=== PATIENT | male | born 1965 | race Caucasian/White ===

== ENCOUNTER 2016-09-08 11:17 | Inpatient (IN) | payer BC ==
[~2016-09-08] VITALS: Ht 177.8 cm; Wt 95.3 kg
[2016-09-08 13:35] VITALS: Ht 177.8 cm; Wt 95.3 kg
[2016-09-08 13:46] VITALS: BP 167/86; PULSE 88; RESP 20
[2016-09-08] MEDS ORDERED: ONDANSETRON 4 MG INJ IV PRN (16:00)
[2016-09-08] MEDS ORDERED: NACL 0.9% 3 ML SYG IV SCH (16:00)
[2016-09-08] MEDS ORDERED: BISACODYL (EC) 5 MG TAB PO PRN (16:00)
[2016-09-08] MEDS ORDERED: DOCUSATE SODIUM 100 MG CAP PO PRN (16:00)
--- NOTE | 2016-09-08 17:00 | RADRPT ---
PROCEDURE: US Abdomen (right upper quadrant). CLINICAL INDICATION: Right upper quadrant abdomen pain. TECHNIQUE: Multiple real-time longitudinal and transverse images of the right upper quadrant of th e abdomen were acquired utilizing a curved array transducer. Images were reviewed on a high-resoluti on PACS workstation. COMPARISON: None FINDINGS: The liver is enlarged and diffusely increased in echogenicity. There is no focal hepatic lesion. Color Doppler and pulsed Doppler sonography demonstrate normal a ntegrade flow in the portal vein. The gallbladder is normal with no stones or wall thickening. There is no pericholecystic fluid oscar ection. The bile ducts are normal with the common bile duct measuring 3.2 mm in diameter. The visualized portions of the pancreas are unremarkable with obscuration of the tail of the pancrea s. No free fluid is present. The right kidney measures 11.0 x 5.7 x 5.8 cm. There is normal echogenicity of the right kidney. There is no perinephric fluid collection. No hydronephrosis, mass, or calculus is seen. IMPRESSION: 1. Hepatomegaly. 2. Fatty metamorphosis of the liver. 3. Otherwise normal right upper quadrant abdomen ultrasound. RPTAT: QQ .Maximo Johns MD, MD Date Time Electronically viewed and signed by .Maximo Johns MD, MD on 09/08/2016 16:59 .R/
[2016-09-08] MEDS: MULTIVITAMINS THERAPEUTIC TAB PO SCH (17:32)
[2016-09-08] MEDS: THIAMINE 100 MG TAB PO SCH (17:32)
[2016-09-08] MEDS: FOLIC ACID 1 MG TAB PO SCH (17:32)
--- NOTE | 2016-09-08 17:50 | HP ---
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 CHIEF COMPLAINT: Anemia. HISTORY OF PRESENT ILLNESS: This is a pleasant 51-year-old gentleman with past medical history of a lcoholism and current alcohol intake 3 to 4 shots of vodka per evening who presented to [facility] secondary for evaluation of anemia. The patient reported that he went to his [facility] doctor last week, and blood draw was done on and was asked to go to emergency room with a hemoglobin 7.2. Upon evaluation at [facility], patient's vital signs were found to be stable . Hemoglobin 8.3, hematocrit 30.1. He was typed and crossed and transfused 1 unit of packed red bl ood cells, and secondary to insurance purposes, the patient has been transferred to [facility]. According to the ER doctor, the patient was stable to be transferred to [facility]. The patient denies having any fever, chills, weight gain, weight loss, anorexia. No chest pain, palpitations, edema, orthopnea. No change in visual acuity, diplopia, photophobia. Complains of having generalized weakness for the past month. No change in the color of stool. No s yncope. Positive for progressively worsening fatigue, generalized weakness, dyspnea on exertion whi ch has been worsening for the past month. The patient does not have any history of colonoscopy in t he past. His stool guaiac was found to be negative at [facility]. At this time, the patient denies having any other discomfort. PAST MEDICAL AND SURGICAL HISTORY: 1. Microcytic anemia. 2. Transaminitis. 3. History of pacemaker for symptomatic bradycardia. 4. Symptomatic bradycardia. 5. History of alcohol abuse. MEDICATIONS: None. FAMILY HISTORY: Mother had colon cancer. SOCIAL HISTORY: Positive for alcohol intake daily, 4 to 5 shots of vodka per night. REVIEW OF SYSTEMS: As above per HPI. Otherwise, 12 review of systems have been found to be negativ e. PHYSICAL EXAMINATION: VITAL SIGNS: Temperature 98.3, pulse 76, respirations 18, blood pressure 134/77, oxygen saturation 97% room air. GENERAL APPEARANCE: The patient is lying in bed comfortably without any distress. He is awake, artemio rt, oriented. He is able to answer my questions properly. EYES, EARS, NOSE, THROAT: Conjunctivae, lids are normal. Pupils are normal. Extraocular normal. Hearing grossly normal. Lips, teeth are normal. Oral mucosa is moist. NECK: Supple. Trachea is midline. No lymphadenopathy. RESPIRATORY: Effort is normal. Clear to auscultate bilaterally. CARDIOVASCULAR: Normal S1, S2. Regular rhythm and rate. No murmur, no bruits, no edema. Peripher al pulses, radial pulses palpable. Capillary refill is normal. CHEST: Normal expansion of thorax during inspiration. GASTROINTESTINAL: Abdomen is soft, nontender, not distended. Bowel sounds are present. No guardin g, no rebound. GENITOURINARY: Deferred. MUSCULOSKELETAL: Upper, lower extremities within normal limits. Full range of motion. Strength 5/ 5, both upper and lower extremities. NEUROLOGIC: Cranial nerves II-XII are grossly intact. PSYCHIATRIC: Normal judgment and insight. Alert, oriented x3. Mood and affect are normal. LABORATORY WORK: WBC 5.3, hemoglobin 8.3, hematocrit 30.1, platelets 437. Sodium 143, potassium 3. 6, chloride 104, bicarbonate 24, BUN 12, creatinine 0.9, GFR greater than 60, glucose 104, calcium 8 .7, magnesium 1.8, total bilirubin 0.4, AST 193, ALT 89, alkaline phosphatase of 130. Troponin nega tive. BNP 42. Reticulocyte count 0.8. Iron level 11, total iron binding ____ 462, iron saturation 2, ferritin 20.6. Albumin 4.4. ASSESSMENT AND PLAN: 1. Symptomatic anemia. The patient at this time has been transfused 1 unit of packed red blood nic ls. Will follow hemoglobin and hematocrit in a.m. Guaiac was found to be negative. 2. History of alcoholism. The patient has been started on folic acid, thiamine and multivitamin. Also will start the patient on Ativan and Librium. Education was provided regarding the risks of th e alcoholism. Alcohol cessation was advised. 3. Transaminitis secondary to history of alcoholism. Will continue to monitor. Will obtain abdomi nal ultrasound. 4. History of symptomatic bradycardia, status post pacemaker placement ____ pacemaker. 5. For deep venous thrombosis prophylaxis, on sequential compression devices. 6. For gastrointestinal prophylaxis, on proton pump inhibitor. 7. Will continue to monitor patient closely. Further recommendations, management and treatment as per clinical course. Dictated By: CATHERINE PRICE MD PN/GUSTAVO Conf#: [id number] DID#: [id number]
[2016-09-08] MEDS: LORAZEPAM 2 MG INJ IV PRN (19:49)
[2016-09-08 20:00] VITALS: BP 134/78; RESP 18
[2016-09-08] MEDS: CHLORDIAZEPOXIDE 25 MG CAP PO SCH (21:05)
[2016-09-09] MEDS: LORAZEPAM 2 MG INJ IV PRN (05:49)
[2016-09-09 05:52] LABS: ADD SCAN DIFF NO
[2016-09-09 05:58] LABS: ABNORMAL IP MESSAGE 1; BASOPHIL # 0.1 10^3/ul (0.0-0.1); BASOPHILS % 1.5 % (0.0-2.0); EOSINOPHILS # 0.3 10^3/ul (0.0-0.5); EOSINOPHILS % 4.7 % (0.0-7.0); HEMATOCRIT 35.2 % (42.0-52.0); HEMOGLOBIN 9.9 g/dl (14.0-18.0); LYMPHOCYTES # 1.2 10^3/ul (0.8-2.9); LYMPHOCYTES % 21.6 % (15.0-51.0); MEAN CORPUSCULAR HEMOGLOBIN 20.2 pg (29.0-33.0); MEAN CORPUSCULAR HGB CONC 28.1 g/dl (32.0-37.0); MEAN CORPUSCULAR VOLUME 71.8 fl (82.0-101.0); MEAN PLATELET VOLUME 9.4 fl (7.4-10.4); MONOCYTE # 0.5 10^3/ul (0.3-0.9); MONOCYTES % 9.8 % (0.0-11.0); NEUTROPHIL # 3.4 10^3/ul (1.6-7.5); PLATELET COUNT 460 10^3/UL (140-415); RED CELL DISTRIBUTION WIDTH 21.6 % (11.5-14.5); WHITE BLOOD COUNT 5.5 10^3/ul (4.8-10.8)
[2016-09-09] MEDS ORDERED: PANTOPRAZOLE (EC) 40 MG TAB PO SCH (06:00)
[2016-09-09 06:14] LABS: ALBUMIN 4.4 g/dl (3.3-4.9)
[2016-09-09 06:15] LABS: POTASSIUM 3.8 mmol/L (3.5-5.1)
[2016-09-09 06:17] LABS: ALBUMIN/GLOBULIN RATIO 1.15; BILIRUBIN,INDIRECT 1.2 mg/dl (0-1.1); BILIRUBIN,TOTAL 1.2 mg/dl (0.2-1.3); CREATININE 0.8 mg/dl (0.61-1.24); TOTAL PROTEIN 8.2 g/dl (6.1-8.1)
[2016-09-09 06:18] LABS: CALCIUM 9.6 mg/dl (8.4-10.2); MAGNESIUM 1.7 mg/dl (1.7-2.5)
[2016-09-09 07:17] LABS: THYROID STIMULATING HORMONE 2.17 MIU/L (0.465-4.680)
[2016-09-09 07:57] VITALS: BP 151/79; RESP 20
[2016-09-09] MEDS: THIAMINE 100 MG TAB PO SCH (08:06)
[2016-09-09] MEDS: FOLIC ACID 1 MG TAB PO SCH (08:06)
[2016-09-09] MEDS: CHLORDIAZEPOXIDE 25 MG CAP PO SCH (08:06)
[2016-09-09] MEDS: MULTIVITAMINS THERAPEUTIC TAB PO SCH (08:06)
--- NOTE | 2016-09-09 11:00 | PDOCDIS ---
Discharge Instructions CONDITION Patient Condition: Good HOME CARE INSTRUCTIONS: Special Diet: regular ACTIVITY: Activity Restrictions: No Restrictions FOLLOW UP/APPOINTMENTS Appointments Follow-up with primary care physician on 09/11/2016 OTHER ORDERS: Other Orders: Refrain from consumption of any alcoholic drinks CATHERINE PRICE MD Sep 09, 2016 11:00
[2016-09-09] MEDS ORDERED: FOLI-49 PO (11:03)
[2016-09-09] MEDS ORDERED: MULTI PO (11:03)
[2016-09-09] MEDS ORDERED: Thiamine PO (11:03)
[2016-09-09] MEDS ORDERED: LORA1TAB PO (11:03)
[2016-09-09] MEDS ORDERED: CHLO25CA9 PO (11:03)
[2016-09-09] MEDS ORDERED: ONDA-43 PO (11:03)
[2016-09-09] MEDS ORDERED: OMEP20CA16 PO (11:03)
[2016-09-09] MEDS ORDERED: ASCO500C7 PO (11:08)
[2016-09-09] MEDS ORDERED: FER325 PO (11:08)
--- NOTE | 2016-09-09 11:50 | DS ---
DATE OF ADMISSION: 09/08/2016 DATE OF DISCHARGE: 09/09/2016 CONSULTANTS: None. PROCEDURE: None. DIAGNOSES: 1. Symptomatic anemia, status post transfusion 1 unit packed red blood cell and negative guaiac. 2. Microcytic anemia. The patient was started on ferrous sulfate. 3. History of alcoholism. The patient was started on folic acid, thiamine and multivitamin, Ativan and Librium, alcohol cessation was advised. 4. Transaminitis secondary to alcoholism, improving. 5. History of symptomatic bradycardia status post pacemaker placement. 6. Anxiety secondary to alcohol withdrawal resolved. LABORATORY: Sodium 141, potassium 3.8, chloride 102, bicarbonate 28, BUN 10, creatinine 0.80, gluco se 107, calcium 9.6, magnesium 1.7, direct bilirubin 0, indirect bilirubin 1.2, AST 156, ALT 88, alk rip phosphatase 129. Total protein 8.2, albumin 4.4. WBC 5.5, hemoglobin 9.9, hematocrit 35.2, p latelets 460, MCV 71.8, RDW 21.6. HOSPITAL COURSE: Mr. William Toure is a pleasant 51-year-old gentleman with past medical history o f alcoholism who currently drinks 3 to 4 shots of vodka per evening and presented to [facility] for evaluation of anemia. The patient was seen and evaluated by his primary care hermelinda spear last week. Blood draw was obtained and patient was called and asked to go to the emergency r oom secondary to hemoglobin 7.2. Upon evaluation at [facility] the patient's vital signs were found to be stable, hemoglobin 8.3, hematocrit 30.1. The patient was typed and crossed and transfused 2 units of packed red blood cell, secondary to insurance purpose and patient be capitated to [facility]. He was transferred to [facility]. According to the ER docto r, the patient was stable to transfer to [facility]. The patient denied having an y chest pain, shortness of breath or any other discomfort except generalized weakness. No change in the color of stool. No dysuria, hematuria, urgency, incontinence, no melena, no hematochezia or he matemesis. The patient was started on folic acid, multivitamin, thiamine, Ativan and Librium. His hemoglobin and hematocrit have been improving since his admission. His visit at [facility] had a brannon walker talk with Mr. Toure regarding his history and current use of alcohol intake and discussed t he use of Librium and Ativan with him that he will need in case of having any alcohol withdrawal. I also have discussed the risks of continuing alcohol intake with possible cirrhosis, end-stage renal disease and with him in detail. At this time, the patient has decided to quit drinking. He has done this in the past, but he was unsuccessful secondary to withdrawal, although, at this time h e is adamant that he will discontinue drinking. I will get social service involved to get informatio n regarding AA meetings and other helpful full . At this time, patient is medically stable to be discharged home with a close followup with his primary care physician as outpatient. He needs to have his liver function tests and CBC evaluated in 2 days. Dictated By: CATHERINE ROSA/GUSTAVO Conf#: [id number] DID#: [id number]
== END 2016-09-09 12:00 | disposition home or self-care (01) | DRG 812 ==
LOC: MS2 13:01
PROVIDERS: ADMIT Internal Medicine; ATTEND Internal Medicine
DX: D64.9 Anemia, unspecified (principal); F10.239 Alcohol dependence with withdrawal, unspecified; F10.280 Alcohol dependence with alcohol-induced anxiety disorder; D50.9 Iron deficiency anemia, unspecified; R74.0 Nonspecific elevation of levels of transaminase and lactic acid dehydrogenase [LDH]; Z86.59 Personal history of other mental and behavioral disorders; Z95.0 Presence of cardiac pacemaker
CPT/HCPCS: 76705; 80053; 83735; 84443; 85025; J2060; J2405

== ENCOUNTER 2017-03-12 15:41 | Inpatient (IN) | payer BC ==
[~2017-03-12] VITALS: Ht 177.8 cm; Wt 100.6 kg
[~2017-03-12 15:41] MED LIST: ASCO500C7 PO; CHLO25CA9 PO; FER325 PO; FOLI-49 PO; LORA1TAB PO; MULTI PO; OMEP20CA16 PO; ONDA-43 PO; Thiamine PO
[2017-03-12 21:00] VITALS: Ht 177.8 cm; Wt 100.6 kg
[2017-03-12 21:16] VITALS: PULSE 91
[2017-03-12 21:18] VITALS: BP 128/71; RESP 16
[2017-03-12] MEDS ORDERED: ONDANSETRON 4 MG INJ IV PRN (22:00)
[2017-03-12] MEDS ORDERED: LORAZEPAM 1 MG TAB PO PRN (22:00)
[2017-03-13] VITALS (11 sets, daily range): BP systolic 118–136; BP diastolic 63–80; PULSE 74–90; RESP 18–20
[2017-03-13 01:13] LABS: BASOPHIL # 0.1 10^3/ul (0.0-0.1); BASOPHILS % 1.2 % (0.0-2.0); EOSINOPHILS # 0.1 10^3/ul (0.0-0.5); EOSINOPHILS % 1.6 % (0.0-7.0); HEMATOCRIT 25.9 % (42.0-52.0); HEMOGLOBIN 7.8 g/dl (14.0-18.0); LYMPHOCYTES # 1.1 10^3/ul (0.8-2.9); LYMPHOCYTES % 13.9 % (15.0-51.0); MEAN CORPUSCULAR HEMOGLOBIN 26.5 pg (29.0-33.0); MEAN CORPUSCULAR HGB CONC 30.1 g/dl (32.0-37.0); MEAN CORPUSCULAR VOLUME 88.1 fl (82.0-101.0); MEAN PLATELET VOLUME 9.6 fl (7.4-10.4); MONOCYTES % 12.1 % (0.0-11.0); NEUTROPHIL # 5.8 10^3/ul (1.6-7.5); NEUTROPHILS % 70.5 % (39.0-77.0); PLATELET COUNT 515 10^3/UL (140-415); RED BLOOD COUNT 2.94 10^6/ul (4.70-6.10); RED CELL DISTRIBUTION WIDTH 16.6 % (11.5-14.5); WHITE BLOOD COUNT 8.2 10^3/ul (4.8-10.8)
[2017-03-13 01:27] LABS: IRON 15 ug/dl (35-150)
[2017-03-13 01:30] LABS: ALBUMIN 3.1 g/dl (3.3-4.9); ALBUMIN/GLOBULIN RATIO 0.88; BILIRUBIN,INDIRECT 0.7 mg/dl (0-1.1); BILIRUBIN,TOTAL 0.7 mg/dl (0.2-1.3); CALCIUM 8.1 mg/dl (8.4-10.2); CREATININE 0.94 mg/dl (0.61-1.24); MAGNESIUM 1.9 mg/dl (1.7-2.5); POTASSIUM 4.4 mmol/L (3.5-5.1); TOTAL PROTEIN 6.6 g/dl (6.1-8.1)
[2017-03-13 01:46] LABS: TOTAL IRON BINDING CAPACITY 371 ug/dl (241-421)
[2017-03-13 04:50] LABS: FERRITIN 21.9 ng/ml (11.1-264.0)
[2017-03-13] MEDS ORDERED: PANTOPRAZOLE 40 MG INJ IV SCH (06:00)
--- NOTE | 2017-03-13 07:33 | HP ---
Date/Time of Note Date/Time of Note DATE: 03/13/17 TIME: 07:26 Assessment/Plan VTE Prophylaxis VTE Prophylaxis Intervention: SCD's Lines/Catheters IV Catheter Type (from Nrs): Saline Lock Assessment/Plan Assessment/Plan 1. Anemia, suspect GI blood loss given history stool and alcohol abuse -Check FOBT, iron profile and ferritin -PPI -GI consult -Blood transfusion 2. History of pacemaker, likely 2/2 sick sinus -Continue telemetry monitoring 3. Epigastric abdominal pain -Abdominal ultrasound from August showed hepatomegaly and fatty liver -This could be from a gastritis or PUD -Continue PPI 4. Alcohol abuse, last drink 2 days ago -Monitor for withdrawal -Banana bag with as needed Ativan HPI/ROS Admit Date/Time Admit Date/Time Mar 12, 2017 at 21:00 Hx of Present Illness This is a 52-year-old male with a history of bradycardia status post pacemaker, alcohol abuse, anemia, fatty liver who initially presented to an outside hospital for anemia. Patient was transferred to [facility] for insurance reasons. He had a lab work at a clinic which showed hemoglobin of 7.2. As such he was told to go to the ER. At the outside hospital his hemoglobin was found to be 8.3 and was given blood transfusions. He complains of generalized weakness and epigastric abdominal pain. Reported dark stool x 8 days Denied hematemesis or BRBPR. Patient was admitted here in August of this year after he was transferred from [facility] for anemia. At that time he was given blood transfusion and was discharged. PMH/Family/Social Social History Smoking Status: Never smoker Exam/Review of Systems Vital Signs Vitals Vital Signs Date Time Temp Pulse Resp B/P Pulse Ox O2 Delivery O2 Flow Rate FiO2 03/13/17 04:29 79 03/13/17 03:58 98.6 19 123/64 98 Intake and Output 03/12/17 03/12/17 03/13/17 15:00 23:00 07:00 Intake Total 850 ml Output Total 900 ml Balance -50 ml Exam Constitutional: alert, oriented, well developed Head: atraumatic, normocephalic Eyes: EOMI, PERRL Respiratory: clear to auscultation, normal air movement Cardiovascular: nl pulses, regular rate and rhythm Gastrointestinal: soft, tender Extremities: normal pulses Labs Result Diagram: 03/13/17 0042 03/13/17 0042 Medications Medications Current Medications Ferrous Sulfate (Ferrous Sulfate (Ec)) 325 mg DAILY PO ; Start 03/13/17 at 09: 00 Folic Acid (Folic Acid) 1 mg DAILY PO ; Start 03/13/17 at 09:00 Lorazepam (Ativan) 1 mg Q6 PRN PO AGITATION/ANXIETY; Start 03/12/17 at 22:00 Multivitamins Therapeutic (Theragran) 1 tab DAILY PO ; Start 03/13/17 at 09:00 Thiamine HCl (Vitamin B1) 100 mg DAILY PO ; Start 03/13/17 at 09:00 Pantoprazole (Protonix Iv) 40 mg BID@06,18 IV Last administered on 03/13/17t 06:29; Admin Dose 40 MG; Start 03/13/17 at 06:00 Ondansetron HCl (Zofran Inj) 4 mg Q6H PRN IV NAUSEA AND/OR VOMITING; Start at 22:00 Morphine Sulfate (morphine) 2 mg Q4H PRN IV PAIN; Start 03/12/17 at 22:00 TRACE BUSTOS MD Mar 13, 2017 07:33
[2017-03-13] MEDS ORDERED: ACETAMINOPHEN 325 MG TAB PO PRN (08:00)
[2017-03-13] MEDS: THIAMINE 100 MG TAB PO SCH (08:36)
[2017-03-13] MEDS: FERROUS SULFATE (EC) 325 MG TAB PO SCH (08:36)
[2017-03-13] MEDS: FOLIC ACID 1 MG TAB PO SCH (08:37)
[2017-03-13] MEDS: MULTIVITAMINS THERAPEUTIC TAB PO SCH (08:37)
[2017-03-13] MEDS ORDERED: LORAZEPAM 2 MG INJ IV PRN (09:30)
[2017-03-13] MEDS ORDERED: DEXTROSE 5%-0.45% NACL 1,000 ML IV SCH (11:30)
[2017-03-13] MEDS: MULTIVITAMINS 10 ML, THIAMINE 100 MG, FOLIC ACID 1 MG in SOD CHLORIDE 0.9% 1,000 ML IVPB SCH (11:58)
[2017-03-13] MEDS: PANTOPRAZOLE IV 80 MG in SOD CHLORIDE 0.9% 100 ML IV SCH ×2 (11:59→21:21)
--- NOTE | 2017-03-13 15:22 | PN ---
Date/Time of Note Date/Time of Note DATE: 03/13/17 TIME: 15:21 Assessment/Plan VTE Prophylaxis VTE Prophylaxis Intervention: SCD's Lines/Catheters [facility]from [facility] Saline Lock Assessment/Plan Chief Complaint/Hosp Course Patient is a 52-year-old male with a past medical history of bradycardia status post pacemaker, alcoholism, anemia and fatty liver who presented as a transfer for anemia and possible GI bleed. Patient's hemoglobin was low upon admission. Assessment and plan GI bleed, questionable true GI bleed versus iron supplementation Anemia History of pacemaker Bradycardia, questionable sick sinus Epigastric abdominal pain Alcohol abuse Fatty liver -GI has been consulted, Protonix drip for now, patient will be on clears, requisitions appreciated -Patient transfused, monitor overnight, transfuse as needed repeat CBC ordered after transfusion -Control as needed -Fluid hydration -Ferritin low, very likely iron deficiency anemia, Problems: Subjective 24 Hr Interval Summary Free Text/Dictation no acute complaints, mild epigastric pain still Exam/Review of Systems Vital Signs Vitals Vital Signs Date Time Temp Pulse Resp B/P Pulse Ox O2 Delivery O2 Flow Rate FiO2 03/13/17 12:00 82 03/13/17 11:50 98.2 18 124/70 97 Intake and Output 03/12/17 03/12/17 03/13/17 15:00 23:00 07:00 Intake Total 850 ml Output Total 900 ml Balance -50 ml Exam Physical exam General: Patient is laying in bed and answers questions appropriately Mentation: Patient is alert and oriented 4, Head: Normocephalic atraumatic Eyes: EOMI, pupils reactive to light Neck: Supple, nontender, midline Respiratory: Clear to auscultation bilaterally Cardiovascular: regular rate, no obvious murmurs Gastrointestinal:mildly tender to epigastric palpation, bowel sounds heard. Neurological: Moves all extremities spontaneously Skin: No new skin lesions Results Result Diagram: 03/13/172 03/13/172 Results 24 hrs Laboratory Tests Test 03/13/17 00:42 03/13/17 11:10 White Blood Count 8.2 # Red Blood Count 2.94 #L Hemoglobin 7.8 #L Hematocrit 25.9 #L Mean Corpuscular Volume 88.1 # Mean Corpuscular Hemoglobin 26.5 #L Mean Corpuscular Hemoglobin Concent 30.1 L Red Cell Distribution Width 16.6 #H Platelet Count 515 H Mean Platelet Volume 9.6 Neutrophils % 70.5 Lymphocytes % 13.9 L Monocytes % 12.1 H Eosinophils % 1.6 Basophils % 1.2 Nucleated Red Blood Cells % 0.0 Neutrophils # 5.8 Lymphocytes # 1.1 Monocytes # 1.0 H Eosinophils # 0.1 Basophils # 0.1 Nucleated Red Blood Cells # 0.0 Sodium Level 141 Potassium Level 4.4 Chloride Level 108 Carbon Dioxide Level 23 Anion Gap 14 Blood Urea Nitrogen 10 Creatinine 0.94 Glucose Level 127 Calcium Level 8.1 L Phosphorus Level 3.0 Magnesium Level 1.9 Iron Level 15 L Total Iron Binding Capacity 371 Percent Iron Saturation 4 L Ferritin 21.9 Total Bilirubin 0.7 Direct Bilirubin 0.00 Indirect Bilirubin 0.7 Aspartate Amino Transf (AST/SGOT) 272 H Alanine Aminotransferase (ALT/SGPT) 90 H Alkaline Phosphatase 197 H Total Protein 6.6 Albumin 3.1 L Globulin 3.50 H Albumin/Globulin Ratio 0.88 Stool Occult Blood NEGATIVE Medications Medications Current Medications Ferrous Sulfate (Ferrous Sulfate (Ec)) 325 mg DAILY PO Last administered on 08:36; Admin Dose 325 MG; Start 03/13/17 at 09:00 Folic Acid (Folic Acid) 1 mg DAILY PO Last administered on 03/13/17 08:37; Admin Dose 1 MG; Start 03/13/17 at 09:00 Lorazepam (Ativan) 1 mg Q6 PRN PO AGITATION/ANXIETY; Start 03/12/17 at 22:00 Multivitamins Therapeutic (Theragran) 1 tab DAILY PO Last administered on 03/13 08:37; Admin Dose 1 TAB; Start 03/13/17 at 09:00 Thiamine HCl (Vitamin B1) 100 mg DAILY PO Last administered on 03/13/17 08:36 ; Admin Dose 100 MG; Start 03/13/17 at 09:00 Ondansetron HCl (Zofran Inj) 4 mg Q6H PRN IV NAUSEA AND/OR VOMITING; Start at 22:00 Morphine Sulfate 2 mg 2 mg Q4H PRN IV PAIN; Start 03/12/17 at 22:00 Multivitamins/ Thiamine HCl/ Folic Acid/Sodium Chloride (Mvi Adult/ Vitamin B1/ Folic Acid/NS) 1,011.2 ml @ 125 mls/ hr DAILY@09 IVPB Last administered on 11:58; Admin Dose 125 MLS/HR; Start 03/13/17 at 09:00; Stop 03/15/17 at 22:00 Acetaminophen 650 mg 650 mg Q4H PRN PO PAIN AND OR ELEVATED TEMP Last administered on 03/13/17 08:12; Admin Dose 650 MG; Start 03/13/17 at 08:00 Pantoprazole/ Sodium Chloride (Protonix Iv/NS) 100 ml @ 10 mls/hr Q10H IV Last administered on 03/13/17 11:59; Admin Dose 10 MLS/HR; Start 03/13/17 at 10:00 Lorazepam 2 mg 2 mg Q10MIN PRN IV seizure; Start 03/13/17 at 09:30 Dextrose/Sodium Chloride (D5-1/2ns) 1,000 ml @ 70 mls/hr [id number] IV ; Start at 11:30 AURELIO GRIMM Mar 13, 2017 15:22
[2017-03-13 17:07] LABS: BASOPHIL # 0.1 10^3/ul (0.0-0.1); BASOPHILS % 1.1 % (0.0-2.0); EOSINOPHILS # 0.3 10^3/ul (0.0-0.5); EOSINOPHILS % 3.2 % (0.0-7.0); HEMATOCRIT 31.1 % (42.0-52.0); HEMOGLOBIN 9.8 g/dl (14.0-18.0); LYMPHOCYTES # 1.3 10^3/ul (0.8-2.9); LYMPHOCYTES % 15.3 % (15.0-51.0); MEAN CORPUSCULAR HEMOGLOBIN 27.6 pg (29.0-33.0); MEAN CORPUSCULAR HGB CONC 31.5 g/dl (32.0-37.0); MEAN CORPUSCULAR VOLUME 87.6 fl (82.0-101.0); MEAN PLATELET VOLUME 9.3 fl (7.4-10.4); MONOCYTES % 10.9 % (0.0-11.0); NEUTROPHILS % 68.7 % (39.0-77.0); PLATELET COUNT 533 10^3/UL (140-415); RED BLOOD COUNT 3.55 10^6/ul (4.70-6.10); RED CELL DISTRIBUTION WIDTH 16.1 % (11.5-14.5); WHITE BLOOD COUNT 8.7 10^3/ul (4.8-10.8)
[2017-03-13] MEDS: SOD CHLORIDE 0.45% 1,000 ML IV SCH ×2 (19:00→21:22)
[2017-03-14] VITALS (12 sets, daily range): BP systolic 119–148; BP diastolic 67–80; PULSE 70–94; RESP 16–20
[2017-03-14] MEDS: SOD CHLORIDE 0.45% 1,000 ML IV SCH ×2 (01:30→11:30)
[2017-03-14] MEDS: PANTOPRAZOLE IV 80 MG in SOD CHLORIDE 0.9% 100 ML IV SCH ×4 (06:00→21:12)
[2017-03-14 07:13] LABS: BASOPHIL # 0.1 10^3/ul (0.0-0.1); EOSINOPHILS # 0.3 10^3/ul (0.0-0.5); EOSINOPHILS % 3.7 % (0.0-7.0); HEMATOCRIT 30.8 % (42.0-52.0); HEMOGLOBIN 9.7 g/dl (14.0-18.0); LYMPHOCYTES # 1.4 10^3/ul (0.8-2.9); LYMPHOCYTES % 16.3 % (15.0-51.0); MEAN CORPUSCULAR HGB CONC 31.5 g/dl (32.0-37.0); MEAN PLATELET VOLUME 9.3 fl (7.4-10.4); MONOCYTES % 11.4 % (0.0-11.0); NEUTROPHIL # 5.6 10^3/ul (1.6-7.5); NEUTROPHILS % 66.8 % (39.0-77.0); PLATELET COUNT 563 10^3/UL (140-415); RED BLOOD COUNT 3.46 10^6/ul (4.70-6.10); RED CELL DISTRIBUTION WIDTH 16.4 % (11.5-14.5); WHITE BLOOD COUNT 8.4 10^3/ul (4.8-10.8)
[2017-03-14 07:51] LABS: ALBUMIN 3.4 g/dl (3.3-4.9); ALBUMIN/GLOBULIN RATIO 0.89; BILIRUBIN,INDIRECT 0.9 mg/dl (0-1.1); BILIRUBIN,TOTAL 0.9 mg/dl (0.2-1.3); CALCIUM 8.2 mg/dl (8.4-10.2); CREATININE 0.85 mg/dl (0.61-1.24); TOTAL PROTEIN 7.2 g/dl (6.1-8.1)
[2017-03-14] MEDS: MULTIVITAMINS THERAPEUTIC TAB PO SCH (08:46)
[2017-03-14] MEDS: MULTIVITAMINS 10 ML, THIAMINE 100 MG, FOLIC ACID 1 MG in SOD CHLORIDE 0.9% 1,000 ML IVPB SCH (08:46)
[2017-03-14] MEDS: FERROUS SULFATE (EC) 325 MG TAB PO SCH (08:46)
[2017-03-14] MEDS: FOLIC ACID 1 MG TAB PO SCH (08:46)
[2017-03-14] MEDS: THIAMINE 100 MG TAB PO SCH (08:46)
--- NOTE | 2017-03-14 11:52 | CONS ---
Date/Time of Note Date/Time of Note DATE: 03/14/17 TIME: 11:31 Assessment/Plan Assessment/Plan Chief Complaint/Hosp Course Summary Assessment and Plan: Assessment: Anemia Elevated LFT's Abd pain Fatty liver ETOH abuse Plan: EGD tomorrow NPO after midnight Check hepatitis panel Patient seen in collaboration with Dr. Lombardo Endoscopy - risks/benefits/alternatives/indications of procedure and sedation/ anesthesia discussed with patient who states understanding and gives informed consent to proceed. Questions were answered. Chief Complaint/Reason for Visit: Anemia, elevated LFT's History of Present Illness: This is a pleasant 52-year-old male with a history anemia, fatty liver, ETOH abuse and pacemaker placement. Pt states he has been having dark stools for over a week with last dark stool on Wednesday. He states this has happened before and was found to be anemic needing blood transfusions. He currently drinks 6-8 glass of "hard alcohol" daily. He quit drinking alcohol in the past for a length of 6 months, but started drinking again due to external factors. Upon admission Hgb 7.8 Hct 25.9 Iron sat 4% Serum iron 15 TIBC 374. Currently Hbg 9.7 Hct 30.8. He denies any further episodes of "dark stools", stool occult blood negative during this admission. LFT's elevated and consistent with alcoholic liver disease [id number] ALT 74. He c/o abd pain, poor appetite, and nausea. Denies hematemesis, unintentional weight loss, or pyrosis. He has not had a previous endoscopy. Past Medical History: Anemia Pacemaker ETOG abuse Fatty liver Allergies: No known Allergies Family History: No pertinent history Social History: ETOH- 6-8 drinks per day of hard alcohol Denies smoking Denies current drug use Quit 30 years ago Never used IV drugs Problems: Consultation Date/Type/Reason Admit Date/Time Mar 12, 2017 at 21:00 Date of Consultation: Mar 14, 2017 Type of Consultation: GI Reason for Consultation Anemia Constitutional: no complaints Eyes: no complaints ENT: no complaints Respiratory: no complaints Cardiovascular: no complaints Gastrointestinal: blood, decreased appetite, diarrhea, nausea, pain, vomiting Genitourinary: no complaints Musculoskeletal: no complaints Skin: no complaints Neurologic: no complaints Endocrine: no complaints Lymphatic: no complaints Psychological: nl mood/affect Immunologic: no complaints Past Medical History Anemia, Pacemaker, Fatty liver Past Surgical History Past Surgical Hx: no surgical history Family History Significant Family History: no pertinent family hx Social History Alcohol Use: heavy Smoking Status: Never smoker Drug Use: none Other Social History Hx of drug use quit 30 years ago Never used IV drugs Exam/Review of Systems Vital Signs Vitals Vital Signs Date Time Temp Pulse Resp B/P Pulse Ox O2 Delivery O2 Flow Rate FiO2 03/14/17 08:48 70 03/14/17 07:49 99.9 19 119/67 97 Intake and Output 03/13/17 03/13/17 03/14/17 15:00 23:00 07:00 Intake Total 1660 ml 1735 ml Balance 1660 ml 1735 ml Exam Constitutional: alert, oriented Psych: no complaints Head: atraumatic, normocephalic Eyes: nl conjunctiva ENMT: nl external ears & nose Neck: supple Respiratory: clear to auscultation Cardiovascular: regular rate and rhythm Gastrointestinal: bowel sounds, hepatomegaly, soft, tender, No firm, No mass, No rebound or guarding, No splenomegaly, No surgical scars Genitourinary - Male: nl penis Musculoskeletal: nl extremities to inspection Extremities: normal pulses Results Result Diagram: 03/14/17 0642 03/14/17 0642 Results 24 hrs Laboratory Tests Test 03/13/17 16:41 03/14/17 06:42 White Blood Count 8.7 8.4 Red Blood Count 3.55 #L 3.46 L Hemoglobin 9.8 #L 9.7 L Hematocrit 31.1 #L 30.8 L Mean Corpuscular Volume 87.6 89.0 Mean Corpuscular Hemoglobin 27.6 L 28.0 L Mean Corpuscular Hemoglobin Concent 31.5 L 31.5 L Red Cell Distribution Width 16.1 H 16.4 H Platelet Count 533 H 563 H Mean Platelet Volume 9.3 9.3 Neutrophils % 68.7 66.8 Lymphocytes % 15.3 16.3 Monocytes % 10.9 11.4 H Eosinophils % 3.2 3.7 Basophils % 1.1 1.0 Nucleated Red Blood Cells % 0.0 0.0 Neutrophils # 6.0 5.6 Lymphocytes # 1.3 1.4 Monocytes # 1.0 H 1.0 H Eosinophils # 0.3 0.3 Basophils # 0.1 0.1 Nucleated Red Blood Cells # 0.0 0.0 Sodium Level 139 Potassium Level 4.0 Chloride Level 106 Carbon Dioxide Level 23 Anion Gap 14 Blood Urea Nitrogen 8 Creatinine 0.85 Glucose Level 89 Calcium Level 8.2 L Total Bilirubin 0.9 Direct Bilirubin 0.00 Indirect Bilirubin 0.9 Aspartate Amino Transf (AST/SGOT) 160 H Alanine Aminotransferase (ALT/SGPT) 74 H Alkaline Phosphatase 211 H Total Protein 7.2 Albumin 3.4 Globulin 3.80 H Albumin/Globulin Ratio 0.89 Medications Medications Current Medications Ferrous Sulfate (Ferrous Sulfate (Ec)) 325 mg DAILY PO Last administered on 08:46; Admin Dose 325 MG; Start 03/13/17 at 09:00 Folic Acid (Folic Acid) 1 mg DAILY PO Last administered on 03/14/17 08:46; Admin Dose 1 MG; Start 03/13/17 at 09:00 Lorazepam (Ativan) 1 mg Q6 PRN PO AGITATION/ANXIETY; Start 03/12/17 at 22:00 Multivitamins Therapeutic (Theragran) 1 tab DAILY PO Last administered on 03/14 08:46; Admin Dose 1 TAB; Start 03/13/17 at 09:00 Thiamine HCl (Vitamin B1) 100 mg DAILY PO Last administered on 03/14/17 08:46 ; Admin Dose 100 MG; Start 03/13/17 at 09:00 Ondansetron HCl (Zofran Inj) 4 mg Q6H PRN IV NAUSEA AND/OR VOMITING; Start at 22:00 Morphine Sulfate 2 mg 2 mg Q4H PRN IV PAIN; Start 03/12/17 at 22:00 Multivitamins/ Thiamine HCl/ Folic Acid/Sodium Chloride (Mvi Adult/ Vitamin B1/ Folic Acid/NS) 1,011.2 ml @ 125 mls/ hr DAILY@09 IVPB Last administered on 08:46; Admin Dose 125 MLS/HR; Start 03/13/17 at 09:00; Stop 03/15/17 at 22:00 Acetaminophen 650 mg 650 mg Q4H PRN PO PAIN AND OR ELEVATED TEMP Last administered on 03/13/17 08:12; Admin Dose 650 MG; Start 03/13/17 at 08:00 Pantoprazole/ Sodium Chloride (Protonix Iv/NS) 100 ml @ 10 mls/hr Q10H IV Last administered on 03/14/17 07:03; Admin Dose 10 MLS/HR; Start 03/13/17 at 10:00 Lorazepam 2 mg 2 mg Q10MIN PRN IV seizure; Start 03/13/17 at 09:30 Sodium Chloride (1/2 NS) 1,000 ml @ 100 mls/hr Q10H IV Last administered on 21:22; Admin Dose 100 MLS/HR; Start 03/13/17 at 15:30 ROMAIN KERNS Mar 14, 2017 11:43
--- NOTE | 2017-03-14 13:08 | PN ---
Date/Time of Note Date/Time of Note DATE: 03/14/17 TIME: 13:04 Assessment/Plan VTE Prophylaxis VTE Prophylaxis Intervention: SCD's Lines/Catheters IV [facility] Peripheral IV Assessment/Plan Chief Complaint/Hosp Course Patient is a 52-year-old male with a past medical history of bradycardia status post pacemaker, alcoholism, anemia and fatty liver who presented as a transfer for anemia and possible GI bleed. Patient's hemoglobin was low upon admission. Assessment and plan GI bleed, upper? Anemia History of pacemaker Bradycardia, questionable sick sinus Epigastric abdominal pain Alcohol abuse Fatty liver -GI has been consulted, Protonix drip for now, patient will be on clears, NPO after midnight, EGD tomorrow. -Patient transfused 03/13/17 , monitor, transfuse as needed -Fluid hydration -Ferritin low, hx iron deficiency anemia -prn ativan -seizure precautions -medically non-compliant in the past Problems: Subjective 24 Hr Interval Summary Free Text/Dictation minimal abdominal pain, able to tolerate clears. Exam/Review of Systems Vital Signs Vitals Vital Signs Date Time Temp Pulse Resp B/P Pulse Ox O2 Delivery O2 Flow Rate FiO2 03/14/17 12:00 98.3 82 18 139/70 96 Intake and Output 03/13/17 03/13/17 03/14/17 15:00 23:00 07:00 Intake Total 1660 ml 1735 ml Balance 1660 ml 1735 ml Exam Physical exam General: Patient is laying in bed and answers questions appropriately Mentation: Patient is alert and oriented 4, Head: Normocephalic atraumatic Eyes: EOMI, pupils reactive to light Neck: Supple, nontender, midline Respiratory: Clear to auscultation bilaterally Cardiovascular: regular rate, no obvious murmurs Gastrointestinal:mildly tender to epigastric palpation, bowel sounds heard. Neurological: Moves all extremities spontaneously Skin: No new skin lesions Results Result Diagram: 03/14/17 0642 03/14/17 0642 Results 24 hrs Laboratory Tests Test 03/13/17 16:41 03/14/17 06:42 White Blood Count 8.7 8.4 Red Blood Count 3.55 #L 3.46 L Hemoglobin 9.8 #L 9.7 L Hematocrit 31.1 #L 30.8 L Mean Corpuscular Volume 87.6 89.0 Mean Corpuscular Hemoglobin 27.6 L 28.0 L Mean Corpuscular Hemoglobin Concent 31.5 L 31.5 L Red Cell Distribution Width 16.1 H 16.4 H Platelet Count 533 H 563 H Mean Platelet Volume 9.3 9.3 Neutrophils % 68.7 66.8 Lymphocytes % 15.3 16.3 Monocytes % 10.9 11.4 H Eosinophils % 3.2 3.7 Basophils % 1.1 1.0 Nucleated Red Blood Cells % 0.0 0.0 Neutrophils # 6.0 5.6 Lymphocytes # 1.3 1.4 Monocytes # 1.0 H 1.0 H Eosinophils # 0.3 0.3 Basophils # 0.1 0.1 Nucleated Red Blood Cells # 0.0 0.0 Sodium Level 139 Potassium Level 4.0 Chloride Level 106 Carbon Dioxide Level 23 Anion Gap 14 Blood Urea Nitrogen 8 Creatinine 0.85 Glucose Level 89 Calcium Level 8.2 L Total Bilirubin 0.9 Direct Bilirubin 0.00 Indirect Bilirubin 0.9 Aspartate Amino Transf (AST/SGOT) 160 H Alanine Aminotransferase (ALT/SGPT) 74 H Alkaline Phosphatase 211 H Total Protein 7.2 Albumin 3.4 Globulin 3.80 H Albumin/Globulin Ratio 0.89 Medications Medications Current Medications Ferrous Sulfate (Ferrous Sulfate (Ec)) 325 mg DAILY PO Last administered on 08:46; Admin Dose 325 MG; Start 03/13/17 at 09:00 Folic Acid (Folic Acid) 1 mg DAILY PO Last administered on 03/14/17 08:46; Admin Dose 1 MG; Start 03/13/17 at 09:00 Lorazepam (Ativan) 1 mg Q6 PRN PO AGITATION/ANXIETY; Start 03/12/17 at 22:00 Multivitamins Therapeutic (Theragran) 1 tab DAILY PO Last administered on 03/14 08:46; Admin Dose 1 TAB; Start 03/13/17 at 09:00 Thiamine HCl (Vitamin B1) 100 mg DAILY PO Last administered on 03/14/17 08:46 ; Admin Dose 100 MG; Start 03/13/17 at 09:00 Ondansetron HCl (Zofran Inj) 4 mg Q6H PRN IV NAUSEA AND/OR VOMITING; Start at 22:00 Morphine Sulfate 2 mg 2 mg Q4H PRN IV PAIN; Start 03/12/17 at 22:00 Multivitamins/ Thiamine HCl/ Folic Acid/Sodium Chloride (Mvi Adult/ Vitamin B1/ Folic Acid/NS) 1,011.2 ml @ 125 mls/ hr DAILY@09 IVPB Last administered on 08:46; Admin Dose 125 MLS/HR; Start 03/13/17 at 09:00; Stop 03/15/17 at 22:00 Acetaminophen 650 mg 650 mg Q4H PRN PO PAIN AND OR ELEVATED TEMP Last administered on 03/13/17 08:12; Admin Dose 650 MG; Start 03/13/17 at 08:00 Pantoprazole/ Sodium Chloride (Protonix Iv/NS) 100 ml @ 10 mls/hr Q10H IV Last administered on 03/14/17 07:03; Admin Dose 10 MLS/HR; Start 03/13/17 at 10:00 Lorazepam 2 mg 2 mg Q10MIN PRN IV seizure; Start 03/13/17 at 09:30 Sodium Chloride (1/2 NS) 1,000 ml @ 100 mls/hr Q10H IV Last administered on 21:22; Admin Dose 100 MLS/HR; Start 03/13/17 at 15:30 AURELIO GRIMM Mar 14, 2017 13:08
[2017-03-14 20:35] LABS: HEPATITIS B CORE ANTIBODY NEGATIVE (NEGATIVE)
[2017-03-15] VITALS (19 sets, daily range): BP systolic 110–148; BP diastolic 64–83; PULSE 70–101; RESP 12–25
[2017-03-15] MEDS: PANTOPRAZOLE IV 80 MG in SOD CHLORIDE 0.9% 100 ML IV SCH ×2 (02:00→08:56)
[2017-03-15] MEDS: MULTIVITAMINS THERAPEUTIC TAB PO SCH (09:00)
[2017-03-15] MEDS: THIAMINE 100 MG TAB PO SCH (09:00)
[2017-03-15] MEDS: FOLIC ACID 1 MG TAB PO SCH (09:00)
[2017-03-15] MEDS: FERROUS SULFATE (EC) 325 MG TAB PO SCH (09:00)
[2017-03-15] MEDS: MULTIVITAMINS 10 ML, THIAMINE 100 MG, FOLIC ACID 1 MG in SOD CHLORIDE 0.9% 1,000 ML IVPB SCH (12:00)
[2017-03-15] MEDS: morphine 2 MG INJ IV PRN (12:12)
--- NOTE | 2017-03-15 16:19 | PN ---
Date/Time of Note Date/Time of Note DATE: 03/15/17 TIME: 16:12 Assessment/Plan VTE Prophylaxis VTE Prophylaxis Intervention: contraindicated, SCD's Lines/Catheters IV Catheter Type (from Nrs): Saline Lock Assessment/Plan Assessment/Plan 1. Upper GI bleed - Patient reports dark stools prior to admission despite negative FOBT - EGD planned for today - On PPI drip 2. Anemia ? secondary to blood loss and iron deficiency - stable - s/p transfused 03/13/17 - iron supplements 3. History of pacemaker - stable 4. Bradycardia, questionable sick sinus - asymptomatic 5. Epigastric abdominal pain - EGD today 6. Alcohol abuse - seizure precaution - Ativan PRN 7. Fatty liver 8. Disposition - Awaiting EGD Subjective 24 Hr Interval Summary Free Text/Dictation Patient has swelling of RUE at site of previous IV insertion with erythema and warmth. Denies any episodes of hematemesis, nausea, vomiting, constipation, diarrhea, hematochezia, melena, or abdominal pain. Exam/Review of Systems Vital Signs Vitals Vital Signs Date Time Temp Pulse Resp B/P Pulse Ox O2 Delivery O2 Flow Rate FiO2 03/15/17 15:54 Nasal Cannula 03/15/17 12:26 79 03/15/17 11:49 99.1 16 122/71 98 Intake and Output 03/14/17 03/14/17 03/15/17 15:00 23:00 07:00 Intake Total 2220 ml 1203 ml Balance 2220 ml 1203 ml Exam General: Patient is laying in bed and answers questions appropriately Head: Normocephalic atraumatic Eyes: EOMI, pupils reactive to light Neck: Supple, nontender, midline Respiratory: Clear to auscultation bilaterally Cardiovascular: regular rate, no obvious murmurs Gastrointestinal:mildly tender to epigastric palpation, bowel sounds heard. Ext: moving all extremities Neurological: Moves all extremities spontaneously Skin: RUE erythema and swelling at antecubital fossa. pulses intact Results Result Diagram: 03/14/17 0642 03/14/17 0642 Results 24 hrs Laboratory Tests Test 03/15/17 05:58 Lab Scanned Report BLOOD TRANSFUSION Medications Medications Current Medications Ferrous Sulfate (Ferrous Sulfate (Ec)) 325 mg DAILY PO Last administered on t 08:46; Admin Dose 325 MG; Start 03/13/17 at 09:00 Folic Acid (Folic Acid) 1 mg DAILY PO Last administered on 03/14/17 08:46; Admin Dose 1 MG; Start 03/13/17 at 09:00 Lorazepam (Ativan) 1 mg Q6 PRN PO AGITATION/ANXIETY; Start 03/12/17 at 22:00 Multivitamins Therapeutic (Theragran) 1 tab DAILY PO Last administered on 03/14 08:46; Admin Dose 1 TAB; Start 03/13/17 at 09:00 Thiamine HCl (Vitamin B1) 100 mg DAILY PO Last administered on 03/14/17 08:46 ; Admin Dose 100 MG; Start 03/13/17 at 09:00 Ondansetron HCl (Zofran Inj) 4 mg Q6H PRN IV NAUSEA AND/OR VOMITING; Start at 22:00 Morphine Sulfate 2 mg 2 mg Q4H PRN IV PAIN Last administered on 03/15/17 12: 12; Admin Dose 2 MG; Start 03/12/17 at 22:00 Multivitamins/ Thiamine HCl/ Folic Acid/Sodium Chloride (Mvi Adult/ Vitamin B1/ Folic Acid/NS) 1,011.2 ml @ 125 mls/ hr DAILY@09 IVPB Last administered on 12:00; Admin Dose 125 MLS/HR; Start 03/13/17 at 09:00; Stop 03/15/17 at 22:00 Acetaminophen 650 mg 650 mg Q4H PRN PO PAIN AND OR ELEVATED TEMP Last administered on 03/13/17 08:12; Admin Dose 650 MG; Start 03/13/17 at 08:00 Pantoprazole/ Sodium Chloride (Protonix Iv/NS) 100 ml @ 10 mls/hr Q10H IV Last administered on 03/15/17 08:56; Admin Dose 10 MLS/HR; Start 03/13/17 at 10:00 Lorazepam (Ativan) 2 mg Q10MIN PRN IV seizure; Start 03/13/17 at 09:30 JOHN OCONNELL MD Mar 15, 2017 16:19
[2017-03-15] MEDS ORDERED: LIDOCAINE 2% (SDV) 5 ML INJ ONE (16:38)
[2017-03-15] MEDS ORDERED: PROPOFOL 40 ML ONE (16:38)
[2017-03-15] MEDS ORDERED: MIDAZOLAM 1 MG/ML 2 ML INJ ONE (16:38)
--- NOTE | 2017-03-15 17:52 | OPPN ---
Date/Time of Note Date/Time of Note DATE: 03/15/17 TIME: 17:49 Proc Note GI Procedure Date 03/15/17 Indication: other (GI bleeding/melena) Pre-procedure Diagnosis GI bleeding/melena Post-procedure Diagnosis Impression: Multiple shallow small 5-6 mm ulcerations in the antrum of the stomach. No stigmata recent bleeding. Benign endoscopic appearance. Rule out H. pylori infection. Biopsies obtained 1.5 cm deep clean based duodenal ulceration. Otherwise normal EGD Plan: Protonix 40 mg p.o. twice daily Carafate 1 g p.o. 4 times daily Advance diet as tolerated Monitor H&H and transfuse as necessary for hemoglobin less than 7.5 . Procedure Performed: Other (EGD plus biopsies) Surgeon YO SANCHEZ MD See signature line Quality Management Nurse none Anesthesia Type: MAC Anesthesiologist: ROB MUNOZ DO Tourniquet Time none EBL none Transfusion required none Biopsy 1: Gastric body and antrum/rule out H. pylori infection Grafts/Implants none Tubes/Drains none Complication(s) none Disposition: PACU Procedure Description Preoperative Diagnosis: After informed consent, with the patient/relatives understanding the procedure, its indications, potential risks and complications, including but not limited to : allergic reaction, bleeding, perforation or infection, and after all pertinent questions were answered to the patients satisfaction, the patient/ relatives signed witnessed informed consent. Following this, premedication was administered slowly IV push under careful cardiovascular and respiratory monitoring with pulse oximetry, automatic blood pressure, and collar starcher. Once the sedative effect was achieved the patient was place in the left lateral decubitus, the panendoscope was introduced and advanced under visual control. Careful examination of the upper gastrointestinal tract, both on insertion as well as withdrawal of the instrument disclosing the following findings: ESOPHAGUS: the mucosa of the entire esophagus was carefully examined and showed the following findings: the mucosa appears within normal limits. There is no evidence of esophagitis, varices, neoplasm, or stricture. No Hiatal Hernia identified. STOMACH: Upon entrance to the stomach air was insufflated, the gastric chahal distended normally. The mucosa of the fundus, body and antrum of the stomach was carefully examined both head-on and on retroflexion, and showed the following findings: There are multiple small 5 or 6 mm ulcerations in the antrum of the stomach. Benign endoscopic appearance. No stigmata recent bleeding. Biopsies were obtained to rule out H. pylori infection. Otherwise the mucosa appears within normal limits with no abnormalities. There is no evidence of neoplasm. PYLORUS: The pylorus was carefully examined and showed the following findings: the pylorus appears patent and within normal limits, with no evidence of gastric outlet obstruction. DUODENUM: The duodenal mucosa was carefully examined in the duodenal bulb as well as the second portion of the duodenum and showed the following findings: 1.5 cm deep cratered duodenal ulcer with no stigmata recent bleeding. Otherwise the mucosa appears unremarkable with no evidence of duodenitis or neoplasm. Copies To: CC: YO SANCHEZ MD, MORDO MD Mar 15, 2017 17:52
[2017-03-15] MEDS: PANTOPRAZOLE (EC) 40 MG TAB PO SCH (18:00)
[2017-03-15] MEDS ORDERED: ONDANSETRON 4 MG INJ IV PRN (18:30)
[2017-03-15] MEDS: SUCRALFATE 1 GM TAB PO SCH (21:39)
[2017-03-16] VITALS (8 sets, daily range): BP systolic 121–129; BP diastolic 64–80; PULSE 75–85; RESP 18
[2017-03-16] MEDS: PANTOPRAZOLE (EC) 40 MG TAB PO SCH (05:38)
[2017-03-16] MEDS: morphine 2 MG INJ IV PRN (07:50)
[2017-03-16] MEDS: THIAMINE 100 MG TAB PO SCH (08:39)
[2017-03-16] MEDS: MULTIVITAMINS THERAPEUTIC TAB PO SCH (08:39)
[2017-03-16] MEDS: SUCRALFATE 1 GM TAB PO SCH (08:39)
[2017-03-16] MEDS: FOLIC ACID 1 MG TAB PO SCH (08:39)
[2017-03-16] MEDS: FERROUS SULFATE (EC) 325 MG TAB PO SCH (08:39)
--- NOTE | 2017-03-16 10:52 | PN ---
Date/Time of Note Date/Time of Note DATE: 03/16/17 TIME: 10:47 Assessment/Plan VTE Prophylaxis VTE Prophylaxis Intervention: contraindicated, SCD's Lines/Catheters IV Catheter Type (from Nrsg): Saline Lock Assessment/Plan Assessment/Plan 1. Upper GI bleed 2/2 Multiple shallow small 5-6 mm ulcerations in the antrum of the stomach and 1.5 cm deep clean based duodenal ulceration seen on EGD - Patient feeling significantly better and able to tolerate PO intake - Currently on Protonix BID and Carafate 2. Anemia secondary to blood loss and iron deficiency - stable - s/p transfused 03/13/17 - iron supplements 3. History of pacemaker - stable 4. Bradycardia, questionable sick sinus - asymptomatic 5. Epigastric abdominal pain - resolved 6. Alcohol abuse - seizure precaution - Ativan PRN 7. Fatty liver 8. Disposition - Medically cleared for discharge home Subjective 24 Hr Interval Summary Free Text/Dictation Patient doing well and states abdominal pain has resolved. Able to tolerate PO intake this am and denies any dark tarry stool, BRBPR, nausea, vomiting, chest pain, or SOB. No acute overnight events. Exam/Review of Systems Vital Signs Vitals Vital Signs Date Time Temp Pulse Resp B/P Pulse Ox O2 Delivery O2 Flow Rate FiO2 03/16/17 08:12 99.0 75 18 129/80 95 03/15/17 18:20 Room Air Intake and Output 03/15/17 03/15/17 03/16/17 15:00 23:00 07:00 Intake Total 0 ml 400 ml Balance 0 ml 400 ml Exam General: Patient is laying in bed and answers questions appropriately Head: Normocephalic atraumatic Eyes: EOMI, pupils reactive to light Neck: Supple, nontender, midline Respiratory: Clear to auscultation bilaterally Cardiovascular: regular rate, no obvious murmurs Gastrointestinal:soft, nontender, nondistended, bowel sounds heard. no rebound or guarding Ext: moving all extremities Neurological: Moves all extremities spontaneously Skin: pulses intact Results Result Diagram: 03/14/1742 03/14/17641 Medications Medications Current Medications Ferrous Sulfate (Ferrous Sulfate (Ec)) 325 mg DAILY PO Last administered on t 08:39; Admin Dose 325 MG; Start 03/13/17 at 09:00 Folic Acid (Folic Acid) 1 mg DAILY PO Last administered on 03/16/17 08:39; Admin Dose 1 MG; Start 03/13/17 at 09:00 Lorazepam (Ativan) 1 mg Q6 PRN PO AGITATION/ANXIETY; Start 03/12/17 at 22:00 Multivitamins Therapeutic (Theragran) 1 tab DAILY PO Last administered on 03/16 08:39; Admin Dose 1 TAB; Start 03/13/17 at 09:00 Thiamine HCl (Vitamin B1) 100 mg DAILY PO Last administered on 03/16/17 08:39 ; Admin Dose 100 MG; Start 03/13/17 at 09:00 Ondansetron HCl (Zofran Inj) 4 mg Q6H PRN IV NAUSEA AND/OR VOMITING; Start at 22:00 Morphine Sulfate (morphine) 2 mg Q4H PRN IV PAIN Last administered on 07:50; Admin Dose 2 MG; Start 03/12/17 at 22:00 Acetaminophen (Tylenol Tab) 650 mg Q4H PRN PO PAIN AND OR ELEVATED TEMP Last administered on 03/13/17 08:12; Admin Dose 650 MG; Start 03/13/17 at 08:00 Lorazepam (Ativan) 2 mg Q10MIN PRN IV seizure; Start 03/13/17 at 09:30 Pantoprazole (Protonix Tab) 40 mg BID@06,18 PO Last administered on 03/16/17 05:38; Admin Dose 40 MG; Start 03/15/17 at 18:00 Sucralfate (Carafate) 1 gm QID PO Last administered on 03/16/17 08:39; Admin Dose 1 GM; Start 03/15/17 at 21:00 JOHN OCONNELL MD Mar 16, 2017 10:52
[2017-03-16] MEDS ORDERED: SUCR1TAB27 PO (10:56)
[2017-03-16] MEDS ORDERED: PANT40TA4 PO (10:56)
--- NOTE | 2017-03-16 11:02 | PDOCDIS ---
Discharge Instructions DIAGNOSIS Discharge Diagnosis 1. Upper GI bleed 2/2 Multiple shallow small 5-6 mm ulcerations in the antrum of the stomach and 1.5 cm deep clean based duodenal ulceration seen on EGD 2. Anemia secondary to blood loss and iron deficiency 3. History of pacemaker 4. Bradycardia, questionable sick sinus 5. Epigastric abdominal pain- resolved 6. Alcohol abuse 7. Fatty liver CONDITION Patient Condition: Good HOME CARE INSTRUCTIONS: Diet Instructions: Low Fat /Cholesterol ACTIVITY: Activity Restrictions: No Restrictions FOLLOW UP/APPOINTMENTS Follow-up Plan 1. Take Protonix twice daily for 8 weeks then decrease to daily (if still experiencing abdominal pain/discomfort can continue daily for another 8 weeks) then decrease to as needed 2. Take Carafate every 6 hours for 4 weeks and if symptoms continue, continue medication 3. Follow up with your primary care clinic 4. Avoid foods high in acid production 5. if symptoms return or worsen, return to ED REFERRALS Other Referrals SuchSyed garcia MD Specialty: Gastroenterology Office Address [address] [place] [address] Office SCHOOL/WORK RELEASE May return to School/Work with: No Restrictions JOHN OCONNELL MD Mar 16, 2017 11:02
--- NOTE | 2017-03-16 11:02 | DS ---
Date/Time of Note Date/Time of Note DATE: 03/16/17 TIME: 11:02 Discharge Summary Admission/Discharge Info Admit Date/Time Mar 12, 2017 at 21:00 Discharge Date/Time Discharge Diagnosis 1. Upper GI bleed 2/2 Multiple shallow small 5-6 mm ulcerations in the antrum of the stomach and 1.5 cm deep clean based duodenal ulceration seen on EGD 2. Anemia secondary to blood loss and iron deficiency 3. History of pacemaker 4. Bradycardia, questionable sick sinus 5. Epigastric abdominal pain- resolved 6. Alcohol abuse 7. Fatty liver Patient Condition: Good Consults GI- Dr. Lombardo Procedures EGD Hx of Present Illness This is a 52-year-old male with a history of bradycardia status post pacemaker, alcohol abuse, anemia, fatty liver who initially presented to an outside hospital for anemia. Patient was transferred to [facility] for insurance reasons. He had a lab work at a clinic which showed hemoglobin of 7.2. As such he was told to go to the ER. At the outside hospital his hemoglobin was found to be 8.3 and was given blood transfusions. He complains of generalized weakness and epigastric abdominal pain. Reported dark stool x 8 days Denied hematemesis or BRBPR. Patient was admitted here in August of this year after he was transferred from [facility] for anemia. At that time he was given blood transfusion and was discharged. Hospital Course Patient was admitted and GI was consulted for further evaluation. patient was started on PPI drip and clear liquid diet in anticipation for EGD. Patient was transfused only once during hospitalization and did not exhibit any radha bleeding. Patient was found to have multiple shallow small 5-6 mm ulcerations in the antrum of the stomach and 1.5 cm deep clean based duodenal ulceration seen on EGD. He was started on PPI BID and Carafate QID. Patients diet was advance and hemoglobin remained stable. Patient was discharged home with instructions to continue PPI and Carafate given findings of ulcers. Also instructed to refrain from consuming high acid producing foods as well as alcohol. Patient was in good condition upon discharge. Home Meds Active Scripts Sucralfate (Carafate) 1 Gm Tablet, 1 GM PO QID for 30 Days, #120 TAB Prov:JOHN OCONNELL MD 03/16/17 Pantoprazole* (Pantoprazole*) 40 Mg Tablet.dr 40 MG PO BID@06,18 for 30 Days, # 60 TAB 1 Refill Prov:JOHN OCONNELL MD 03/16/17 Ascorbic Acid* (Vitamin C*) 500 Mg Capsule.sa, 500 MG PO DAILY, #30 CAP Prov:CATHERINE PRICE MD 09/09/16 Ferrous Sulfate* (Ferrous Sulfate*) 325 Mg Tabec, 325 MG PO DAILY, #30 TAB Prov:CATHERINE PRICE MD 09/09/16 Lorazepam* (Lorazepam*) 1 Mg Tablet, 1 MG PO Q6 Y for AGITATION/ANXIETY, #20 TAB Prov:CATHERINE PRICE MD 09/09/16 [Thiamine] 100 MG TAB No Conflict Check, 100 MG PO DAILY for 30 Days, 2 Refills Prov:CATHERINE PRICE MD 09/09/16 Multivitamins* (Theragran*) 1 Tab Tab, 1 TAB PO DAILY for 30 Days, TAB 2 Refills Prov:CATHERINE PRICE MD 09/09/16 Folic Acid* (Folic Acid*) 1 Mg Tablet, 1 MG PO DAILY, #30 TAB 2 Refills Prov:CATHERINE PRICE MD 09/09/16 Discontinued Scripts Ondansetron Hcl* (Zofran*) 4 Mg Tab, 4 MG PO Q4H Y for NAUSEA AND OR VOMITING, # 20 TAB Prov:CATHERINE PRICE MD 09/09/16 Omeprazole* (Omeprazole*) 20 Mg Capsule.dr, 20 MG PO DAILY, #30 CAP Prov:CATHERINE PRICE MD 09/09/16 Chlordiazepoxide* (Chlordiazepoxide*) 25 Mg Capsule, 25 MG PO TID for 7 Days, CAP Prov:CATHERINE PRICE MD 09/09/16 Follow-up Plan 1. Take Protonix twice daily for 8 weeks then decrease to daily (if still experiencing abdominal pain/discomfort can continue daily for another 8 weeks) then decrease to as needed 2. Take Carafate every 6 hours for 4 weeks and if symptoms continue, continue medication 3. Follow up with your primary care clinic 4. Avoid foods high in acid production 5. if symptoms return or worsen, return to ED Primary Care Provider Not On Staff Doctor Time spent on discharge: > 30 minutes JOHN OCONNELL MD Mar 16, 2017 11:02
== END 2017-03-16 12:53 | disposition home or self-care (01) | DRG 811 ==
LOC: MS4 21:00
PROVIDERS: ADMIT Internal Medicine; ATTEND Internal Medicine
PROC: 30233N1 Transfusion of Nonautologous Red Blood Cells into Peripheral Vein, Percutaneous Approach (ICD-10-PCS; 2017-03-13)
PROC: 0DB68ZX Excision of Stomach, Via Natural or Artificial Opening Endoscopic, Diagnostic (ICD-10-PCS; principal; 2017-03-15 18:00)
DX: D50.0 Iron deficiency anemia secondary to blood loss (chronic) (principal); K25.4 Chronic or unspecified gastric ulcer with hemorrhage; K76.0 Fatty (change of) liver, not elsewhere classified; F10.10 Alcohol abuse, uncomplicated; R79.89 Other specified abnormal findings of blood chemistry; Z95.0 Presence of cardiac pacemaker; K26.9 Duodenal ulcer, unspecified as acute or chronic, without hemorrhage or perforation
CPT/HCPCS: 36430; 80053; 82270; 82728; 83540; 83735; 84100; 85025; 86704; 86706; 86708; 86803; 86850; 86900; 86901; 86920; 87040; 87081; 87340; 88305; 88312; C9113; J2250; J2270; J3411; J7030; J7042; P9016

== ENCOUNTER 2017-04-27 09:08 | Inpatient (IN) | payer BC ==
[~2017-04-27] VITALS: Ht 177.8 cm; Wt 103.9 kg
[~2017-04-27 09:08] MED LIST changes: -CHLO25CA9 PO; -OMEP20CA16 PO; -ONDA-43 PO; +PANT40TA4 PO; +SUCR1TAB27 PO
[2017-04-27] MEDS ORDERED: LORA0.5T PO (10:22)
[2017-04-27] MEDS ORDERED: CHLO25CA9 PO (10:22)
[2017-04-27] MEDS ORDERED: SUCR1TAB56 PO (10:22)
[2017-04-27 10:23] LABS: BASOPHIL # 0.1 10^3/ul (0.0-0.1); BASOPHILS % 1.1 % (0.0-2.0); EOSINOPHILS % 0.1 % (0.0-7.0); HEMATOCRIT 28.4 % (42.0-52.0); HEMOGLOBIN 8.6 g/dl (14.0-18.0); LYMPHOCYTES # 0.8 10^3/ul (0.8-2.9); LYMPHOCYTES % 10.2 % (15.0-51.0); MEAN CORPUSCULAR HEMOGLOBIN 24.4 pg (29.0-33.0); MEAN CORPUSCULAR HGB CONC 30.3 g/dl (32.0-37.0); MEAN CORPUSCULAR VOLUME 80.7 fl (82.0-101.0); MONOCYTE # 0.8 10^3/ul (0.3-0.9); MONOCYTES % 9.2 % (0.0-11.0); NEUTROPHIL # 6.5 10^3/ul (1.6-7.5); NEUTROPHILS % 79.2 % (39.0-77.0); PLATELET COUNT 436 10^3/UL (140-415); RED BLOOD COUNT 3.52 10^6/ul (4.70-6.10); RED CELL DISTRIBUTION WIDTH 17.8 % (11.5-14.5); WHITE BLOOD COUNT 8.2 10^3/ul (4.8-10.8)
[2017-04-27 10:26] LABS: ADD UMIC NO; UR ASCORBIC ACID NEGATIVE (NEGATIVE); UR BILIRUBIN (Dip) NEGATIVE (NEGATIVE); UR BLOOD (Dip) NEGATIVE (NEGATIVE); UR CLARITY CLEAR (CLEAR); UR COLOR STRAW (YELLOW); UR GLUCOSE (Dip) NEGATIVE (NEGATIVE); UR KETONES (Dip) NEGATIVE (NEGATIVE); UR LEUKOCYTE ESTERASE (Dip) NEGATIVE Leu/ul (NEGATIVE); UR NITRITE (Dip) NEGATIVE (NEGATIVE); UR SPECIFIC GRAVITY (Dip) 1.004 (1.003-1.030); UR TOTAL PROTEIN (Dip) NEGATIVE (NEGATIVE); UR UROBILINOGEN (Dip) NEGATIVE (NEGATIVE)
--- NOTE | 2017-04-27 10:30 | RADRPT ---
PROCEDURE: XR portable chest CLINICAL INDICATION: Sepsis TECHNIQUE: Portable upright chest radiograph COMPARISON: None available FINDINGS: Dual lead cardiac conduction device with one lead projected within the right atrium and the other le ad projected in the right ventricle. Slightly enlarged cardiac silhouette. The mediastinum and pulmo nary torey are otherwise unremarkable on this lordotic radiograph. Increased pulmonary vascular distension and slight indistinctness of bilateral lower lung zone pulmo nary vessels is most compatible with interstitial edema. The visualized pleural surfaces are unremar kable. IMPRESSION: 1. Findings most compatible with interstitial edema and slightly enlarged cardiac silhouette Compare to prior corresponding imaging studies. RPTAT: TT Physician Ashanti Date Time Electronically viewed and signed by Physician Ashanti on 04/27/2017 10:29 JS/
[2017-04-27 10:42] LABS: ALBUMIN 3.9 g/dl (3.3-4.9); ALBUMIN/GLOBULIN RATIO 0.92; BILIRUBIN,INDIRECT 0.6 mg/dl (0-1.1); BILIRUBIN,TOTAL 0.6 mg/dl (0.2-1.3); CALCIUM 9.7 mg/dl (8.4-10.2); CREATININE 0.63 mg/dl (0.61-1.24); POTASSIUM 3.6 mmol/L (3.5-5.1); TOTAL PROTEIN 8.1 g/dl (6.1-8.1)
[2017-04-27 10:44] LABS: INR 1.06; PROTIME 13.8 Sec (12.2-14.2); PT RATIO 1.1
[2017-04-27] MEDS ORDERED: ONDANSETRON 4 MG INJ IV STA (10:52)
[2017-04-27 10:53] LABS: TROPONIN-I 0.017 ng/ml (0.00-0.12)
[2017-04-27] MEDS ORDERED: LORAZEPAM 2 MG INJ IV ONE ×2 (11:00→13:00)
[2017-04-27] MEDS ORDERED: FUROSEMIDE 40 MG INJ IV ONE (11:00)
[2017-04-27] MEDS ORDERED: CEFEPIME 2GM/50 ML (PMX) 50 ML IVPB STA (11:12)
[2017-04-27] MEDS ORDERED: VANCOMYCIN 1 GM (PMX) 250 ML IVPB ONE (11:30)
[2017-04-27] MEDS ORDERED: IOHEXOL 100 ML ONE (12:08)
[2017-04-27] MEDS ORDERED: IOHEXOL 350MG/ML 50 ML BTL ONE (12:08)
[2017-04-27] MEDS ORDERED: SOD CHLORIDE 0.9% 100 ML ONE (12:08)
[2017-04-27] MEDS ORDERED: SOD CHLORIDE 0.9% 1,000 ML IV STA (12:18)
--- NOTE | 2017-04-27 12:28 | RADRPT ---
PROCEDURE: CT Chest Angiogram with contrast. CLINICAL INDICATION: Shortness of breath TECHNIQUE: CT scan of the chest with contrast was performed on a multidetector high-resolution CT scanner. The patient was scanned following the uncomplicated intravenous administration of 100 cc o f Isovue 300 contrast. Coronal and sagittal reformatted images were obtained from the axial source images. Additional 3D volumetric renderings were created. Images were reviewed on a [employer] PACS workstation. The total exam CTDI equals 31/18mGy and the total exam DLP equals 807mGy-cm. One or more of the following dose reduction techniques were used: Automated exposure control, Adjustmen t of the mA and/or kV according to patient size, and/or use of iterative reconstruction technique. D ICOM images are available. COMPARISON: Correlation chest x-ray today. FINDINGS: Technically adequate exam for the evaluation of the pulmonary arteries to the segmental level. No in traluminal filling defects are seen. Cardiac device leads in the right atrium right ventricle. Cardiomegaly. Trace aortic atherosclerosis . No focal consolidation or suspicious pulmonary mass. A few small mediastinal lymph nodes are seen which are nonspecific. No significant pleural or pericardial effusion. Central hepatic cyst. Degenerative changes to the thoracic spine are seen. IMPRESSION: No evidence of pulmonary embolus. Cardiomegaly. Trace aortic atherosclerosis. RPTAT: AA .Brandyn August MD, MD Date Time Electronically viewed and signed by .Brandyn August MD, on 04/27/2017 12:27 .T/
[2017-04-27] MEDS ORDERED: SOD CHLORIDE 0.9% 1,000 ML IV SCH (12:53)
[2017-04-27] MEDS ORDERED: ACETAMINOPHEN 325 MG TAB PO PRN (13:00)
[2017-04-27] MEDS ORDERED: ONDANSETRON 4 MG INJ IV PRN ×2 (13:00→14:00)
--- NOTE | 2017-04-27 13:08 | ERD ---
ER Documentation Chief Complaint Chief Complaint has SOB bod ache has hx of a pacemaker legs look edemadous HPI This is a 52-year-old male presents to the emergency room for evaluation of shortness of breath, body aches, and shaking with shortness of breath. The patient states that the symptoms have been present for 2 days duration. He states that he does have a history of prior alcoholism, states his last alcoholic drink was approximately 7 hours ago. This patient states that he is extremely short of breath, is worse when he lays flat. He states that he is feeling nauseous and has been shaking. The patient states that he has ran out of his antianxiety medication and came to the ER for evaluation of his symptoms. He Ativan does relieve his symptoms and states that he feels like he is in alcohol withdrawal at this time. ROS All systems reviewed and are negative except as per history of present illness. Medications Home Meds Reported Medications Sucralfate* (Carafate*) 1 Gm Tab, 1 GM PO Q6, TAB 04/27/17 Lorazepam* (Lorazepam*) 0.5 Mg Tablet, 0.5 MG PO HS Y for ANXIETY, TAB 04/27/17 Chlordiazepoxide* (Chlordiazepoxide*) 25 Mg Capsule, 25 MG PO DAILY Y for DRINKING WITHRAWLS, CAP 04/27/17 Discontinued Scripts Sucralfate (Carafate) 1 Gm Tablet, 1 GM PO QID for 30 Days, #120 TAB Prov:JOHN OCONNELL MD 03/16/17 Pantoprazole* (Pantoprazole*) 40 Mg Tablet.dr, 40 MG PO BID@06,18 for 30 Days, # 60 TAB 1 Refill Prov:JOHN OCONNELL MD 03/16/17 Ascorbic Acid* (Vitamin C*) 500 Mg Capsule.sa, 500 MG PO DAILY, #30 CAP Prov:CATHERINE PRICE MD 09/09/16 Ferrous Sulfate* (Ferrous Sulfate*) 325 Mg Tabec, 325 MG PO DAILY, #30 TAB Prov:CATHERINE PRICE MD 09/09/16 Lorazepam* (Lorazepam*) 1 Mg Tablet, 1 MG PO Q6 Y for AGITATION/ANXIETY, #20 TAB Prov:CATHERINE PRICE MD 09/09/16 [Thiamine] 100 MG TAB No Conflict Check, 100 MG PO DAILY for 30 Days, 2 Refills Prov:CATHERINE PRICE MD 09/09/16 Multivitamins* (Theragran*) 1 Tab Tab, 1 TAB PO DAILY for 30 Days, TAB 2 Refills Prov:CATHERINE PRICE MD 09/09/16 Folic Acid* (Folic Acid*) 1 Mg Tablet, 1 MG PO DAILY, #30 TAB 2 Refills Prov:CATHERINE PRICE MD 09/09/16 Allergies Allergies: Coded Allergies: No Known Drug Allergies (Verified Allergy, Unknown, 03/12/17) PMhx/Soc History of Surgery: Yes (PACEMAKER 2002) Anesthesia Reaction: No Hx Neurological Disorder: No Hx Respiratory Disorders: Yes (ASTHMA) Hx Cardiac Disorders: Yes (PACEMAKER 2002) Hx Psychiatric Problems: Yes (ANXIETY) Hx Miscellaneous Medical Probl: No Hx Alcohol Use: Yes (vodka) Hx Substance Use: No Hx Tobacco Use: No Smoking Status: Never smoker Physical Exam Vitals Vital Signs Date Time Temp Pulse Resp B/P Pulse Ox O2 Delivery O2 Flow Rate FiO2 04/27/17 12:58 106 18 110/99 95 Nasal Cannula 2.0 04/27/17 10:36 120 100 40 04/27/17 09:41 Nasal Cannula 2 04/27/17 09:39 Nasal Cannula 2.0 04/27/17 09:23 99.0 104 24 142/72 96 Physical Exam INITIAL VITAL SIGNS: Reviewed by me GENERAL: The patient is well developed, mild respiratory distress tachypneic HEENT: Pupils equal, round, and reactive to light. EOMI. There is no scleral icterus. NECK: C-spine is soft and supple, there is no meningismus. There is no cervical lymphadenopathy. LUNGS: Clear to auscultation bilaterally. There are no rales, wheezes or rhonchi. HEART: Tachycardic no murmurs, clicks, rubs or gallops. ABDOMEN: Soft, non-tender, non-distended. There are bowel sounds in all four quadrants. No rebound or guarding. EXTREMITIES: Was pitting edema to bilateral lower extremities. No focal swelling or erythema. NEUROLOGICAL: The patient moves all four extremities with 5/5 strength. Cranial nerves II - XII are intact. Normal gait. Alert and oriented SKIN: There is no apparent rash or petechiae. HEME/LYMPHATIC: There is no evidence of excessive bruising or lymphedema. PSYCHIATRIC: The patient does do to be moderately anxious Result Diagram: 04/27/17 1000 04/27/17 1000 Results 24 hrs Laboratory Tests Test 04/27/17 10:00 04/27/17 10:05 White Blood Count 8.210^3/ul Red Blood Count 3.5210^6/ul Hemoglobin 8.6g/dl Hematocrit 28.4% Mean Corpuscular Volume 80.7fl Mean Corpuscular Hemoglobin 24.4pg Mean Corpuscular Hemoglobin Concent 30.3g/dl Red Cell Distribution Width 17.8% Platelet Count 08269^3/UL Mean Platelet Volume 9.0fl Neutrophils % 79.2% Lymphocytes % 10.2% Monocytes % 9.2% Eosinophils % 0.1% Basophils % 1.1% Nucleated Red Blood Cells % 0.0/100WBC Neutrophils # 6.510^3/ul Lymphocytes # 0.810^3/ul Monocytes # 0.810^3/ul Eosinophils # 0.010^3/ul Basophils # 0.110^3/ul Nucleated Red Blood Cells # 0.010^3/ul Prothrombin Time 13.8Sec Prothrombin Time Ratio 1.1 INR International Normalized Ratio 1.06 Activated Partial Thromboplast Time 40.0Sec Sodium Level 147mmol/L Potassium Level 3.6mmol/L Chloride Level 108mmol/L Carbon Dioxide Level 22mmol/L Anion Gap 21 Blood Urea Nitrogen 6mg/dl Creatinine 0.63mg/dl Glucose Level 115mg/dl Lactic Acid Level 6.7mmol/L Calcium Level 9.7mg/dl Total Bilirubin 0.6mg/dl Direct Bilirubin 0.00mg/dl Indirect Bilirubin 0.6mg/dl Aspartate Amino Transf (AST/SGOT) 154IU/L Alanine Aminotransferase (ALT/SGPT) 72IU/L Alkaline Phosphatase 263IU/L Troponin I 0.017ng/ml B-Type Natriuretic Peptide 582PG/ML Total Protein 8.1g/dl Albumin 3.9g/dl Globulin 4.20g/dl Albumin/Globulin Ratio 0.92 Urine Color STRAW Urine Clarity CLEAR Urine pH 7.0 Urine Specific [place] 1.004 Urine Ketones NEGATIVEmg/dL Urine Nitrite NEGATIVEmg/dL Urine Bilirubin NEGATIVEmg/dL Urine Urobilinogen NEGATIVEmg/dL Urine Leukocyte Esterase NEGATIVELeu/ul Urine Hemoglobin NEGATIVEmg/dL Urine Glucose NEGATIVEmg/dL Urine Total Protein NEGATIVEmg/dl Current Medications Medications (Trade) Dose Ordered Sig/Michaelle Route PRN Reason Start Time Stop Time Status Last Admin Dose Admin Ondansetron HCl (Zofran Inj) 4 mg ONCE STAT IV 04/27/17 10:52 04/27/17 10:54 DC 04/27/17 11:03 Lorazepam (Ativan) 1 mg ONCE ONCE IV 04/27/17 11:00 04/27/17 11:01 DC 04/27/17 11:03 Furosemide 40 mg 40 mg ONCE ONCE IV 04/27/17 11:00 04/27/17 11:02 DC 04/27/17 11:15 Cefepime HCl 50 ml @ 100 mls/hr ONCE STAT IVPB 04/27/17 11:12 04/27/17 11:41 DC 04/27/17 11:34 Vancomycin HCl (Vancocin) 250 ml @ 125 mls/hr ONCE ONCE IVPB 04/27/17 11:30 04/27/17 13:29 04/27/17 12:50 IV Flush 10 ml 10 ml STK-MED ONCE .ROUTE 04/27/17 12:08 04/27/17 12:09 DC 04/27/17 12:18 Sodium Chloride 100 ml @ ud STK-MED ONCE .ROUTE 04/27/17 12:08 04/27/17 12:09 DC 04/27/17 12:22 Iohexol (Omnipaque) 100 ml @ ud STK-MED ONCE .ROUTE 04/27/17 12:08 04/27/17 12:09 DC 04/27/17 12:19 Iohexol 50 ml 50 ml STK-MED ONCE .ROUTE 04/27/17 12:08 04/27/17 12:09 DC 04/27/17 12:22 Sodium Chloride (NS) 1,000 ml @ 1,000 mls/hr Q1H STAT IV 04/27/17 12:18 04/27/17 13:17 04/27/17 12:44 Lorazepam 2 mg 2 mg ONCE ONCE IV 04/27/17 13:00 04/27/17 13:01 DC 04/27/17 12:50 Sodium Chloride (NS) 1,000 ml @ 80 mls/hr [id number] IV 04/27/17 12:53 04/28/17 01:22 Ondansetron HCl (Zofran Inj) 4 mg ER BRIDGE PRN IV NAUSEA AND/OR VOMITING 04/27/17 13:00 04/28/17 12:59 Acetaminophen (Tylenol Tab) 650 mg ER BRIDGE PRN PO MILD PAIN/FEVER 04/27/17 13:00 04/28/17 12:59 Procedures/MDM EKG: Rate/Rhythm: Sinus tachycardia QRS, ST, T-waves: [No changes consistent w/ acute ischemia] Impression: [No evidence of ischemia or arrhythmia] Chest X-ray 1V Interpreted by me: Soft Tissue: No acute abnormalities Bones: No acute abnormalities Mediastinum/Cardiac Silhouette/Lungs: [No acute abnormalities] CT angiography chest: No evidence of pulmonary embolus. Cardiomegaly. Trace aortic atherosclerosis. This 52-year-old male presents to the ER for evaluation of respiratory distress. When I evaluated him he did have a pulse ox is 94% on room air however he was tachypnea, tachycardic and diaphoretic. This patient was placed on supplemental oxygen however he did not improve. The patient was subsequently placed on a BiPAP. After being placed on the BiPAP the patient did vomit and had the BiPAP removed. This patient underwent a CT angiogram the chest to rule out pulmonary embolism which was negative. This patient was given Zofran and multiple doses of Ativan with moderate resolution of his symptoms. This patient did have a septic workup started in the emergency room because he was tachycardic and his lactic acid was greater than 6. I do believe that this elevation in lactic acid is likely secondary to dehydration or tourniquet on the arm is supposed to infection. The patient was not given 30 cc/kg of normal saline given the fact that he does have signs of edema on my examination. He was given 1 L fluids and was started on vancomycin and cefepime. His heart rate has improved and he will be placed on telemetry floor under the care of panel physician Critical Care: Excluding all billable procedures Time: 36 minutes Treatments/Evaluations: Close monitoring and treatment of unstable vital signs, cardiorespiratory, and neurologic status, while maintaining tight balance of fluid, respiratory, and cardiac interventions. Departure Diagnosis: Primary Impression: Acute respiratory distress Additional Impressions: Alcohol withdrawal Microcytic anemia Transaminitis Condition: ANAND Uriarte DO Apr 27, 2017 13:08
[2017-04-27] MEDS ORDERED: LEVALBUTEROL (NEB) 0.63 MG/3 ML AMP HHN PRN (14:00)
[2017-04-27] MEDS ORDERED: NACL 0.9% 3 ML SYG IV SCH (14:00)
--- NOTE | 2017-04-27 14:01 | HP ---
Date/Time of Note Date/Time of Note DATE: 04/27/17 TIME: 14:00 Assessment/Plan VTE Prophylaxis VTE Prophylaxis Intervention: SCD's Assessment/Plan Chief Complaint/Hosp Course 1. Acute respiratory failure. Hypoxic. Etiology unclear. The patient has a prior history of asthma. However, the patient was not taking any inhaled bronchodilators at home. The patient will be maintained on inhaled bronchodilators. The patient will be provided with supplemental oxygen. 2. Systemic inflammatory response syndrome with sinus tachycardia, tachypnea, and lactic acidosis. Etiology unclear. The patient got empiric antibiotics in the emergency room. Pancultures pending. The patient will be continued on empiric antibiotics. 3. Alcoholism. The patient will be continued on tapering dose of Librium along with as needed IV benzodiazepines for any underlying alcohol withdrawal delirium. The patient will be maintained on daily vitamin supplements. 4. Peptic ulcer disease. The patient recently had a esophagogastroduodenoscopy done on 03/15/2017 that showed multiple shallow ulcerations in the antrum of the stomach with a 1.5 cm deep clean based duodenal ulceration. The patient will be continued on proton pump inhibitors and mucosal barrier protectants. 5. Anemia. Microcytic and hypochromic. The patient had evidence of iron deficiency on iron levels done in February 2017. The patient will be maintained on iron supplements. 6. Transaminitis without hyperbilirubinemia. Most probably secondary to underlying alcoholism. Hepatotoxic drugs will be avoided. Will trend LFTs. Plan: The patient will be admitted to inpatient telemetry floor. The patient will be started on a regular diet. The patient will be started on DVT prophylaxis and gastrointestinal prophylaxis. The patient will remain a full code. Activities will be with assist. The rest of the patient's management will be based on the clinical course and the results of diagnostic studies. Based on the patient's clinical presentation, he most probably requires at least one midnight's stay for further management and evaluation of his clinical presentation. The case and management of this patient was fully discussed with Dr. Mendenhall. Problems: HPI/ROS Admit Date/Time Admit Date/Time Hx of Present Illness Reason for admission. Dyspnea, body aches, shakiness, etc. for the past 1 week. This is a 52-year-old male patient with past medical history of asthma, EtOH abuse, anxiety disorder, peptic ulcer disease, fatty liver, and permanent pacemaker placement who came to the emergency room with chief complaint of dyspnea, bilateral lower extremity edema, body aches, and shaking that has been going on for the past 1 week. The patient denied any fevers or chills. The patient verbalized associated nausea. The patient denied any chest pain. The patient denied any abdominal pain. The patient continues to drink on a daily basis. The patient's last drink was approximately 7 hours prior to the patient' s hospital visit. In the emergency room, the patient was initially placed on BiPAP therapy. The patient did vomit after BiPAP therapy was initiated. Therefore, the patient's BiPAP was removed. The patient underwent a CT angiogram of the chest that was negative for any pulmonary embolism. The patient was given Ativan in multiple doses with improvement the patient's symptoms. The patient was also noticed to have lactic acidosis and sinus tachycardia. The patient was given empiric antibiotics for any underlying infectious process. The patient remained afebrile. The patient was also given a single dose of IV Lasix in the emergency room. ROS Constitutional: chills Eyes: no complaints ENT: no complaints Respiratory: shortness of breath Cardiovascular: edema Gastrointestinal: nausea Genitourinary: no complaints Musculoskeletal: back pain, bone/joint pain Skin: no complaints Neurologic: other (Generalized weakness.) Endocrine: no complaints Lymphatic: no complaints Psychological: anxiety Immunologic: no complaints PMH/Family/Social Past Medical History Medical History: peptic ulcer disease, other (Asthma, Etoh abuse, fatty liver.) Past Surgical History Past Surgical Hx: other (Pacemaker placement) Social History He lives at home with his mother. Alcohol Use: heavy Smoking Status: Never smoker Drug Use: none Exam/Review of Systems Vital Signs Vitals Vital Signs Date Time Temp Pulse Resp B/P Pulse Ox O2 Delivery O2 Flow Rate FiO2 04/27/17 12:58 106 18 110/99 95 Nasal Cannula 2.0 04/27/17 10:36 40 04/27/17 09:23 99.0 Exam Exam General: Adequately build 52 year-old male sitting in bed in no apparent distress. HEENT: Normocephalic, atraumatic. Eyes: Anicteric sclerae, conjunctivae clear. ENT: Nasal septum midline, oral mucosa moist. Neck supple, no JVD noticed. Respiratory: Bilaterally diminished breath sounds. No use of accessory muscles of respiration. Coarse breath sounds. Cardiovascular: S1, S2 heard. Regular rate and rhythm. Abdomen: Soft, nontender, and nondistended. Bowel sounds positive in all 4 quadrants. Genitourinary: Deferred. Extremities: No cyanosis, no clubbing. Bilateral lower extremity 2-3+ pitting edema. Peripheral pulses palpable. Neurologic: Cranial nerves II through XII grossly intact. The patient is awake, alert, and oriented. Skin: Normal skin turgor. No skin rashes. Labs Result Diagram: 04/27/17 1000 04/27/17 1000 Medications Medications Current Medications Sodium Chloride (NS) 1,000 ml @ 80 mls/hr [id number] IV ; Start 04/27/17 at 12:53 ; Stop 04/28/17 at 01:22 Procedures Procedures CTA Chest IMPRESSION: No evidence of pulmonary embolus. Cardiomegaly. Trace aortic atherosclerosis. 12-Lead EKG Sinus tachycardia. CXR IMPRESSION: 1. Findings most compatible with interstitial edema and slightly enlarged cardiac silhouette IMTIAZ NEWELL NP Apr 27, 2017 14:01
[2017-04-27] MEDS: LEVALBUTEROL (NEB) 0.63 MG/3 ML AMP HHN SCH ×2 (14:45→20:06)
[2017-04-27 14:48] LABS: BARBITURATES Negative (NEGATIVE); BENZODIAZEPINES Positive (NEGATIVE); CANNABINOIDS Negative (NEGATIVE); COCAINE Negative (NEGATIVE); OPIATES Negative (NEGATIVE)
[2017-04-27] MEDS: CEFTRIAXONE 1 GM/50 ML (PMX) 50 ML IVPB SCH (15:00)
--- NOTE | 2017-04-27 16:26 | RADRPT ---
Echocardiogram Report Patient Name: BILLIE SLAUGHTER Gender: Male Date: 1965 Study Date: 27-Apr-2017 Mechanics Supervisor: [facility] Location: [facility] Ref. Physician: IMTIAZ NEWELL Quality: Adequate Procedures: Transthoracic echocardiogram with complete 2D, M-Mode, and doppler examination. Indications: Evaluate Left Ventricular function. 2D/M Mode Doppler Measurement Value Normal Ranges Measurement Value Normal Ranges LVIDd 2D 5.4 3.5 - 5.6 cm AV Peak Luis 2.0 m/sec LVIDs 2D 3.3 2.1 - 4.1 cm AV Peak PG 15.4 mmHg LVPWd 2D 1.3 0.6 - 1.1 cm LVOT Peak Luis 1.6 m/sec IVSd 2D 1.3 0.6 - 1.1 cm LVOT Peak PG 10.2 mmHg AoR Diam 2D 2.9 2.0 - 3.7 cm MV E Peak Luis 1.3 m/sec EDV 2D 142.9 cm3 MV A Peak Luis 1.3 m/sec ESV 2D 37.3 cm3 MV E/A 1.0 LA Dimen 2D 4.6 2.3 - 4.0 cm MV Decel Time 153 msec MV Decel [place] 9 MV E/A 1.0 TR Peak Luis 3.7 m/sec TR Peak PG 54.0 mmHg RVSP 57.0 mmHg Findings Left Ventricle: Normal left ventricular systolic function. Normal left ventricular cavity size. Mild concentric left ventricular hypertrophy. Ejection fraction is visually estimated at 65 %. Tissue Doppler/Mitral Doppler indices are consistent with impaired relaxation (Stage I diastolic dysfunction). Right Ventricle: Normal right ventricular size. Normal right ventricular systolic function. Linear artifact in right ventricle suggestive of catheter, pacer lead, or ICD lead. Left Atrium: There is mild enlargement of left atrium. Right Atrium: The right atrium is normal in size. Mitral Valve: Normal appearance and function of the mitral valve with trace physiologic regurgitation. Aortic Valve: Normal appearance of the aortic valve. No significant aortic stenosis or insufficiency. Tricuspid Valve: Normal appearance of the tricuspid valve. Estimated peak PA systolic pressure 57 mmHg. There is mild tricuspid regurgitation. Pulmonic Valve: Normal pulmonic valve appearance. There is trace pulmonic regurgitation. Pericardium: Normal pericardium with no significant pericardial effusion. Aorta: Normal aortic root. IVC: Normal size and normal respiratory collapse consistent with normal right atrial pressure. Conclusions 1.Normal left ventricular systolic function. Normal left ventricular cavity size. Mild concentric left ventricular hypertrophy. Ejection fraction is visually estimated at 65 %. Tissue Doppler/Mitral Doppler indices are consistent with impaired relaxation (Stage I diastolic dysfunction). 2.Normal right ventricular size. Normal right ventricular systolic function. Linear artifact in right ventricle suggestive of catheter, pacer lead, or ICD lead. 3.There is mild enlargement of left atrium. 4.The right atrium is normal in size. 5.Estimated peak PA systolic pressure 57 mmHg. There is mild tricuspid regurgitation. 6.No significant valvular stenosis or regurgitation seen of remaining visualized valves. 7.Normal pericardium with no significant pericardial effusion. Electronically Signed By: Ethan Holland 27-Apr-2017 16:25:09 -0800 Patient Name: BILLIE SLAUGHTER Study Date: 27-Apr-2017 [id number]
[2017-04-27 17:15] LABS: TROPONIN-I 0.018 ng/ml (0.00-0.12)
[2017-04-27 17:22] LABS: CK-MB 2.35 ng/ml (0.0-2.4)
[2017-04-27 18:45] VITALS: TEMP 99.4
[2017-04-27] MEDS: morphine 2 MG INJ IV PRN (19:35)
[2017-04-27] MEDS: PANTOPRAZOLE (EC) 40 MG TAB PO SCH (19:35)
[2017-04-27] MEDS: LORAZEPAM 2 MG INJ IV PRN (19:35)
[2017-04-27 19:55] VITALS: PULSE 95
[2017-04-27 20:00] VITALS: Ht 177.8 cm; Wt 103.9 kg
[2017-04-27 20:12] VITALS: PULSE 95
[2017-04-27 20:25] VITALS: BP 137/85; RESP 18
[2017-04-27] MEDS: CHLORDIAZEPOXIDE 25 MG CAP PO SCH (20:32)
[2017-04-27] MEDS: SUCRALFATE 1 GM TAB PO SCH (20:33)
[2017-04-28] VITALS (12 sets, daily range): BP systolic 126–155; BP diastolic 62–81; PULSE 82–95; RESP 16–18
[2017-04-28] MEDS: FERROUS FUMARATE (SR) TAB PO SCH ×3 (00:25→20:20)
[2017-04-28] MEDS: morphine 2 MG INJ IV PRN ×5 (00:28→20:20)
[2017-04-28] MEDS: LEVALBUTEROL (NEB) 0.63 MG/3 ML AMP HHN SCH ×4 (01:17→20:04)
[2017-04-28] MEDS: PANTOPRAZOLE (EC) 40 MG TAB PO SCH ×2 (05:44→18:24)
[2017-04-28 09:05] LABS: BASOPHIL # 0.2 10^3/ul (0.0-0.1); BASOPHILS % 1.7 % (0.0-2.0); EOSINOPHILS # 0.3 10^3/ul (0.0-0.5); EOSINOPHILS % 3.8 % (0.0-7.0); HEMATOCRIT 27.9 % (42.0-52.0); HEMOGLOBIN 8.4 g/dl (14.0-18.0); LYMPHOCYTES # 1.4 10^3/ul (0.8-2.9); MEAN CORPUSCULAR HEMOGLOBIN 24.5 pg (29.0-33.0); MEAN CORPUSCULAR HGB CONC 30.1 g/dl (32.0-37.0); MEAN CORPUSCULAR VOLUME 81.3 fl (82.0-101.0); MEAN PLATELET VOLUME 9.6 fl (7.4-10.4); MONOCYTE # 0.9 10^3/ul (0.3-0.9); MONOCYTES % 10.1 % (0.0-11.0); NEUTROPHIL # 5.9 10^3/ul (1.6-7.5); NEUTROPHILS % 68.2 % (39.0-77.0); PLATELET COUNT 424 10^3/UL (140-415); RED BLOOD COUNT 3.43 10^6/ul (4.70-6.10); RED CELL DISTRIBUTION WIDTH 18.2 % (11.5-14.5); WHITE BLOOD COUNT 8.7 10^3/ul (4.8-10.8)
[2017-04-28 09:11] LABS: ALBUMIN 3.4 g/dl (3.3-4.9); ALBUMIN/GLOBULIN RATIO 0.89; BILIRUBIN,INDIRECT 0.8 mg/dl (0-1.1); BILIRUBIN,TOTAL 0.8 mg/dl (0.2-1.3); CALCIUM 9.4 mg/dl (8.4-10.2); CREATININE 0.72 mg/dl (0.61-1.24); POTASSIUM 3.7 mmol/L (3.5-5.1); TOTAL PROTEIN 7.2 g/dl (6.1-8.1)
[2017-04-28 09:22] LABS: CREATINE KINASE 124 IU/L (23-200)
[2017-04-28 09:36] LABS: CK-MB 1.77 ng/ml (0.0-2.4); TROPONIN-I < 0.012 ng/ml (0.00-0.12)
[2017-04-28] MEDS: CHLORDIAZEPOXIDE 25 MG CAP PO SCH ×3 (09:43→20:20)
[2017-04-28] MEDS: THIAMINE 100 MG TAB PO SCH (09:44)
[2017-04-28] MEDS: SUCRALFATE 1 GM TAB PO SCH ×4 (09:44→20:20)
[2017-04-28] MEDS: FOLIC ACID 1 MG TAB PO SCH (09:44)
[2017-04-28 10:20] LABS: MAGNESIUM 1.8 mg/dl (1.7-2.5); PHOSPHORUS 3.4 mg/dl (2.5-4.9)
[2017-04-28] MEDS ORDERED: FUROSEMIDE 20 MG INJ IV ONE (10:30)
--- NOTE | 2017-04-28 10:37 | PN ---
Date/Time of Note Date/Time of Note DATE: 04/28/17 TIME: 10:34 Assessment/Plan VTE Prophylaxis VTE Prophylaxis Intervention: SCD's Lines/Catheters IV Catheter Type (from [facility]): Peripheral IV Urinary Cath still in place: No Assessment/Plan Chief Complaint/Hosp Course 1. Acute respiratory failure. Hypoxic. -Continue inhaled bronchodilators. -Spot diuretics. 2. Systemic inflammatory response syndrome with sinus tachycardia, tachypnea, and lactic acidosis. Etiology unclear. -Empiric antibiotics. -Discontinue antibiotics if cultures are negative. 3. Diastolic heart failure. -Spot diuretics. -Cardiology evaluation. 4. Status post permanent pacemaker. -Cardiology evaluation. 5. Pulmonary hypertension. PA systolic pressure of 57 mmHg as per 2D echocardiogram. Etiology unclear. -Continue supplemental oxygen. 6. Alcoholism. -Continue tapering dose of Librium. -Continue multivitamins. 7. Peptic ulcer disease. -Continue proton pump inhibitors and Carafate. 8. Anemia. Microcytic and hypochromic. Iron deficiency. -Continue iron supplements. 9. Transaminitis without hyperbilirubinemia. -Trend LFTs. 10. Fluids, electrolytes, and nutrition. -Regular diet. 11. DVT prophylaxis. -Bilateral SCDs. 12. Plan. -Continue empiric antibiotics. -Continue supplemental oxygen and inhaled bronchodilators. -Obtain cardiology evaluation. -Continue physical therapy. The patient was seen in collaboration with Dr. Mendenhall. Problems: Subjective 24 Hr Interval Summary Free Text/Dictation Feeling better. Exam/Review of Systems Vital Signs Vitals Vital Signs Date Time Temp Pulse Resp B/P Pulse Ox O2 Delivery O2 Flow Rate FiO2 04/28/17 08:16 88 04/28/17 08:03 98.9 17 155/81 95 04/28/17 07:51 Nasal Cannula 2.0 04/27/17 10:36 40 Intake and Output 04/27/17 04/27/17 04/28/17 15:00 23:00 07:00 Intake Total 650 ml Output Total 800 ml 550 ml Balance -800 ml 100 ml Exam General: Adequately build 52 year-old male sitting in bed in no apparent distress. HEENT: Normocephalic, atraumatic. Eyes: Anicteric sclerae, conjunctivae clear. ENT: Nasal septum midline, oral mucosa moist. Neck supple, no JVD noticed. Respiratory: Bilaterally diminished breath sounds. No use of accessory muscles of respiration. Coarse breath sounds. Cardiovascular: S1, S2 heard. Regular rate and rhythm. Abdomen: Soft, nontender, and nondistended. Bowel sounds positive in all 4 quadrants. Genitourinary: Deferred. Extremities: No cyanosis, no clubbing. Bilateral lower extremity 2-3+ pitting edema. Peripheral pulses palpable. Neurologic: Cranial nerves II through XII grossly intact. The patient is awake, alert, and oriented. Skin: Normal skin turgor. No skin rashes. Results Result Diagram: 04/28/17 0743 04/28/17 0742 Results 24 hrs Laboratory Tests Test 04/27/17 13:20 04/27/17 14:00 04/27/17 16:20 04/28/17 07:42 Lactic Acid Level 2.7 *H 1.8 Ethyl Alcohol Level < 10.0 Hemoglobin A1c 5.4 Thyroid Stimulating Hormone (TSH) 1.030 Free Thyroxine 1.60 Creatine Kinase 161 Creatine Kinase Index 1.5 Creatinine Kinase MB (Mass) 2.35 Troponin I 0.018 Sodium Level 145 H Potassium Level 3.7 Chloride Level 106 Carbon Dioxide Level 28 Anion Gap 15 Blood Urea Nitrogen 8 Creatinine 0.72 Glucose Level 97 Calcium Level 9.4 Phosphorus Level 3.4 Magnesium Level 1.8 Total Bilirubin 0.8 Direct Bilirubin 0.00 Indirect Bilirubin 0.8 Aspartate Amino Transf (AST/SGOT) 126 H Alanine Aminotransferase (ALT/SGPT) 66 Alkaline Phosphatase 235 H Total Protein 7.2 Albumin 3.4 Globulin 3.80 H Albumin/Globulin Ratio 0.89 Triglycerides Level 123 Cholesterol Level 178 LDL Cholesterol, Calculated 109 HDL Cholesterol 44 Cholesterol/HDL Ratio 4.0 Test 04/28/17 07:43 White Blood Count 8.7 Red Blood Count 3.43 L Hemoglobin 8.4 L Hematocrit 27.9 L Mean Corpuscular Volume 81.3 L Mean Corpuscular Hemoglobin 24.5 L Mean Corpuscular Hemoglobin Concent 30.1 L Red Cell Distribution Width 18.2 H Platelet Count 424 H Mean Platelet Volume 9.6 Neutrophils % 68.2 Lymphocytes % 16.0 Monocytes % 10.1 Eosinophils % 3.8 Basophils % 1.7 Nucleated Red Blood Cells % 0.0 Neutrophils # 5.9 Lymphocytes # 1.4 Monocytes # 0.9 Eosinophils # 0.3 Basophils # 0.2 H Nucleated Red Blood Cells # 0.0 Creatine Kinase 124 Creatine Kinase Index 1.4 Creatinine Kinase MB (Mass) 1.77 Troponin I < 0.012 B-Type Natriuretic Peptide 533 H Medications Medications Current Medications Ondansetron HCl (Zofran Inj) 4 mg Q6H PRN IV NAUSEA AND/OR VOMITING; Start at 14:00 Morphine Sulfate (morphine) 2 mg Q4H PRN IV PAIN LEVEL 7-10 Last administered on 04/28/17 09:50; Admin Dose 2 MG; Start 04/27/17 at 14:00 Pantoprazole (Protonix Tab) 40 mg BID@06,18 PO Last administered on 04/28/17 05:44; Admin Dose 40 MG; Start 04/27/17 at 18:00 Sucralfate (Carafate) 1 gm QID PO Last administered on 04/28/17 09:44; Admin Dose 1 GM; Start 04/27/17 at 17:00 Chlordiazepoxide (Librium) 50 mg TID PO Last administered on 04/28/17 09:43; Admin Dose 50 MG; Start 04/27/17 at 21:00 Lorazepam (Ativan) 1 mg Q2H PRN IV Anxiety Last administered on 04/27/17 19: 35; Admin Dose 1 MG; Start 04/27/17 at 14:00 Thiamine HCl (Vitamin B1) 100 mg DAILY PO Last administered on 04/28/17 09:44 ; Admin Dose 100 MG; Start 04/28/17 at 09:00 Folic Acid 1 mg 1 mg DAILY PO Last administered on 04/28/17 09:44; Admin Dose 1 MG; Start 04/28/17 at 09:00 Ceftriaxone Sodium (Rocephin) 50 ml @ 100 mls/hr Q24H IVPB Last administered on 04/27/17 15:00; Admin Dose 100 MLS/HR; Start 04/27/17 at 15:00 Docusate Sodium/ Ferrous Fumarate (Senthil-Sequels) 1 tab BID PO Last administered on 04/28/17 09:44; Admin Dose 1 TAB; Start 04/27/17 at 21:00 Influenza Virus Vaccine (Fluzone) 0.5 ml ONCE ONCE IM* ; Start 04/29/17 at 09: 00; Stop 04/29/17 at 09:01 IMTIAZ NEWELL NP Apr 28, 2017 10:37
--- NOTE | 2017-04-28 13:33 | CONS ---
Date/Time of Note Date/Time of Note DATE: 04/28/17 TIME: 13:26 Assessment/Plan Assessment/Plan Additional Assessment/Plan Shortness of breath, myalgias and fatigue Acute decompensated diastolic congestive heart failure Preserved ejection fraction Moderate pulmonary hypertension Elevated lactic acid History of pacemaker SIRS Alcohol abuse -Patient presents with multiple complaints of body aches, myalgias, chills and shortness of breath. Initial chest x-ray with possible evidence of pulmonary vascular congestion but CT chest done with no evidence of pulmonary emboli as well as minimal pulmonary vascular congestion. BNP is moderately elevated. Etiology of patient's elevated lactic acid level is unclear. Patient symptoms of shortness of breath has improved after Lasix, would continue low-dose p.o. Lasix with holding parameters for blood pressure. Consultation Date/Type/Reason Admit Date/Time Type of Consultation: cv Reason for Consultation Cardiac evaluation for shortness of breath Hx of Present Illness This is a 52-year-old male with past medical history of gastric ulcer, alcohol use, pacemaker placed 2002 who presents with multiple complaints including body aches, fatigue, weakness and shortness of breath going on over the past month. Patient complaining of intermittent chills but denies fever. His body aches have been getting worse over the past month. He does admit to significant alcohol use but he has decreased his alcohol consumption over the past 6 months. He was recently diagnosed with a gastric ulcer has been on GI therapy for this reason. He has been having symptoms of shortness of breath off-and-on over the past few weeks that was worse prior to admission. His symptoms have improved since his admission. The current time, he continues to complain of body aches and fatigue but shortness of breath has improved. He denies any chest pain or palpitations. 12 point review of systems was performed with all pertinent positives and negatives mentioned above and all else is negative Past Medical History Medical History: peptic ulcer disease, other (Asthma, alcohol use) Past Surgical History Past Surgical Hx: other (Pacemaker placement) Social History Alcohol Use: heavy Smoking Status: Former smoker Drug Use: none Exam/Review of Systems Vital Signs Vitals Vital Signs Date Time Temp Pulse Resp B/P Pulse Ox O2 Delivery O2 Flow Rate FiO2 04/28/17 13:13 90 20 98 Nasal Cannula 2.0 04/28/17 13:13 27 04/28/17 08:03 98.9 155/81 Intake and Output 04/27/17 04/27/17 04/28/17 15:00 23:00 07:00 Intake Total 650 ml Output Total 800 ml 550 ml Balance -800 ml 100 ml Exam Sleeping but arousable, following commands and able to give history, no apparent distress Head: normocephalic Respiratory: other (Coarse breath sounds bilaterally, no wheezing) Cardiovascular: other (S1-S2 heard), regular rate and rhythm Gastrointestinal: bowel sounds, non-tender, soft Extremities: other (No significant edema) Results Result Diagram: 04/28/17 0743 04/28/17 0742 Results 24 hrs Laboratory Tests Test 04/27/17 14:00 04/27/17 16:20 04/28/17 07:42 04/28/17 07:43 Hemoglobin A1c 5.4 Thyroid Stimulating Hormone (TSH) 1.030 Free Thyroxine 1.60 Lactic Acid Level 1.8 Creatine Kinase 161 124 Creatine Kinase Index 1.5 1.4 Creatinine Kinase MB (Mass) 2.35 1.77 Troponin I 0.018 < 0.012 Sodium Level 145 H Potassium Level 3.7 Chloride Level 106 Carbon Dioxide Level 28 Anion Gap 15 Blood Urea Nitrogen 8 Creatinine 0.72 Glucose Level 97 Calcium Level 9.4 Phosphorus Level 3.4 Magnesium Level 1.8 Total Bilirubin 0.8 Direct Bilirubin 0.00 Indirect Bilirubin 0.8 Aspartate Amino Transf (AST/SGOT) 126 H Alanine Aminotransferase (ALT/SGPT) 66 Alkaline Phosphatase 235 H Total Protein 7.2 Albumin 3.4 Globulin 3.80 H Albumin/Globulin Ratio 0.89 Triglycerides Level 123 Cholesterol Level 178 LDL Cholesterol, Calculated 109 HDL Cholesterol 44 Cholesterol/HDL Ratio 4.0 White Blood Count 8.7 Red Blood Count 3.43 L Hemoglobin 8.4 L Hematocrit 27.9 L Mean Corpuscular Volume 81.3 L Mean Corpuscular Hemoglobin 24.5 L Mean Corpuscular Hemoglobin Concent 30.1 L Red Cell Distribution Width 18.2 H Platelet Count 424 H Mean Platelet Volume 9.6 Neutrophils % 68.2 Lymphocytes % 16.0 Monocytes % 10.1 Eosinophils % 3.8 Basophils % 1.7 Nucleated Red Blood Cells % 0.0 Neutrophils # 5.9 Lymphocytes # 1.4 Monocytes # 0.9 Eosinophils # 0.3 Basophils # 0.2 H Nucleated Red Blood Cells # 0.0 B-Type Natriuretic Peptide 533 H Medications Medications Current Medications Ondansetron HCl (Zofran Inj) 4 mg Q6H PRN IV NAUSEA AND/OR VOMITING; Start at 14:00 Morphine Sulfate (morphine) 2 mg Q4H PRN IV PAIN LEVEL 7-10 Last administered on 04/28/17 09:50; Admin Dose 2 MG; Start 04/27/17 at 14:00 Pantoprazole (Protonix Tab) 40 mg BID@06,18 PO Last administered on 04/28/17 05:44; Admin Dose 40 MG; Start 04/27/17 at 18:00 Sucralfate (Carafate) 1 gm QID PO Last administered on 04/28/17 12:52; Admin Dose 1 GM; Start 04/27/17 at 17:00 Chlordiazepoxide (Librium) 50 mg TID PO Last administered on 04/28/17 12:52; Admin Dose 50 MG; Start 04/27/17 at 21:00; Stop 04/28/17 at 21:00 Lorazepam (Ativan) 1 mg Q2H PRN IV Anxiety Last administered on 04/27/17 19: 35; Admin Dose 1 MG; Start 04/27/17 at 14:00 Thiamine HCl (Vitamin B1) 100 mg DAILY PO Last administered on 04/28/17 09:44 ; Admin Dose 100 MG; Start 04/28/17 at 09:00 Folic Acid 1 mg 1 mg DAILY PO Last administered on 04/28/17 09:44; Admin Dose 1 MG; Start 04/28/17 at 09:00 Ceftriaxone Sodium (Rocephin) 50 ml @ 100 mls/hr Q24H IVPB Last administered on 04/27/17 15:00; Admin Dose 100 MLS/HR; Start 04/27/17 at 15:00 Docusate Sodium/ Ferrous Fumarate (Senthil-Sequels) 1 tab BID PO Last administered on 04/28/17 09:44; Admin Dose 1 TAB; Start 04/27/17 at 21:00 Influenza Virus Vaccine (Fluzone) 0.5 ml ONCE ONCE IM* ; Start 04/29/17 at 09: 00; Stop 04/29/17 at 09:01 Chlordiazepoxide (Librium) 25 mg TID PO ; Start 04/29/17 at 09:00 Procedures Procedures ECG done yesterday demonstrates sinus tachycardia at 106 bpm, QRS 90 ms, nonspecific ST abnormalities Ethan Holland DO Apr 28, 2017 13:33
[2017-04-28] MEDS: CEFTRIAXONE 1 GM/50 ML (PMX) 50 ML IVPB SCH (15:06)
[2017-04-28] MEDS: LORAZEPAM 2 MG INJ IV PRN ×2 (18:20→21:23)
[2017-04-29] VITALS (11 sets, daily range): BP systolic 126–141; BP diastolic 65–82; PULSE 85–102; RESP 18–19
[2017-04-29] MEDS: morphine 2 MG INJ IV PRN ×6 (01:12→23:46)
[2017-04-29] MEDS: LEVALBUTEROL (NEB) 0.63 MG/3 ML AMP HHN SCH ×4 (02:06→20:13)
[2017-04-29] MEDS: PANTOPRAZOLE (EC) 40 MG TAB PO SCH ×2 (05:16→17:21)
[2017-04-29 07:32] LABS: BASOPHIL # 0.1 10^3/ul (0.0-0.1); BASOPHILS % 1.3 % (0.0-2.0); EOSINOPHILS # 0.6 10^3/ul (0.0-0.5); EOSINOPHILS % 6.8 % (0.0-7.0); HEMATOCRIT 28.4 % (42.0-52.0); HEMOGLOBIN 8.3 g/dl (14.0-18.0); LYMPHOCYTES # 1.4 10^3/ul (0.8-2.9); LYMPHOCYTES % 15.6 % (15.0-51.0); MEAN CORPUSCULAR HEMOGLOBIN 24.3 pg (29.0-33.0); MEAN CORPUSCULAR HGB CONC 29.2 g/dl (32.0-37.0); MEAN PLATELET VOLUME 9.2 fl (7.4-10.4); MONOCYTE # 0.9 10^3/ul (0.3-0.9); MONOCYTES % 10.3 % (0.0-11.0); NEUTROPHIL # 5.7 10^3/ul (1.6-7.5); NEUTROPHILS % 65.7 % (39.0-77.0); PLATELET COUNT 385 10^3/UL (140-415); RED BLOOD COUNT 3.42 10^6/ul (4.70-6.10); RED CELL DISTRIBUTION WIDTH 17.7 % (11.5-14.5); WHITE BLOOD COUNT 8.7 10^3/ul (4.8-10.8)
[2017-04-29 08:08] LABS: MAGNESIUM 1.5 mg/dl (1.7-2.5)
[2017-04-29 08:09] LABS: ALBUMIN 3.4 g/dl (3.3-4.9); ALBUMIN/GLOBULIN RATIO 0.94; BILIRUBIN,INDIRECT 0.5 mg/dl (0-1.1); BILIRUBIN,TOTAL 0.5 mg/dl (0.2-1.3); CALCIUM 8.6 mg/dl (8.4-10.2); CREATININE 0.67 mg/dl (0.61-1.24); POTASSIUM 3.3 mmol/L (3.5-5.1)
[2017-04-29] MEDS: CHLORDIAZEPOXIDE 25 MG CAP PO SCH ×3 (08:57→21:41)
[2017-04-29] MEDS: FOLIC ACID 1 MG TAB PO SCH (08:58)
[2017-04-29] MEDS: SUCRALFATE 1 GM TAB PO SCH ×4 (08:58→21:41)
[2017-04-29] MEDS: FERROUS FUMARATE (SR) TAB PO SCH ×2 (08:58→21:41)
[2017-04-29] MEDS: FUROSEMIDE 20 MG TAB PO SCH (08:58)
[2017-04-29] MEDS: THIAMINE 100 MG TAB PO SCH (08:58)
[2017-04-29] MEDS ORDERED: POTASSIUM CHLORIDE (SR) 10 MEQ TAB PO ONE (09:00)
[2017-04-29] MEDS ORDERED: MAGNESIUM SULFATE 2 GM/50 ML 50 ML IVPB ONE (09:00)
[2017-04-29] MEDS ORDERED: INFLUENZA VIRUS VACCINE 0.5 ML (DISPENSING) IM* ONE (09:00)
--- NOTE | 2017-04-29 10:34 | RADRPT ---
PROCEDURE: XR Chest. CLINICAL INDICATION: Infiltrates. TECHNIQUE: Single frontal view of the chest was obtained. COMPARISON: 04/27/2017. FINDINGS: The cardiomediastinal silhouette demonstrates enlargement of the cardiac silhouette. There are aorti c calcifications. There is a left-sided cardiac device. There is pulmonary vascular congestion. There is a new left basilar opacity. No pleural effusion is seen. No definite pneumothorax. No acute osseous abnormality. IMPRESSION: 1. Cardiomegaly with pulmonary vascular congestion. 2. New left basilar opacity, which could represent atelectasis. RPTAT: EE Catracho Lui Physician Date Time Electronically viewed and signed by Catracho Lui Physician on 04/29/2017 10:34 PH/
--- NOTE | 2017-04-29 11:02 | CONS ---
Date/Time of Note Date/Time of Note DATE: 04/29/17 TIME: 11:01 Assessment/Plan Assessment/Plan Additional Assessment/Plan Shortness of breath, myalgias and fatigue Acute decompensated diastolic congestive heart failure Preserved ejection fraction Moderate pulmonary hypertension Elevated lactic acid History of pacemaker SIRS Alcohol abuse -Patient presents with multiple complaints of body aches, myalgias, chills and shortness of breath. Initial chest x-ray with possible evidence of pulmonary vascular congestion but CT chest done with no evidence of pulmonary emboli as well as minimal pulmonary vascular congestion. BNP is moderately elevated. Etiology of patient's elevated lactic acid level is unclear. Chest x-ray today with possible infiltrate versus atelectasis, patient is currently on antibiotics. Patient symptoms of shortness of breath has improved after Lasix, would continue low-dose p.o. Lasix with holding parameters for blood pressure. Would supplement potassium and magnesium to ideally maintain above 4.0 and 2.0 respectively. Consultation Date/Type/Reason Admit Date/Time Apr 27, 2017 at 12:54 Initial Consult Date Type of Consultation: cv 24 HR Interval Summary Free Text/Dictation Shortness of breath continues to improve. Continues to complain of body aches and fatigue Exam/Review of Systems Vital Signs Vitals Vital Signs Date Time Temp Pulse Resp B/P Pulse Ox O2 Delivery O2 Flow Rate FiO2 04/29/17 09:36 Nasal Cannula 2.0 04/29/17 08:00 86 04/29/17 07:41 98.3 19 128/70 98 04/28/17 13:13 27 Intake and Output 04/28/17 04/28/17 04/29/17 15:00 23:00 07:00 Intake Total 500 ml Output Total 400 ml Balance 100 ml Exam No apparent distress Constitutional: alert, oriented Head: normocephalic Respiratory: other (Coarse breath sounds bilaterally, no wheezing) Cardiovascular: other (S1-S2 heard), regular rate and rhythm Gastrointestinal: bowel sounds, non-tender, soft Extremities: other (No significant edema) Results Result Diagram: 04/29/17 0657 04/29/17 0657 Results 24 hrs Laboratory Tests Test 04/29/17 06:57 White Blood Count 8.7 Red Blood Count 3.42 L Hemoglobin 8.3 L Hematocrit 28.4 L Mean Corpuscular Volume 83.0 Mean Corpuscular Hemoglobin 24.3 L Mean Corpuscular Hemoglobin Concent 29.2 L Red Cell Distribution Width 17.7 H Platelet Count 385 Mean Platelet Volume 9.2 Neutrophils % 65.7 Lymphocytes % 15.6 Monocytes % 10.3 Eosinophils % 6.8 Basophils % 1.3 Nucleated Red Blood Cells % 0.0 Neutrophils # 5.7 Lymphocytes # 1.4 Monocytes # 0.9 Eosinophils # 0.6 H Basophils # 0.1 Nucleated Red Blood Cells # 0.0 Sodium Level 142 Potassium Level 3.3 L Chloride Level 107 Carbon Dioxide Level 27 Anion Gap 11 Blood Urea Nitrogen 10 Creatinine 0.67 Glucose Level 103 Calcium Level 8.6 Phosphorus Level 4.0 Magnesium Level 1.5 L Total Bilirubin 0.5 Direct Bilirubin 0.00 Indirect Bilirubin 0.5 Aspartate Amino Transf (AST/SGOT) 114 H Alanine Aminotransferase (ALT/SGPT) 56 Alkaline Phosphatase 219 H Total Protein 7.0 Albumin 3.4 Globulin 3.60 H Albumin/Globulin Ratio 0.94 Medications Medications Current Medications Ondansetron HCl (Zofran Inj) 4 mg Q6H PRN IV NAUSEA AND/OR VOMITING; Start at 14:00 Morphine Sulfate (morphine) 2 mg Q4H PRN IV PAIN LEVEL 7-10 Last administered on 04/29/17 09:22; Admin Dose 2 MG; Start 04/27/17 at 14:00 Pantoprazole (Protonix Tab) 40 mg BID@06,18 PO Last administered on 04/29/17 05:16; Admin Dose 40 MG; Start 04/27/17 at 18:00 Sucralfate (Carafate) 1 gm QID PO Last administered on 04/29/17 08:58; Admin Dose 1 GM; Start 04/27/17 at 17:00 Lorazepam (Ativan) 1 mg Q2H PRN IV Anxiety Last administered on 04/28/17 21: 23; Admin Dose 1 MG; Start 04/27/17 at 14:00 Thiamine HCl (Vitamin B1) 100 mg DAILY PO Last administered on 04/29/17 08:58 ; Admin Dose 100 MG; Start 04/28/17 at 09:00 Folic Acid 1 mg 1 mg DAILY PO Last administered on 04/29/17 08:58; Admin Dose 1 MG; Start 04/28/17 at 09:00 Ceftriaxone Sodium (Rocephin) 50 ml @ 100 mls/hr Q24H IVPB Last administered on 04/28/17 15:06; Admin Dose 100 MLS/HR; Start 04/27/17 at 15:00 Docusate Sodium/ Ferrous Fumarate (Senthil-Sequels) 1 tab BID PO Last administered on 04/29/17 08:58; Admin Dose 1 TAB; Start 04/27/17 at 21:00 Chlordiazepoxide (Librium) 25 mg TID PO Last administered on 04/29/17 08:57; Admin Dose 25 MG; Start 04/29/17 at 09:00 Furosemide (Lasix) 20 mg DAILY PO Last administered on 04/29/17 08:58; Admin Dose 20 MG; Start 04/29/17 at 09:00 Etahn Holland DO Apr 29, 2017 11:02
--- NOTE | 2017-04-29 11:31 | PN ---
Date/Time of Note Date/Time of Note DATE: 04/29/17 TIME: 11:28 Assessment/Plan VTE Prophylaxis VTE Prophylaxis Intervention: SCD's Lines/Catheters IV C[facility]ter Type (from [facility] Peripheral IV Urinary Cath still in place: No Assessment/Plan Chief Complaint/Hosp Course 1. Acute respiratory failure. Hypoxic. -Continue inhaled bronchodilators. -Low dose diuretics. 2. Systemic inflammatory response syndrome with sinus tachycardia, tachypnea, and lactic acidosis. Etiology unclear. -Empiric antibiotics. -LLL Atelectasis Versus infiltrate on CXR on 04/29/2017 3. Acute decompensated diastolic heart failure. -Low dose diuretics. -Cardiology evaluation. 4. Status post permanent pacemaker. -Cardiology evaluation. 5. Pulmonary hypertension. PA systolic pressure of 57 mmHg as per 2D echocardiogram. Etiology unclear. -Continue supplemental oxygen. 6. Alcoholism. -Continue tapering dose of Librium. -Continue multivitamins. 7. Peptic ulcer disease. -Continue proton pump inhibitors and Carafate. 8. Anemia. Microcytic and hypochromic. Iron deficiency. -Continue iron supplements. 9. Transaminitis without hyperbilirubinemia. -Trend LFTs. 10. Fluids, electrolytes, and nutrition. -Regular diet. 11. DVT prophylaxis. -Bilateral SCDs. 12. Plan. -Continue empiric antibiotics. -Continue supplemental oxygen and inhaled bronchodilators. -Continue physical therapy. -Replete K and Mg. The patient was seen in collaboration with Dr. Mendenhall. Problems: Subjective 24 Hr Interval Summary Free Text/Dictation Breathing better. Exam/Review of Systems Vital Signs Vitals Vital Signs Date Time Temp Pulse Resp B/P Pulse Ox O2 Delivery O2 Flow Rate FiO2 04/29/17 11:19 98.2 79 19 126/79 98 04/29/17 09:36 Nasal Cannula 2.0 04/28/17 13:13 27 Intake and Output 04/28/17 04/28/17 04/29/17 15:00 23:00 07:00 Intake Total 500 ml Output Total 400 ml Balance 100 ml Exam General: Adequately build 52 year-old male sitting in bed in no apparent distress. HEENT: Normocephalic, atraumatic. Eyes: Anicteric sclerae, conjunctivae clear. ENT: Nasal septum midline, oral mucosa moist. Neck supple, no JVD noticed. Respiratory: Bilaterally diminished breath sounds. No use of accessory muscles of respiration. Coarse breath sounds. Cardiovascular: S1, S2 heard. Regular rate and rhythm. Abdomen: Soft, nontender, and nondistended. Bowel sounds positive in all 4 quadrants. Genitourinary: Deferred. Extremities: No cyanosis, no clubbing. Bilateral lower extremity 2+ pitting edema. Peripheral pulses palpable. Neurologic: Cranial nerves II through XII grossly intact. The patient is awake, alert, and oriented. Skin: Normal skin turgor. No skin rashes. Results Result Diagram: 04/29/1765604/29/1757 Results 24 hrs Laboratory Tests Test 04/29/17 06:57 White Blood Count 8.7 Red Blood Count 3.42 L Hemoglobin 8.3 L Hematocrit 28.4 L Mean Corpuscular Volume 83.0 Mean Corpuscular Hemoglobin 24.3 L Mean Corpuscular Hemoglobin Concent 29.2 L Red Cell Distribution Width 17.7 H Platelet Count 385 Mean Platelet Volume 9.2 Neutrophils % 65.7 Lymphocytes % 15.6 Monocytes % 10.3 Eosinophils % 6.8 Basophils % 1.3 Nucleated Red Blood Cells % 0.0 Neutrophils # 5.7 Lymphocytes # 1.4 Monocytes # 0.9 Eosinophils # 0.6 H Basophils # 0.1 Nucleated Red Blood Cells # 0.0 Sodium Level 142 Potassium Level 3.3 L Chloride Level 107 Carbon Dioxide Level 27 Anion Gap 11 Blood Urea Nitrogen 10 Creatinine 0.67 Glucose Level 103 Calcium Level 8.6 Phosphorus Level 4.0 Magnesium Level 1.5 L Total Bilirubin 0.5 Direct Bilirubin 0.00 Indirect Bilirubin 0.5 Aspartate Amino Transf (AST/SGOT) 114 H Alanine Aminotransferase (ALT/SGPT) 56 Alkaline Phosphatase 219 H Total Protein 7.0 Albumin 3.4 Globulin 3.60 H Albumin/Globulin Ratio 0.94 Medications Medications Current Medications Ondansetron HCl (Zofran Inj) 4 mg Q6H PRN IV NAUSEA AND/OR VOMITING; Start at 14:00 Morphine Sulfate (morphine) 2 mg Q4H PRN IV PAIN LEVEL 7-10 Last administered on 04/29/17 09:22; Admin Dose 2 MG; Start 04/27/17 at 14:00 Pantoprazole (Protonix Tab) 40 mg BID@06,18 PO Last administered on 04/29/17 05:16; Admin Dose 40 MG; Start 04/27/17 at 18:00 Sucralfate (Carafate) 1 gm QID PO Last administered on 04/29/17 08:58; Admin Dose 1 GM; Start 04/27/17 at 17:00 Lorazepam (Ativan) 1 mg Q2H PRN IV Anxiety Last administered on 04/28/17 21: 23; Admin Dose 1 MG; Start 04/27/17 at 14:00 Thiamine HCl (Vitamin B1) 100 mg DAILY PO Last administered on 04/29/17 08:58 ; Admin Dose 100 MG; Start 04/28/17 at 09:00 Folic Acid 1 mg 1 mg DAILY PO Last administered on 04/29/17 08:58; Admin Dose 1 MG; Start 04/28/17 at 09:00 Ceftriaxone Sodium (Rocephin) 50 ml @ 100 mls/hr Q24H IVPB Last administered on 04/28/17 15:06; Admin Dose 100 MLS/HR; Start 04/27/17 at 15:00 Docusate Sodium/ Ferrous Fumarate (Senthil-Sequels) 1 tab BID PO Last administered on 04/29/17 08:58; Admin Dose 1 TAB; Start 04/27/17 at 21:00 Chlordiazepoxide (Librium) 25 mg TID PO Last administered on 04/29/17 08:57; Admin Dose 25 MG; Start 04/29/17 at 09:00 Furosemide (Lasix) 20 mg DAILY PO Last administered on 04/29/17 08:58; Admin Dose 20 MG; Start 04/29/17 at 09:00 Potassium Chloride (Klor-Con 20) 40 meq ONCE ONCE PO ; Start 04/29/17 at 16:00 ; Stop 04/29/17 at 16:01 IMTIAZ NEWELL NP Apr 29, 2017 11:31
[2017-04-29] MEDS: CEFTRIAXONE 1 GM/50 ML (PMX) 50 ML IVPB SCH (14:36)
[2017-04-29] MEDS ORDERED: POTASSIUM CHLORIDE (SR) 20 MEQ TAB PO ONE (16:00)
[2017-04-29] MEDS ORDERED: CHLORDIAZEPOXIDE 5 MG CAP PO SCH (21:00)
[2017-04-29] MEDS: LORAZEPAM 2 MG INJ IV PRN (21:41)
[2017-04-30] VITALS (8 sets, daily range): BP systolic 110–137; BP diastolic 54–78; PULSE 72–98; RESP 16–18
[2017-04-30] MEDS: LEVALBUTEROL (NEB) 0.63 MG/3 ML AMP HHN SCH ×3 (01:57→13:08)
[2017-04-30] MEDS: morphine 2 MG INJ IV PRN ×3 (03:47→13:41)
[2017-04-30] MEDS: PANTOPRAZOLE (EC) 40 MG TAB PO SCH (05:52)
[2017-04-30 06:45] LABS: BASOPHIL # 0.1 10^3/ul (0.0-0.1); BASOPHILS % 1.3 % (0.0-2.0); EOSINOPHILS # 0.7 10^3/ul (0.0-0.5); EOSINOPHILS % 8.6 % (0.0-7.0); HEMATOCRIT 28.8 % (42.0-52.0); HEMOGLOBIN 8.5 g/dl (14.0-18.0); LYMPHOCYTES # 1.4 10^3/ul (0.8-2.9); LYMPHOCYTES % 16.9 % (15.0-51.0); MEAN CORPUSCULAR HEMOGLOBIN 24.5 pg (29.0-33.0); MEAN CORPUSCULAR HGB CONC 29.5 g/dl (32.0-37.0); MEAN PLATELET VOLUME 9.6 fl (7.4-10.4); MONOCYTE # 0.8 10^3/ul (0.3-0.9); MONOCYTES % 9.3 % (0.0-11.0); NEUTROPHIL # 5.2 10^3/ul (1.6-7.5); NEUTROPHILS % 63.7 % (39.0-77.0); PLATELET COUNT 405 10^3/UL (140-415); RED BLOOD COUNT 3.47 10^6/ul (4.70-6.10); WHITE BLOOD COUNT 8.2 10^3/ul (4.8-10.8)
[2017-04-30 07:22] LABS: ALBUMIN 3.3 g/dl (3.3-4.9); ALBUMIN/GLOBULIN RATIO 0.86; BILIRUBIN,INDIRECT 0.6 mg/dl (0-1.1); BILIRUBIN,TOTAL 0.6 mg/dl (0.2-1.3); CREATININE 0.7 mg/dl (0.61-1.24); POTASSIUM 3.8 mmol/L (3.5-5.1); TOTAL PROTEIN 7.1 g/dl (6.1-8.1)
[2017-04-30 07:25] LABS: MAGNESIUM 1.7 mg/dl (1.7-2.5); PHOSPHORUS 3.9 mg/dl (2.5-4.9)
--- NOTE | 2017-04-30 08:35 | PN ---
Date/Time of Note Date/Time of Note DATE: 04/30/17 TIME: 08:33 Assessment/Plan VTE Prophylaxis VTE Prophylaxis Intervention: SCD's Lines/Catheters IV Catheter Type (from Nrs): Peripheral IV Urinary Cath still in place: No Assessment/Plan Assessment/Plan Shortness of breath, myalgias and fatigue Acute decompensated diastolic congestive heart failure Preserved ejection fraction Moderate pulmonary hypertension Elevated lactic acid History of pacemaker SIRS Alcohol abuse - Initial chest x-ray with possible evidence of pulmonary vascular congestion but CT chest done with no evidence of pulmonary emboli as well as minimal pulmonary vascular congestion. BNP is moderately elevated. Chest x-ray today with possible infiltrate versus atelectasis, patient is currently on antibiotics. Patient symptoms of shortness of breath has improved after Lasix, would continue low-dose p.o. Lasix with holding parameters for blood pressure. Would supplement potassium and magnesium to ideally maintain above 4.0 and 2.0 respectively. EF normal Subjective 24 Hr Interval Summary Free Text/Dictation The patient with no compalints Exam/Review of Systems Vital Signs Vitals Vital Signs Date Time Temp Pulse Resp B/P Pulse Ox O2 Delivery O2 Flow Rate FiO2 04/30/17 08:12 81 04/30/17 07:36 98.0 18 137/72 97 04/30/17 07:28 21 04/29/17 20:13 Nasal Cannula 2.0 Intake and Output 04/29/17 04/29/17 04/30/17 15:00 23:00 07:00 Intake Total 1000 ml 240 ml Balance 1000 ml 240 ml Results Result Diagram: 04/30/17 0549 04/30/17 0549 Results 24 hrs Laboratory Tests Test 04/30/17 05:49 White Blood Count 8.2 Red Blood Count 3.47 L Hemoglobin 8.5 L Hematocrit 28.8 L Mean Corpuscular Volume 83.0 Mean Corpuscular Hemoglobin 24.5 L Mean Corpuscular Hemoglobin Concent 29.5 L Red Cell Distribution Width 18.0 H Platelet Count 405 Mean Platelet Volume 9.6 Neutrophils % 63.7 Lymphocytes % 16.9 Monocytes % 9.3 Eosinophils % 8.6 H Basophils % 1.3 Nucleated Red Blood Cells % 0.0 Neutrophils # 5.2 Lymphocytes # 1.4 Monocytes # 0.8 Eosinophils # 0.7 H Basophils # 0.1 Nucleated Red Blood Cells # 0.0 Sodium Level 143 Potassium Level 3.8 Chloride Level 106 Carbon Dioxide Level 29 Anion Gap 12 Blood Urea Nitrogen 10 Creatinine 0.70 Glucose Level 97 Calcium Level 9.0 Phosphorus Level 3.9 Magnesium Level 1.7 Total Bilirubin 0.6 Direct Bilirubin 0.00 Indirect Bilirubin 0.6 Aspartate Amino Transf (AST/SGOT) 135 H Alanine Aminotransferase (ALT/SGPT) 46 Alkaline Phosphatase 211 H Total Protein 7.1 Albumin 3.3 Globulin 3.80 H Albumin/Globulin Ratio 0.86 Medications Medications Current Medications Ondansetron HCl (Zofran Inj) 4 mg Q6H PRN IV NAUSEA AND/OR VOMITING; Start at 14:00 Morphine Sulfate (morphine) 2 mg Q4H PRN IV PAIN LEVEL 7-10 Last administered on 04/30/17 03:47; Admin Dose 2 MG; Start 04/27/17 at 14:00 Pantoprazole (Protonix Tab) 40 mg BID@06,18 PO Last administered on 04/30/17 05:52; Admin Dose 40 MG; Start 04/27/17 at 18:00 Sucralfate (Carafate) 1 gm QID PO Last administered on 04/29/17 21:41; Admin Dose 1 GM; Start 04/27/17 at 17:00 Lorazepam (Ativan) 1 mg Q2H PRN IV Anxiety Last administered on 04/29/17 21: 41; Admin Dose 1 MG; Start 04/27/17 at 14:00 Thiamine HCl (Vitamin B1) 100 mg DAILY PO Last administered on 04/29/17 08:58 ; Admin Dose 100 MG; Start 04/28/17 at 09:00 Folic Acid 1 mg 1 mg DAILY PO Last administered on 04/29/17 08:58; Admin Dose 1 MG; Start 04/28/17 at 09:00 Ceftriaxone Sodium (Rocephin) 50 ml @ 100 mls/hr Q24H IVPB Last administered on 04/29/17 14:36; Admin Dose 100 MLS/HR; Start 04/27/17 at 15:00 Docusate Sodium/ Ferrous Fumarate (Senthil-Sequels) 1 tab BID PO Last administered on 04/29/17 21:41; Admin Dose 1 TAB; Start 04/27/17 at 21:00 Furosemide (Lasix) 20 mg DAILY PO Last administered on 04/29/17 08:58; Admin Dose 20 MG; Start 04/29/17 at 09:00 Chlordiazepoxide (Librium) 10 mg TID PO ; Start 04/30/17 at 09:00 JESIKA JACOBSEN MD Apr 30, 2017 08:35
[2017-04-30] MEDS: FERROUS FUMARATE (SR) TAB PO SCH (08:51)
[2017-04-30] MEDS: THIAMINE 100 MG TAB PO SCH (08:51)
[2017-04-30] MEDS: SUCRALFATE 1 GM TAB PO SCH ×2 (08:51→12:13)
[2017-04-30] MEDS: FUROSEMIDE 20 MG TAB PO SCH (08:52)
[2017-04-30] MEDS: FOLIC ACID 1 MG TAB PO SCH (08:52)
[2017-04-30] MEDS: CHLORDIAZEPOXIDE 5 MG CAP PO SCH ×2 (08:52→12:13)
--- NOTE | 2017-04-30 11:47 | RADRPT ---
PROCEDURE: XR Chest. CLINICAL INDICATION: Shortness of breath TECHNIQUE: Single portable view of the chest was obtained COMPARISON: April 29, 2017 FINDINGS: The trachea is midline. The cardiac silhouette and pulmonary vascularity are prominent. The lungs ar e clear. The costophrenic angles are sharp. There is a dual lead left-sided pacer device. IMPRESSION: 1. Cardiomegaly and mild pulmonary vascular congestion. No change since prior study. RPTAT: AAPP Physician Miles Date Time Electronically viewed and signed by Brian Caba Physician on 04/30/2017 11:47 JL/
[2017-04-30] MEDS ORDERED: ACETAMINOPHEN 500 MG TAB PO PRN (12:00)
[2017-04-30] MEDS: CEFTRIAXONE 1 GM/50 ML (PMX) 50 ML IVPB SCH (14:04)
--- NOTE | 2017-04-30 14:20 | PDOCDIS ---
Discharge Instructions DIAGNOSIS Discharge Diagnosis Diastolic heart failure. CONDITION Patient Condition: Stable HOME CARE INSTRUCTIONS: Special Diet: REGULAR FOLLOW UP/APPOINTMENTS Follow-up Plan Hal Leger MD Specialty: Internal Medicine Office Address: [address] [place], [place] [id number] Office OTHER ORDERS: Other Orders: 1. Take medications as per prescription. 2. Take a regular, preferably low-cholesterol diet. 3. Resume activities as tolerated. 4. Avoid using EtOH. 5. Follow-up with your primary physician in 1 week. If you do not have a primary care physician, please call Dr. Hal Leegr's office. IMTIAZ NEWELL NP Apr 30, 2017 14:20
[2017-04-30] MEDS ORDERED: FOLI-49 PO (14:24)
[2017-04-30] MEDS ORDERED: SUCR1TAB27 PO (14:24)
[2017-04-30] MEDS ORDERED: THIA100T56 PO (14:24)
[2017-04-30] MEDS ORDERED: FER325 PO (14:24)
[2017-04-30] MEDS ORDERED: PANT40TA4 PO (14:24)
[2017-04-30] MEDS ORDERED: TRAM50TA2 PO (14:27)
[2017-04-30] MEDS ORDERED: CHLO5CAP2 PO (14:27)
[2017-04-30] MEDS ORDERED: LAS20 PO (14:28)
--- NOTE | 2017-04-30 15:20 | DS ---
Date/Time of Note Date/Time of Note DATE: 04/30/17 TIME: 15:20 Discharge Summary Admission/Discharge Info Admit Date/Time Apr 27, 2017 at 12:54 Discharge Date/Time Discharge Diagnosis 1. Acute respiratory failure. Hypoxic. 2. S/P systemic inflammatory response syndrome with sinus tachycardia, tachypnea, and lactic acidosis. 3. Acute decompensated diastolic heart failure. 4. Status post permanent pacemaker. 5. Pulmonary hypertension. PA systolic pressure of 57 mmHg. 6. Alcoholism. 7. Peptic ulcer disease. 8. Anemia. Microcytic and hypochromic. 9. Iron deficiency. 10. Transaminitis without hyperbilirubinemia. 11. Generalized body aches. Patient Condition: Stable Consults 1. Ethan Holland DO, Cardiology. 2. Rik Lynch MD, Cardiology. Procedures CTA of Thorax IMPRESSION: No evidence of pulmonary embolus. Cardiomegaly. Trace aortic atherosclerosis. 2D Echocardiogram Conclusions 1. Normal left ventricular systolic function. Normal left ventricular cavity size. Mild concentric left ventricular hypertrophy. Ejection fraction is visually estimated at 65 %. Tissue Doppler/Mitral Doppler indices are consistent with impaired relaxation (Stage I diastolic dysfunction). 2. Normal right ventricular size. Normal right ventricular systolic function. Linear artifact in right ventricle suggestive of catheter, pacer lead, or ICD lead. 3. There is mild enlargement of left atrium. 4. The right atrium is normal in size. 5. Estimated peak PA systolic pressure 57 mmHg. There is mild tricuspid regurgitation. 6. No significant valvular stenosis or regurgitation seen of remaining visualized valves. 7. Normal pericardium with no significant pericardial effusion. Hx of Present Illness Reason for admission. Dyspnea, body aches, shakiness, etc. for the past 1 week. This is a 52-year-old male patient with past medical history of asthma, EtOH abuse, anxiety disorder, peptic ulcer disease, fatty liver, and permanent pacemaker placement who came to the emergency room with chief complaint of dyspnea, bilateral lower extremity edema, body aches, and shaking that has been going on for the past 1 week. The patient denied any fevers or chills. The patient verbalized associated nausea. The patient denied any chest pain. The patient denied any abdominal pain. The patient continues to drink on a daily basis. The patient's last drink was approximately 7 hours prior to the patient' s hospital visit. In the emergency room, the patient was initially placed on BiPAP therapy. The patient did vomit after BiPAP therapy was initiated. Therefore, the patient's BiPAP was removed. The patient underwent a CT angiogram of the chest that was negative for any pulmonary embolism. The patient was given Ativan in multiple doses with improvement the patient's symptoms. The patient was also noticed to have lactic acidosis and sinus tachycardia. The patient was given empiric antibiotics for any underlying infectious process. The patient remained afebrile. The patient was also given a single dose of IV Lasix in the emergency room. Hospital Course The patient was admitted to inpatient telemetry floor. A cardiology consult was obtained. The patient was started on inhaled bronchodilators. The patient' s acute respiratory failure could have been most probably secondary to his underlying diastolic heart failure. The patient's 2D echocardiogram showed evidence of diastolic heart failure. The patient responded well to diuretic therapy and inhaled bronchodilators. The patient had evidence of systemic inflammatory response syndrome with sinus tachycardia, tachypnea and lactic acidosis upon presentation to the ER. Hence the patient was started on empiric antibiotics. The patient's calvillo cultures remained negative. The etiology of the systemic inflammatory response syndrome could have been an underlying acute tracheobronchitis. The patient's chest x- ray on 04/29/2017 showed a left lower lobe atelectasis versus infiltrate. However the patient's CT angiogram of the chest was negative for any underlying consolidation. The patient remained afebrile although there is a documented temperature 100.2 on 04/30/2017 at 11:37 AM that was documented after the patient had a hot shower. The patient was on antibiotics throughout the hospital course and this will be discontinued upon discharge. The patient is a current alcohol abuser. The patient was maintained on tapering dose of Librium along with IV benzodiazepines for any acute alcohol withdrawal delirium. The patient was also maintained on multivitamins. The patient has a history of peptic ulcer disease with duodenal ulcers. Hence the patient was maintained on proton pump inhibitors and Carafate. The patient has underlying microcytic, hypochromic anemia. The patient has evidence of iron deficiency. The patient was maintained on iron supplements. The patient was also noticed to have transaminitis without hyperbilirubinemia. The patient's LFTs were trended throughout the hospital course and the patient's LFTs were improving. This could have been most probably secondary to his underlying alcoholism. The patient is status post a permanent pacemaker. The patient was seen and evaluated by cardiology. The patient was complaining of generalized body aches and difficulty with ambulation. The patient was seen and evaluated by physical therapy. The patient will be discharged home with a front wheeled walker and the patient will have home physical therapy arranged for home PT and safety evaluation. The patient has family history of lupus and rheumatic arthritis. Serology for lupus and rheumatoid rheumatoid arthritis can be done as outpatient with the patient's primary care physician. This was informed to the patient. He had a stable hospital course. The patient is stable for discharge home to be followed up with outpatient primary care physician. Discharge Disposition/Plan 1. Take medications as per prescription. 2. Take a regular, preferably low-cholesterol diet. 3. Resume activities as tolerated. 4. Avoid using EtOH. 5. Follow-up with your primary physician in 1 week. If you do not have a primary care physician, please call Dr. Hal Leger's office. The patient verbalized understanding of his discharge instructions. At this time I would like to thank all the consultants for seeing the patient and providing clinical recommendations. The patient was seen in collaboration with Dr. Mendenhall. Home Meds Active Scripts Furosemide (Lasix) 20 Mg Tab, 20 MG PO DAILY, #30 TAB Prov:IMTIAZ NEWELL NP 04/30/17 Chlordiazepoxide* (Chlordiazepoxide*) 5 Mg Capsule, 5 MG PO TID, #6 CAP Prov:IMTIAZ NEWELL NP 04/30/17 Tramadol HCl (Tramadol HCl) 50 Mg Tablet, 50 MG PO Q6H Y for PAIN, #20 TAB Prov:IMTIAZ NEWELL NP 04/30/17 Ferrous Sulfate* (Ferrous Sulfate*) 325 Mg Tabec, 325 MG PO BID, #60 TAB Prov:IMTIAZ NEWELL NP 04/30/17 Sucralfate (Carafate) 1 Gm Tablet, 1 GM PO QID, #120 TAB Prov:IMTIAZ NEWELL NP 04/30/17 Thiamine* (Vitamin B-1*) 100 Mg Tablet, 100 MG PO DAILY, #30 TAB Prov:IMTIAZ NEWELL NP 04/30/17 Folic Acid* (Folic Acid*) 1 Mg Tablet, 1 MG PO DAILY, #30 TAB Prov:IMTIAZ NEWELL NP 04/30/17 Pantoprazole* (Pantoprazole*) 40 Mg Tablet.dr, 40 MG PO BID@,18, #60 TAB Prov:IMTIAZ NEWELL NP 04/30/17 Reported Medications Lorazepam* (Lorazepam*) 0.5 Mg Tablet, 0.5 MG PO HS Y for ANXIETY, TAB 04/27/17 Discontinued Reported Medications Sucralfate* (Carafate*) 1 Gm Tab, 1 GM PO Q6, TAB 04/27/17 Chlordiazepoxide* (Chlordiazepoxide*) 25 Mg Capsule, 25 MG PO DAILY Y for DRINKING WITHRAWLS, CAP 04/27/17 Discontinued Scripts Sucralfate (Carafate) 1 Gm Tablet, 1 GM PO QID for 30 Days, #120 TAB Prov:JOHN OCONNELL MD 03/16/17 Pantoprazole* (Pantoprazole*) 40 Mg Tablet., 40 MG PO BID@,18 for 30 Days, # 60 TAB 1 Refill Prov:JOHN OCONNELL MD 03/16/17 Ascorbic Acid* (Vitamin C*) 500 Mg Capsule.sa, 500 MG PO DAILY, #30 CAP Prov:CATHERINE PRICE MD 09/09/16 Ferrous Sulfate* (Ferrous Sulfate*) 325 Mg Tabec, 325 MG PO DAILY, #30 TAB Prov:CATHERINE PRICE MD 09/09/16 Lorazepam* (Lorazepam*) 1 Mg Tablet, 1 MG PO Q6 Y for AGITATION/ANXIETY, #20 TAB Prov:CATHERINE PRICE MD 09/09/16 [Thiamine] 100 MG TAB No Conflict Check, 100 MG PO DAILY for 30 Days, 2 Refills Prov:CATHERINE PRICE MD 09/09/16 Multivitamins* (Theragran*) 1 Tab Tab, 1 TAB PO DAILY for 30 Days, TAB 2 Refills Prov:CATHERINE PRICE MD 09/09/16 Folic Acid* (Folic Acid*) 1 Mg Tablet, 1 MG PO DAILY, #30 TAB 2 Refills Prov:CATHERINE PRICE MD 09/09/16 Follow-up Plan Hal Leger MD Specialty: Internal Medicine Office Address: [address] [place] [id number] Office Primary Care Provider Not On Staff Doctor Time spent on discharge: 40 minutes. Pending Labs Laboratory Tests Test 04/30/17 05:49 White Blood Count 8.210^3/ul (4.8-10.8) Red Blood Count 3.4710^6/ul (4.70-6.10) Hemoglobin 8.5g/dl (14.0-18.0) Hematocrit 28.8% (42.0-52.0) Mean Corpuscular Volume 83.0fl (82.0-101.0) Mean Corpuscular Hemoglobin 24.5pg (29.0-33.0) Mean Corpuscular Hemoglobin Concent 29.5g/dl (32.0-37.0) Red Cell Distribution Width 18.0% (11.5-14.5) Platelet Count 55989^3/UL (140-415) Mean Platelet Volume 9.6fl (7.4-10.4) Neutrophils % 63.7% (39.0-77.0) Lymphocytes % 16.9% (15.0-51.0) Monocytes % 9.3% (0.0-11.0) Eosinophils % 8.6% (0.0-7.0) Basophils % 1.3% (0.0-2.0) Nucleated Red Blood Cells % 0.0/100WBC (0.0-0.0) Neutrophils # 5.210^3/ul (1.6-7.5) Lymphocytes # 1.410^3/ul (0.8-2.9) Monocytes # 0.810^3/ul (0.3-0.9) Eosinophils # 0.710^3/ul (0.0-0.5) Basophils # 0.110^3/ul (0.0-0.1) Nucleated Red Blood Cells # 0.010^3/ul (0.0-0.0) Sodium Level 143mmol/L (135-144) Potassium Level 3.8mmol/L (3.5-5.1) Chloride Level 106mmol/L (97-110) Carbon Dioxide Level 29mmol/L (21-31) Anion Gap 12 (8-16) Blood Urea Nitrogen 10mg/dl (7-20) Creatinine 0.70mg/dl (0.61-1.24) Glucose Level 97mg/dl (70-220) Calcium Level 9.0mg/dl (8.4-10.2) Phosphorus Level 3.9mg/dl (2.5-4.9) Magnesium Level 1.7mg/dl (1.7-2.5) Total Bilirubin 0.6mg/dl (0.2-1.3) Direct Bilirubin 0.00mg/dl (0.00-0.20) Indirect Bilirubin 0.6mg/dl (0-1.1) Aspartate Amino Transf (AST/SGOT) 135IU/L (15-46) Alanine Aminotransferase (ALT/SGPT) 46IU/L (13-69) Alkaline Phosphatase 211IU/L (42-121) Total Protein 7.1g/dl (6.1-8.1) Albumin 3.3g/dl (3.3-4.9) Globulin 3.80g/dl (1.3-3.2) Albumin/Globulin Ratio 0.86 IMTIAZ NEWELL NP Apr 30, 2017 15:20 IMTIAZ NEWELL NP Apr 30, 2017 15:20
== END 2017-04-30 16:13 | disposition home health service (06) | DRG 291 ==
LOC: E/R 09:08 → TEL 12:54
PROVIDERS: ADMIT Family Medicine; ATTEND Family Medicine
PROC: 3E0F7GC Introduction of Other Therapeutic Substance into Respiratory Tract, Via Natural or Artificial Opening (ICD-10-PCS; principal; 2017-04-27)
PROC: 5A0935Z Assistance with Respiratory Ventilation, Less than 24 Consecutive Hours (ICD-10-PCS; 2017-04-27)
DX: I50.33 Acute on chronic diastolic (congestive) heart failure (principal); J96.01 Acute respiratory failure with hypoxia; E87.2 Acidosis; F10.231 Alcohol dependence with withdrawal delirium; R65.10 Systemic inflammatory response syndrome (SIRS) of non-infectious origin without acute organ dysfunction; I27.20 Pulmonary hypertension, unspecified; K70.0 Alcoholic fatty liver; F41.9 Anxiety disorder, unspecified; J45.909 Unspecified asthma, uncomplicated; D50.9 Iron deficiency anemia, unspecified; K25.9 Gastric ulcer, unspecified as acute or chronic, without hemorrhage or perforation; Y90.0 Blood alcohol level of less than 20 mg/100 ml; Z95.0 Presence of cardiac pacemaker
CPT/HCPCS: 36415; 71010; 71275; 80053; 80061; 80306; 80307; 81003; 82550; 82553; 83036; 83605; 83735; 83880; 84100; 84439; 84443; 84484; 85025; 85610; 85730; 87040; 87086; 87400; 90686; 93005; 93306; 94640; 94660; 94664; 96374; 96375; 96376; 97110; 97116; 97162; 97530; J1940; J0692; J0696; J2060; J2270; J2405; J3370; J3475; J7030; Q9967

== ENCOUNTER 2017-05-06 21:06 | Inpatient (IN) | payer BC ==
[~2017-05-06] VITALS: Ht 177.8 cm; Wt 101.9 kg
[~2017-05-06 21:06] MED LIST changes: -ASCO500C7 PO; +CHLO5CAP2 PO; +LAS20 PO; +LORA0.5T PO; -LORA1TAB PO; -MULTI PO; +THIA100T56 PO; +TRAM50TA2 PO; -Thiamine PO
[2017-05-06 23:53] VITALS: Ht 177.8 cm; Wt 101.9 kg
[2017-05-07] VITALS (11 sets, daily range): BP systolic 132–150; BP diastolic 69–90; PULSE 91–104; RESP 18–21
[2017-05-07] MEDS ORDERED: DEXTROSE 5%-0.45% NACL 1,000 ML IV SCH (00:41)
[2017-05-07] MEDS: morphine 4 MG/ML VIAL IV PRN ×6 (00:58→22:21)
[2017-05-07] MEDS ORDERED: ONDANSETRON 4 MG INJ IV PRN (01:00)
[2017-05-07] MEDS ORDERED: NACL 0.9% 3 ML SYG IV SCH (01:00)
[2017-05-07] MEDS: SOD CHLORIDE 0.9% 1,000 ML IV SCH ×3 (02:03→19:59)
[2017-05-07] MEDS: LORAZEPAM 0.5 MG TAB PO PRN ×2 (03:46→17:27)
[2017-05-07] MEDS: traMADol 50 MG TAB PO PRN ×2 (03:46→19:56)
[2017-05-07 04:10] LABS: BASOPHIL # 0.2 10^3/ul (0.0-0.1); BASOPHILS % 1.9 % (0.0-2.0); EOSINOPHILS # 0.1 10^3/ul (0.0-0.5); EOSINOPHILS % 0.8 % (0.0-7.0); HEMATOCRIT 29.7 % (42.0-52.0); LYMPHOCYTES # 1.9 10^3/ul (0.8-2.9); LYMPHOCYTES % 18.3 % (15.0-51.0); MEAN CORPUSCULAR HGB CONC 30.3 g/dl (32.0-37.0); MEAN CORPUSCULAR VOLUME 79.2 fl (82.0-101.0); MEAN PLATELET VOLUME 9.2 fl (7.4-10.4); MONOCYTE # 1.2 10^3/ul (0.3-0.9); MONOCYTES % 11.9 % (0.0-11.0); NEUTROPHIL # 6.8 10^3/ul (1.6-7.5); NEUTROPHILS % 66.8 % (39.0-77.0); PLATELET COUNT 457 10^3/UL (140-415); RED BLOOD COUNT 3.75 10^6/ul (4.70-6.10); RED CELL DISTRIBUTION WIDTH 19.4 % (11.5-14.5); WHITE BLOOD COUNT 10.2 10^3/ul (4.8-10.8)
[2017-05-07 04:40] LABS: ALBUMIN 3.3 g/dl (3.3-4.9); ALBUMIN/GLOBULIN RATIO 0.86; BILIRUBIN,INDIRECT 0.6 mg/dl (0-1.1); BILIRUBIN,TOTAL 0.6 mg/dl (0.2-1.3); CALCIUM 8.8 mg/dl (8.4-10.2); CREATININE 0.66 mg/dl (0.61-1.24); MAGNESIUM 1.7 mg/dl (1.7-2.5); POTASSIUM 3.8 mmol/L (3.5-5.1); TOTAL PROTEIN 7.1 g/dl (6.1-8.1)
[2017-05-07] MEDS: PANTOPRAZOLE (EC) 40 MG TAB PO SCH ×2 (05:10→17:27)
[2017-05-07] MEDS ORDERED: MAGNESIUM SULFATE 1 GM/D5W 100 ML IVPB ONE (05:30)
[2017-05-07] MEDS: MULTIVITAMINS 10 ML, THIAMINE 100 MG, FOLIC ACID 1 MG in SOD CHLORIDE 0.9% 1,000 ML IVPB SCH (09:12)
--- NOTE | 2017-05-07 09:15 | HP ---
Date/Time of Note Date/Time of Note DATE: 05/07/17 TIME: 09:06 Assessment/Plan VTE Prophylaxis VTE Prophylaxis Intervention: SCD's Lines/Catheters IV Catheter Type (from [facility] Urinary Cath still in place: No Assessment/Plan Assessment/Plan 1. Bilateral hip pain, left worse than right -Will obtain x-ray -Additional imaging as needed -Pain management -PT eval 2. Alcohol abuse, last drink 3 days ago -will treat for possible withdrawal symptoms -Abstinence advised 3. History of duodenal ulcer -PPI 4. History of pacemaker, placed per patient, in 2002 and it never been reevaluated -Advised patient to get a referral to cardiology from his PCP(has appointment next week) 5. Iron deficiency anemia Continue ferrous sulfate HPI/ROS Admit Date/Time Admit Date/Time May 06, 2017 at 23:40 Hx of Present Illness This is a 52-year-old male with a history of chronic alcohol abuse, duodenal ulcer, pacemaker, pulmonary hypertension, iron deficiency anemia. Patient initially went to an outside hospital complaining of left hip pain and difficulty ambulation. He was transferred to [facility] for insurance reason. Patient drinks almost every other day. He said he has been having left hip pain for the past 6 months which has been progressively getting worse to the point where now ambulating is been difficult. He denied back pain , chest pain, shortness of breath. On physical examination there is no obvious deformity but range of motion at some point was limited due to pain. During my physical examination, patient also started complaining of right hip pain and at that moment he said he actually has been having pain in both of his left and right hip. Patient was admitted here recently and was actually discharged last week after he initially presented with hypoxia, possibly secondary to pneumonia. . PMH/Family/Social Past Surgical History Past Surgical Hx: other Social History Smoking Status: Never smoker Exam/Review of Systems Vital Signs Vitals Vital Signs Date Time Temp Pulse Resp B/P Pulse Ox O2 Delivery O2 Flow Rate FiO2 05/07/17 08:10 95 05/07/17 08:09 98.0 19 138/80 95 05/06/17 23:50 Nasal Cannula 2.0 Intake and Output 05/06/17 05/06/17 05/07/17 15:00 23:00 07:00 Intake Total 1000 ml Output Total 375 ml Balance 625 ml Exam Constitutional: other (Appears slightly tired. No acute distress) Head: atraumatic, normocephalic Eyes: EOMI, PERRL Respiratory: clear to auscultation, normal air movement Cardiovascular: nl pulses, regular rate and rhythm Gastrointestinal: non-tender, soft Musculoskeletal: other (Tenderness on palpation of bilateral hips. Range of motion at some point was limited due to pain on both hips. No obvious deformity /swelling or erythema noted) Labs Result Diagram: 05/07/17 0350 05/07/17 0350 Medications Medications Current Medications Lorazepam (Ativan) 2 mg Q1H PRN IV ALCOHOL WITHDRAWAL ; Start 05/07/17 at 01:00 Lorazepam (Ativan) 0.5 mg Q8H PRN PO ANXIETY Last administered on 05/07/17 03: 46; Admin Dose 0.5 MG; Start 05/07/17 at 01:00 Ondansetron HCl (Zofran Inj) 4 mg Q6H PRN IV NAUSEA AND/OR VOMITING; Start 05/07/17 at 01:00 Acetaminophen (Tylenol Tab) 650 mg Q6H PRN PO PAIN LEVEL 1-3 OR FEVER; Start 05/07/17 at 01:00 Morphine Sulfate (morphine) 4 mg Q4H PRN IV PAIN LEVEL 7-10 Last administered on 05/07/17 05:11; Admin Dose 4 MG; Start 05/07/17 at 01:00 Ferrous Sulfate (Ferrous Sulfate (Ec)) 325 mg BID PO ; Start 05/07/17 at 09:00 Folic Acid (Folic Acid) 1 mg DAILY PO ; Start 05/07/17 at 09:00 Furosemide (Lasix) 20 mg DAILY PO ; Start 05/07/17 at 09:00 Pantoprazole (Protonix Tab) 40 mg BID@,18 PO Last administered on 05/07/17 05:10; Admin Dose 40 MG; Start 05/07/17 at 06:00 Sucralfate (Carafate) 1 gm QID PO ; Start 05/07/17 at 09:00 Thiamine HCl (Vitamin B1) 100 mg DAILY PO ; Start 05/07/17 at 09:00 Tramadol HCl (Ultram) 50 mg Q6H PRN PO PAIN Last administered on 05/07/17 03: 46; Admin Dose 50 MG; Start 05/07/17 at 01:00 Chlordiazepoxide 10 mg 10 mg TID PO ; Start 05/07/17 at 09:00 Sodium Chloride 1,000 ml @ 100 mls/hr Q10H IV Last administered on 05/07/17t 02:03; Admin Dose 100 MLS/HR; Start 05/07/17 at 02:00 Multivitamins/ Thiamine HCl/ Folic Acid/Sodium Chloride (Mvi Adult/ Vitamin B1/ Folic Acid/NS) 1,011.2 ml @ 125 mls/ hr DAILY@09 IVPB ; Start 05/07/17 at 09:00 TRACE BUSTOS MD May 07, 2017 09:15
[2017-05-07] MEDS: SUCRALFATE 1 GM TAB PO SCH ×4 (09:20→20:00)
[2017-05-07] MEDS: FERROUS SULFATE (EC) 325 MG TAB PO SCH ×2 (09:20→20:00)
[2017-05-07] MEDS: THIAMINE 100 MG TAB PO SCH (09:20)
[2017-05-07] MEDS: FOLIC ACID 1 MG TAB PO SCH (09:20)
[2017-05-07] MEDS: CHLORDIAZEPOXIDE 5 MG CAP PO SCH ×3 (09:20→20:00)
[2017-05-07] MEDS: FUROSEMIDE 20 MG TAB PO SCH (09:23)
--- NOTE | 2017-05-07 10:00 | RADRPT ---
PROCEDURE: XR left Hip. CLINICAL INDICATION: Left hip pain. TECHNIQUE: AP and frog lateral views of the left hip were performed. COMPARISON: None. FINDINGS: There is no evidence of fracture or dislocation. The joint spaces are maintained. The bony mineralization is normal. The soft tissues are unremarkable. No radiopaque foreign body is identified. IMPRESSION: 1. Unremarkable left hip x-ray series. RPTAT: HLDM .Baldemar Myers MD, MD Date Time Electronically viewed and signed by .Baldemar Myers MD, MD on 05/07/2017 10:00 .M/
--- NOTE | 2017-05-07 10:01 | RADRPT ---
PROCEDURE: XR right Hip. CLINICAL INDICATION: RIGHT HIP PAIN TECHNIQUE: AP and frog lateral views of the hip were performed. COMPARISON: None. FINDINGS: There is normal mineralization and alignment. No fracture or osseous lesion is identified. There are normal joints without evidence of arthritis or effusion. The soft tissues are unremarkable. IMPRESSION: No definite abnormalities are identified. RPTAT:AAJJ Physician Nacho Date Time Electronically viewed and signed by Harman Morales Physician on 05/07/2017 10:01 KELIN/
[2017-05-07] MEDS: ALBUTEROL/IPRATROPIUM (NEB) 3 ML AMP HHN PRN ×2 (12:31→17:41)
[2017-05-08] VITALS (11 sets, daily range): BP systolic 131–144; BP diastolic 71–78; PULSE 90–110; RESP 18–19
[2017-05-08] MEDS: LORAZEPAM 2 MG INJ IV PRN ×2 (01:18→23:05)
[2017-05-08] MEDS: morphine 4 MG/ML VIAL IV PRN ×5 (02:18→20:12)
[2017-05-08] MEDS: traMADol 50 MG TAB PO PRN (04:36)
[2017-05-08] MEDS: PANTOPRAZOLE (EC) 40 MG TAB PO SCH ×2 (06:35→17:37)
[2017-05-08] MEDS: SOD CHLORIDE 0.9% 1,000 ML IV SCH ×3 (06:43→21:41)
[2017-05-08 08:26] LABS: BASOPHIL # 0.2 10^3/ul (0.0-0.1); BASOPHILS % 1.7 % (0.0-2.0); EOSINOPHILS # 0.5 10^3/ul (0.0-0.5); EOSINOPHILS % 4.8 % (0.0-7.0); HEMATOCRIT 31.4 % (42.0-52.0); HEMOGLOBIN 9.4 g/dl (14.0-18.0); LYMPHOCYTES # 1.6 10^3/ul (0.8-2.9); MEAN CORPUSCULAR HEMOGLOBIN 24.1 pg (29.0-33.0); MEAN CORPUSCULAR HGB CONC 29.9 g/dl (32.0-37.0); MEAN CORPUSCULAR VOLUME 80.5 fl (82.0-101.0); MEAN PLATELET VOLUME 9.4 fl (7.4-10.4); MONOCYTES % 9.3 % (0.0-11.0); NEUTROPHIL # 7.4 10^3/ul (1.6-7.5); NEUTROPHILS % 68.7 % (39.0-77.0); PLATELET COUNT 440 10^3/UL (140-415); WHITE BLOOD COUNT 10.7 10^3/ul (4.8-10.8)
[2017-05-08 08:37] LABS: CALCIUM 8.8 mg/dl (8.4-10.2); CREATININE 0.7 mg/dl (0.61-1.24); MAGNESIUM 1.6 mg/dl (1.7-2.5); PHOSPHORUS 4.4 mg/dl (2.5-4.9); POTASSIUM 3.9 mmol/L (3.5-5.1)
[2017-05-08] MEDS: MULTIVITAMINS 10 ML, THIAMINE 100 MG, FOLIC ACID 1 MG in SOD CHLORIDE 0.9% 1,000 ML IVPB SCH (09:18)
[2017-05-08] MEDS: CHLORDIAZEPOXIDE 5 MG CAP PO SCH ×3 (09:19→20:12)
[2017-05-08] MEDS: THIAMINE 100 MG TAB PO SCH (09:19)
[2017-05-08] MEDS: FOLIC ACID 1 MG TAB PO SCH (09:19)
[2017-05-08] MEDS: FUROSEMIDE 20 MG TAB PO SCH (09:19)
[2017-05-08] MEDS: FERROUS SULFATE (EC) 325 MG TAB PO SCH ×2 (09:19→20:12)
[2017-05-08] MEDS: SUCRALFATE 1 GM TAB PO SCH ×4 (09:19→20:12)
--- NOTE | 2017-05-08 14:28 | PN ---
Date/Time of Note Date/Time of Note DATE: 05/08/17 TIME: 14:25 Assessment/Plan VTE Prophylaxis VTE Prophylaxis Intervention: SCD's Lines/Catheters IV Catheter Type (from Nrs): Peripheral IV Urinary Cath still in place: No Assessment/Plan Chief Complaint/Hosp Course S: Patient was seen by physical therapy team yesterday. bilateral hip x-rays were negative for fracture. No acute events overnight. O: VS (see below) PE: Constitutional: other (Appears slightly tired. No acute distress) Head: atraumatic, normocephalic Eyes: EOMI, PERRL Respiratory: clear to auscultation, normal air movement Cardiovascular: nl pulses, regular rate and rhythm Gastrointestinal: non-tender, soft Musculoskeletal: other (less tenderness on palpation of bilateral hips. Range of motion at some point was limited due to pain on both hips. No obvious deformity/swelling or erythema noted) Assessment/Plan: 52-year-old male with a history of chronic alcohol abuse, duodenal ulcer, pacemaker, pulmonary hypertension, iron deficiency anemia. 1. Bilateral hip pain, left worse than right -although again x-rays of both hips were negative for fracture. Seen by physical therapy. -Continue pain management -Per PT eval, likely need retirement facility versus home with home health PT, will ask case liner to set this up 2. Alcohol abuse, last drink 3 days ago -less tremors today. -Continue treating withdrawal symptoms banana bag, Librium, Ativan as needed -Abstinence advised 3. History of duodenal ulcer -PPI 4. History of pacemaker, placed per patient, in 2002 and it never been reevaluated -Advised patient to get a referral to cardiology from his PCP(has appointment next week) 5. Iron deficiency anemia Continue ferrous sulfate Problems: Exam/Review of Systems Vital Signs Vitals Vital Signs Date Time Temp Pulse Resp B/P Pulse Ox O2 Delivery O2 Flow Rate FiO2 05/08/17 12:12 98.0 87 18 137/78 98 05/08/17 07:51 Nasal Cannula 3.0 Intake and Output 05/07/17 05/07/17 05/08/17 15:00 23:00 07:00 Intake Total 2311.2 ml 1350 ml Output Total 800 ml 825 ml Balance 1511.2 ml 525 ml Results Result Diagram: 05/08/1746 12/9/17 0746 Results 24 hrs Laboratory Tests Test 05/08/17 07:46 White Blood Count 10.7 Red Blood Count 3.90 L Hemoglobin 9.4 L Hematocrit 31.4 L Mean Corpuscular Volume 80.5 L Mean Corpuscular Hemoglobin 24.1 L Mean Corpuscular Hemoglobin Concent 29.9 L Red Cell Distribution Width 19.0 H Platelet Count 440 H Mean Platelet Volume 9.4 Neutrophils % 68.7 Lymphocytes % 15.0 Monocytes % 9.3 Eosinophils % 4.8 Basophils % 1.7 Nucleated Red Blood Cells % 0.0 Neutrophils # 7.4 Lymphocytes # 1.6 Monocytes # 1.0 H Eosinophils # 0.5 Basophils # 0.2 H Nucleated Red Blood Cells # 0.0 Sodium Level 139 Potassium Level 3.9 Chloride Level 105 Carbon Dioxide Level 26 Anion Gap 12 Blood Urea Nitrogen 7 Creatinine 0.70 Glucose Level 97 Calcium Level 8.8 Phosphorus Level 4.4 Magnesium Level 1.6 L Medications Medications Current Medications Lorazepam (Ativan) 2 mg Q1H PRN IV ALCOHOL WITHDRAWAL Last administered on 01:18; Admin Dose 2 MG; Start 05/07/17 at 01:00 Lorazepam (Ativan) 0.5 mg Q8H PRN PO ANXIETY Last administered on 05/07/17 17: 27; Admin Dose 0.5 MG; Start 05/07/17 at 01:00 Ondansetron HCl (Zofran Inj) 4 mg Q6H PRN IV NAUSEA AND/OR VOMITING; Start 05/07/17 at 01:00 Acetaminophen (Tylenol Tab) 650 mg Q6H PRN PO PAIN LEVEL 1-3 OR FEVER; Start 05/07/17 at 01:00 Morphine Sulfate (morphine) 4 mg Q4H PRN IV PAIN LEVEL 7-10 Last administered on 05/08/17 11:09; Admin Dose 4 MG; Start 05/07/17 at 01:00 Ferrous Sulfate (Ferrous Sulfate (Ec)) 325 mg BID PO Last administered on 09:19; Admin Dose 325 MG; Start 05/07/17 at 09:00 Folic Acid (Folic Acid) 1 mg DAILY PO Last administered on 05/08/17 09:19; Admin Dose 1 MG; Start 05/07/17 at 09:00 Furosemide (Lasix) 20 mg DAILY PO Last administered on 05/08/17 09:19; Admin Dose 20 MG; Start 05/07/17 at 09:00 Pantoprazole (Protonix Tab) 40 mg BID@06,18 PO Last administered on 05/08/17 06:35; Admin Dose 40 MG; Start 05/07/17 at 06:00 Sucralfate (Carafate) 1 gm QID PO Last administered on 05/08/17 13:42; Admin Dose 1 GM; Start 05/07/17 at 09:00 Thiamine HCl (Vitamin B1) 100 mg DAILY PO Last administered on 05/08/17 09:19 ; Admin Dose 100 MG; Start 05/07/17 at 09:00 Tramadol HCl (Ultram) 50 mg Q6H PRN PO PAIN Last administered on 05/08/17 04: 36; Admin Dose 50 MG; Start 05/07/17 at 01:00 Chlordiazepoxide 10 mg 10 mg TID PO Last administered on 05/08/17 13:42; Admin Dose 10 MG; Start 05/07/17 at 09:00 Sodium Chloride 1,000 ml @ 100 mls/hr Q10H IV Last administered on 05/08/17 06:43; Admin Dose 100 MLS/HR; Start 05/07/17 at 02:00 Multivitamins 10 ml/Thiamine HCl 100 mg/Folic Acid 1 mg/Sodium Chloride 1,011.2 ml @ 125 mls/ hr DAILY@09 IVPB Last administered on 05/08/17 09:18; Admin Dose 125 MLS/HR; Start 05/07/17 at 09:00 Magnesium Sulfate (Magnesium Sulfate 2 Gm/50 ml) 50 ml @ 25 mls/hr ONCE ONCE IVPB ; Start 05/08/17 at 14:30; Stop 05/08/17 at 16:29; Status CHARLES ROBERTS May 08, 2017 14:28
[2017-05-08] MEDS ORDERED: MAGNESIUM SULFATE 2 GM/50 ML 50 ML IVPB ONE (14:30)
[2017-05-08 14:41] LABS: IRON 65 ug/dl (35-150)
[2017-05-08 14:50] LABS: TOTAL IRON BINDING CAPACITY 389 ug/dl (241-421)
[2017-05-09] VITALS (13 sets, daily range): BP systolic 125–154; BP diastolic 65–87; PULSE 91–110; RESP 17–21
[2017-05-09] MEDS: morphine 4 MG/ML VIAL IV PRN ×5 (00:43→17:49)
[2017-05-09] MEDS: LORAZEPAM 2 MG INJ IV PRN ×2 (02:41→21:39)
[2017-05-09] MEDS: PANTOPRAZOLE (EC) 40 MG TAB PO SCH ×2 (05:13→17:49)
[2017-05-09 06:41] LABS: BASOPHIL # 0.1 10^3/ul (0.0-0.1); BASOPHILS % 1.3 % (0.0-2.0); EOSINOPHILS # 0.7 10^3/ul (0.0-0.5); EOSINOPHILS % 6.8 % (0.0-7.0); HEMATOCRIT 31.6 % (42.0-52.0); HEMOGLOBIN 9.4 g/dl (14.0-18.0); LYMPHOCYTES # 1.5 10^3/ul (0.8-2.9); LYMPHOCYTES % 14.7 % (15.0-51.0); MEAN CORPUSCULAR HEMOGLOBIN 23.8 pg (29.0-33.0); MEAN CORPUSCULAR HGB CONC 29.7 g/dl (32.0-37.0); MEAN PLATELET VOLUME 9.4 fl (7.4-10.4); MONOCYTE # 1.1 10^3/ul (0.3-0.9); MONOCYTES % 10.1 % (0.0-11.0); NEUTROPHIL # 6.9 10^3/ul (1.6-7.5); NEUTROPHILS % 66.7 % (39.0-77.0); PLATELET COUNT 431 10^3/UL (140-415); RED BLOOD COUNT 3.95 10^6/ul (4.70-6.10); WHITE BLOOD COUNT 10.4 10^3/ul (4.8-10.8)
[2017-05-09 07:23] LABS: CALCIUM 8.8 mg/dl (8.4-10.2); CREATININE 0.7 mg/dl (0.61-1.24); MAGNESIUM 1.7 mg/dl (1.7-2.5); PHOSPHORUS 4.1 mg/dl (2.5-4.9); POTASSIUM 3.9 mmol/L (3.5-5.1)
[2017-05-09] MEDS: THIAMINE 100 MG TAB PO SCH (09:04)
[2017-05-09] MEDS: FUROSEMIDE 20 MG TAB PO SCH (09:04)
[2017-05-09] MEDS: FOLIC ACID 1 MG TAB PO SCH (09:04)
[2017-05-09] MEDS: FERROUS SULFATE (EC) 325 MG TAB PO SCH ×2 (09:04→20:10)
[2017-05-09] MEDS: SUCRALFATE 1 GM TAB PO SCH ×4 (09:05→20:10)
[2017-05-09] MEDS: CHLORDIAZEPOXIDE 5 MG CAP PO SCH ×3 (09:05→20:11)
[2017-05-09] MEDS: MULTIVITAMINS 10 ML, THIAMINE 100 MG, FOLIC ACID 1 MG in SOD CHLORIDE 0.9% 1,000 ML IVPB SCH (09:07)
--- NOTE | 2017-05-09 13:04 | PN ---
Date/Time of Note Date/Time of Note DATE: 05/09/17 TIME: 13:02 Assessment/Plan VTE Prophylaxis VTE Prophylaxis Intervention: SCD's Lines/Catheters IV Catheter Type (from Nrs): Peripheral IV Urinary Cath still in place: No Assessment/Plan Chief Complaint/Hosp Course S: Patient less confused, no acute events overnight. O: VS (see below) PE: Constitutional: other (Appears slightly tired. No acute distress) Head: atraumatic, normocephalic Eyes: EOMI, PERRL Respiratory: clear to auscultation, normal air movement Cardiovascular: nl pulses, regular rate and rhythm Gastrointestinal: non-tender, soft Musculoskeletal: other (less tenderness on palpation of bilateral hips. Range of motion at some point was limited due to pain on both hips. No obvious deformity/swelling or erythema noted) Assessment/Plan: 52-year-old male with a history of chronic alcohol abuse, duodenal ulcer, pacemaker, pulmonary hypertension, iron deficiency anemia. 1. Bilateral hip pain, left worse than right -although again x-rays of both hips were negative for fracture. Seen by physical therapy. -Continue pain management -Per PT eval, likely need [facility] facility versus home with home health PT, will ask manager case to set this up 2. Alcohol abuse, last drink 3 days ago -less tremors today. -Continue treating withdrawal symptoms banana bag, Librium, Ativan as needed -Abstinence advised 3. History of duodenal ulcer -PPI 4. History of pacemaker, placed per patient, in 2002 and it never been reevaluated -Advised patient to get a referral to cardiology from his PCP (has appointment next week) 5. Iron deficiency anemia Continue ferrous sulfate Dispo: Likely home in 24-48 hours as he continues to detoxify, and follow-up with manager case regarding home health set up Problems: Exam/Review of Systems Vital Signs Vitals Vital Signs Date Time Temp Pulse Resp B/P Pulse Ox O2 Delivery O2 Flow Rate FiO2 05/09/17 12:30 98.0 92 18 128/65 98 05/09/17 08:00 Nasal Cannula 05/09/17 01:58 3.0 Intake and Output 05/08/17 05/08/17 05/09/17 14:59 22:59 06:59 Intake Total 1750 ml 300 ml Output Total 1300 ml 700 ml Balance 450 ml -400 ml Results Result Diagram: 05/09/1761405/09/1715 Results 24 hrs Laboratory Tests Test 05/09/17 06:15 White Blood Count 10.4 Red Blood Count 3.95 L Hemoglobin 9.4 L Hematocrit 31.6 L Mean Corpuscular Volume 80.0 L Mean Corpuscular Hemoglobin 23.8 L Mean Corpuscular Hemoglobin Concent 29.7 L Red Cell Distribution Width 19.0 H Platelet Count 431 H Mean Platelet Volume 9.4 Neutrophils % 66.7 Lymphocytes % 14.7 L Monocytes % 10.1 Eosinophils % 6.8 Basophils % 1.3 Nucleated Red Blood Cells % 0.0 Neutrophils # 6.9 Lymphocytes # 1.5 Monocytes # 1.1 H Eosinophils # 0.7 H Basophils # 0.1 Nucleated Red Blood Cells # 0.0 Sodium Level 139 Potassium Level 3.9 Chloride Level 105 Carbon Dioxide Level 25 Anion Gap 13 Blood Urea Nitrogen 7 Creatinine 0.70 Glucose Level 97 Calcium Level 8.8 Phosphorus Level 4.1 Magnesium Level 1.7 Medications Medications Current Medications Lorazepam (Ativan) 2 mg Q1H PRN IV ALCOHOL WITHDRAWAL Last administered on 02:41; Admin Dose 2 MG; Start 05/07/17 at 01:00 Lorazepam (Ativan) 0.5 mg Q8H PRN PO ANXIETY Last administered on 05/07/17 17: 27; Admin Dose 0.5 MG; Start 05/07/17 at 01:00 Ondansetron HCl (Zofran Inj) 4 mg Q6H PRN IV NAUSEA AND/OR VOMITING; Start 05/07/17 at 01:00 Acetaminophen (Tylenol Tab) 650 mg Q6H PRN PO PAIN LEVEL 1-3 OR FEVER; Start 05/07/17 at 01:00 Morphine Sulfate (morphine) 4 mg Q4H PRN IV PAIN LEVEL 7-10 Last administered on 05/09/17 09:08; Admin Dose 4 MG; Start 05/07/17 at 01:00 Ferrous Sulfate (Ferrous Sulfate (Ec)) 325 mg BID PO Last administered on 05/09 09:04; Admin Dose 325 MG; Start 05/07/17 at 09:00 Folic Acid (Folic Acid) 1 mg DAILY PO Last administered on 05/09/17 09:04; Admin Dose 1 MG; Start 05/07/17 at 09:00 Furosemide (Lasix) 20 mg DAILY PO Last administered on 05/09/17 09:04; Admin Dose 20 MG; Start 05/07/17 at 09:00 Pantoprazole (Protonix Tab) 40 mg BID@06,18 PO Last administered on 05/09/17 05:13; Admin Dose 40 MG; Start 05/07/17 at 06:00 Sucralfate (Carafate) 1 gm QID PO Last administered on 05/09/17 09:05; Admin Dose 1 GM; Start 05/07/17 at 09:00 Thiamine HCl (Vitamin B1) 100 mg DAILY PO Last administered on 05/09/17 09:04 ; Admin Dose 100 MG; Start 05/07/17 at 09:00 Tramadol HCl (Ultram) 50 mg Q6H PRN PO PAIN Last administered on 05/08/17 04: 36; Admin Dose 50 MG; Start 05/07/17 at 01:00 Chlordiazepoxide 10 mg 10 mg TID PO Last administered on 05/09/17 09:05; Admin Dose 10 MG; Start 05/07/17 at 09:00 Sodium Chloride 1,000 ml @ 100 mls/hr Q10H IV Last administered on 05/08/17 21:41; Admin Dose 100 MLS/HR; Start 05/07/17 at 02:00 Multivitamins/ Thiamine HCl/ Folic Acid/Sodium Chloride (Mvi Adult/ Vitamin B1/ Folic Acid/NS) 1,011.2 ml @ 125 mls/ hr DAILY@09 IVPB Last administered on 09:07; Admin Dose 125 MLS/HR; Start 05/07/17 at 09:00 CHARLES MARTINEZ May 09, 2017 13:04
[2017-05-09] MEDS: SOD CHLORIDE 0.9% 1,000 ML IV SCH (14:00)
[2017-05-10] VITALS (11 sets, daily range): BP systolic 111–140; BP diastolic 55–68; PULSE 88–100; RESP 16–20
[2017-05-10] MEDS: SOD CHLORIDE 0.9% 1,000 ML IV SCH
[2017-05-10] MEDS: morphine 4 MG/ML VIAL IV PRN ×6 (00:40→22:27)
[2017-05-10] MEDS: PANTOPRAZOLE (EC) 40 MG TAB PO SCH ×2 (05:19→18:14)
[2017-05-10] MEDS: LORAZEPAM 2 MG INJ IV PRN (07:52)
[2017-05-10 08:25] LABS: BASOPHIL # 0.2 10^3/ul (0.0-0.1); BASOPHILS % 1.7 % (0.0-2.0); EOSINOPHILS # 0.5 10^3/ul (0.0-0.5); EOSINOPHILS % 5.3 % (0.0-7.0); HEMATOCRIT 31.9 % (42.0-52.0); HEMOGLOBIN 9.6 g/dl (14.0-18.0); LYMPHOCYTES # 1.6 10^3/ul (0.8-2.9); LYMPHOCYTES % 15.4 % (15.0-51.0); MEAN CORPUSCULAR HEMOGLOBIN 24.4 pg (29.0-33.0); MEAN CORPUSCULAR HGB CONC 30.1 g/dl (32.0-37.0); MEAN PLATELET VOLUME 9.8 fl (7.4-10.4); MONOCYTE # 1.4 10^3/ul (0.3-0.9); MONOCYTES % 13.6 % (0.0-11.0); NEUTROPHIL # 6.4 10^3/ul (1.6-7.5); NEUTROPHILS % 63.4 % (39.0-77.0); PLATELET COUNT 434 10^3/UL (140-415); RED BLOOD COUNT 3.94 10^6/ul (4.70-6.10); RED CELL DISTRIBUTION WIDTH 19.5 % (11.5-14.5); WHITE BLOOD COUNT 10.1 10^3/ul (4.8-10.8)
[2017-05-10 08:46] LABS: CALCIUM 9.2 mg/dl (8.4-10.2); CREATININE 0.69 mg/dl (0.61-1.24); POTASSIUM 3.9 mmol/L (3.5-5.1)
[2017-05-10] MEDS: SUCRALFATE 1 GM TAB PO SCH ×4 (09:00→21:11)
[2017-05-10] MEDS: FOLIC ACID 1 MG TAB PO SCH (09:21)
[2017-05-10] MEDS: THIAMINE 100 MG TAB PO SCH (09:21)
[2017-05-10] MEDS: FUROSEMIDE 20 MG TAB PO SCH (09:21)
[2017-05-10] MEDS: FERROUS SULFATE (EC) 325 MG TAB PO SCH ×2 (09:22→21:11)
[2017-05-10] MEDS: CHLORDIAZEPOXIDE 5 MG CAP PO SCH ×2 (09:22→21:11)
[2017-05-10] MEDS: ACETAMINOPHEN 325 MG TAB PO PRN ×2 (11:51→16:54)
[2017-05-10] MEDS: LORAZEPAM 0.5 MG TAB PO PRN (17:03)
--- NOTE | 2017-05-10 17:28 | PN ---
Date/Time of Note Date/Time of Note DATE: 05/10/17 TIME: 17:22 Assessment/Plan VTE Prophylaxis VTE Prophylaxis Intervention: SCD's Lines/Catheters IV Catheter Type (from Nrsg): Saline Lock Urinary Cath still in place: No Assessment/Plan Assessment/Plan 52 yo M with pmhx EtOH abuse, chronic diastolic HF, h/o PM v ICD placement for unclear reasons admitted for chronic back pain. 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 CM consult placed Subjective 24 Hr Interval Summary Free Text/Dictation States he's been having episodes of shooting pain in L leg for the past few mos. No weight loss, fevers, chills, or compromise of bowel or bladder function. Reports tingling in all 10 fingertips, no LE paresthesias Exam/Review of Systems Vital Signs Vitals Vital Signs Date Time Temp Pulse Resp B/P Pulse Ox O2 Delivery O2 Flow Rate FiO2 05/10/17 15:47 88 117/64 96 Room Air 05/10/17 15:46 98.4 17 05/10/17 14:05 3.0 Intake and Output 05/09/17 05/09/17 05/10/17 15:00 23:00 07:00 Intake Total 1750 ml 350 ml Output Total 1800 ml 1200 ml Balance -50 ml -850 ml Exam nad no mrg lungs clear abd soft no rashes +straight leg raise on L 5/5 strength bl LEs, sensorium intact to light touch bl LEs upper exts with 5/5 strength bl, decreased sensation in fingertips Results Result Diagram: 05/10/17 0714 05/10/17 0714 Results 24 hrs Laboratory Tests Test 05/10/17 07:14 White Blood Count 10.1 Red Blood Count 3.94 L Hemoglobin 9.6 L Hematocrit 31.9 L Mean Corpuscular Volume 81.0 L Mean Corpuscular Hemoglobin 24.4 L Mean Corpuscular Hemoglobin Concent 30.1 L Red Cell Distribution Width 19.5 H Platelet Count 434 H Mean Platelet Volume 9.8 Neutrophils % 63.4 Lymphocytes % 15.4 Monocytes % 13.6 H Eosinophils % 5.3 Basophils % 1.7 Nucleated Red Blood Cells % 0.0 Neutrophils # 6.4 Lymphocytes # 1.6 Monocytes # 1.4 H Eosinophils # 0.5 Basophils # 0.2 H Nucleated Red Blood Cells # 0.0 Sodium Level 140 Potassium Level 3.9 Chloride Level 105 Carbon Dioxide Level 25 Anion Gap 14 Blood Urea Nitrogen 9 Creatinine 0.69 Glucose Level 96 Calcium Level 9.2 Medications Medications Current Medications Lorazepam (Ativan) 0.5 mg Q8H PRN PO ANXIETY Last administered on 05/10/17 17 :03; Admin Dose 0.5 MG; Start 05/07/17 at 01:00 Ondansetron HCl (Zofran Inj) 4 mg Q6H PRN IV NAUSEA AND/OR VOMITING; Start 05/07/17 at 01:00 Acetaminophen (Tylenol Tab) 650 mg Q6H PRN PO PAIN LEVEL 1-3 OR FEVER Last administered on 05/10/17 16:54; Admin Dose 650 MG; Start 05/07/17 at 01:00 Morphine Sulfate (morphine) 4 mg Q4H PRN IV PAIN LEVEL 7-10 Last administered on 05/10/17 14:13; Admin Dose 4 MG; Start 05/07/17 at 01:00 Ferrous Sulfate (Ferrous Sulfate (Ec)) 325 mg BID PO Last administered on 05/10 09:22; Admin Dose 325 MG; Start 05/07/17 at 09:00 Folic Acid (Folic Acid) 1 mg DAILY PO Last administered on 05/10/17 09:21; Admin Dose 1 MG; Start 05/07/17 at 09:00 Furosemide (Lasix) 20 mg DAILY PO Last administered on 05/10/17 09:21; Admin Dose 20 MG; Start 05/07/17 at 09:00 Pantoprazole (Protonix Tab) 40 mg BID@,18 PO Last administered on 05/10/17 05:19; Admin Dose 40 MG; Start 05/07/17 at 06:00 Sucralfate (Carafate) 1 gm QID PO Last administered on 05/10/17 16:54; Admin Dose 1 GM; Start 05/07/17 at 09:00 Thiamine HCl (Vitamin B1) 100 mg DAILY PO Last administered on 05/10/17 09:21 ; Admin Dose 100 MG; Start 05/07/17 at 09:00 Chlordiazepoxide (Librium) 10 mg BID PO ; Start 05/10/17 at 21:00; Stop at 09:01 Polyethylene Glycol (Miralax) 119 gm DAILY PO ; Start 05/11/17 at 09:00; Status UNV Lidocaine (Lidoderm) 1 patch DAILY TD ; Start 05/10/17 at 17:30; Status UNV Multivitamins Therapeutic (Theragran) 1 tab DAILY PO ; Start 05/11/17 at 09:00 ; Status UNV AL DAVIES MD May 10, 2017 17:28
[2017-05-10] MEDS: LIDOCAINE 5% PATCH TD SCH (21:08)
[2017-05-11] MEDS ORDERED: morphine 2 MG INJ IV STA (00:22)
[2017-05-11] MEDS: LORAZEPAM 0.5 MG TAB PO PRN ×3 (01:26→20:53)
[2017-05-11] MEDS: morphine 4 MG/ML VIAL IV PRN ×2 (03:16→07:47)
[2017-05-11 05:03] LABS: BASOPHIL # 0.1 10^3/ul (0.0-0.1); BASOPHILS % 1.5 % (0.0-2.0); EOSINOPHILS # 0.3 10^3/ul (0.0-0.5); EOSINOPHILS % 2.8 % (0.0-7.0); HEMATOCRIT 34.3 % (42.0-52.0); HEMOGLOBIN 10.3 g/dl (14.0-18.0); LYMPHOCYTES # 1.5 10^3/ul (0.8-2.9); MEAN CORPUSCULAR HEMOGLOBIN 24.3 pg (29.0-33.0); MEAN CORPUSCULAR VOLUME 80.9 fl (82.0-101.0); MEAN PLATELET VOLUME 9.7 fl (7.4-10.4); MONOCYTE # 1.3 10^3/ul (0.3-0.9); MONOCYTES % 14.2 % (0.0-11.0); NEUTROPHIL # 6.1 10^3/ul (1.6-7.5); PLATELET COUNT 437 10^3/UL (140-415); RED BLOOD COUNT 4.24 10^6/ul (4.70-6.10); RED CELL DISTRIBUTION WIDTH 20.6 % (11.5-14.5); WHITE BLOOD COUNT 9.4 10^3/ul (4.8-10.8)
[2017-05-11] MEDS: HYDROCODONE/APAP (5/325) TAB PO PRN ×3 (05:23→17:40)
[2017-05-11] MEDS: PANTOPRAZOLE (EC) 40 MG TAB PO SCH ×2 (05:23→17:41)
[2017-05-11 05:28] LABS: ALBUMIN 3.8 g/dl (3.3-4.9); BILIRUBIN,INDIRECT 0.5 mg/dl (0-1.1); BILIRUBIN,TOTAL 0.5 mg/dl (0.2-1.3); TOTAL PROTEIN 7.6 g/dl (6.1-8.1)
[2017-05-11 05:31] LABS: CALCIUM 9.5 mg/dl (8.4-10.2); CREATININE 0.77 mg/dl (0.61-1.24)
[2017-05-11 06:52] LABS: THYROID STIMULATING HORMONE 1.81 MIU/L (0.465-4.680)
[2017-05-11 08:05] VITALS: BP 120/57; RESP 20
[2017-05-11] MEDS: MULTIVITAMINS THERAPEUTIC TAB PO SCH (08:51)
[2017-05-11] MEDS: FUROSEMIDE 20 MG TAB PO SCH (08:51)
[2017-05-11] MEDS: FOLIC ACID 1 MG TAB PO SCH (08:51)
[2017-05-11] MEDS: FERROUS SULFATE (EC) 325 MG TAB PO SCH ×2 (08:52→20:02)
[2017-05-11] MEDS: SUCRALFATE 1 GM TAB PO SCH ×4 (08:52→20:02)
[2017-05-11] MEDS: CHLORDIAZEPOXIDE 5 MG CAP PO SCH (08:52)
[2017-05-11] MEDS: LIDOCAINE 5% PATCH TD SCH (08:53)
[2017-05-11] MEDS: THIAMINE 100 MG TAB PO SCH (08:56)
[2017-05-11] MEDS: POLYETHYLENE GLYCOL 3350 119 GM POWDER PO SCH (10:51)
[2017-05-11] MEDS ORDERED: CYCLOBENZAPRINE 10 MG TAB PO ONE (13:00)
--- NOTE | 2017-05-11 13:15 | PN ---
Date/Time of Note Date/Time of Note DATE: 05/11/17 TIME: 13:13 Assessment/Plan VTE Prophylaxis VTE Prophylaxis Intervention: SCD's Lines/Catheters IV Catheter Type (from Nrsg): Saline Lock Urinary Cath still in place: No Assessment/Plan Assessment/Plan 52 yo M with pmhx EtOH abuse, chronic diastolic HF, h/o PM v ICD placement for unclear reasons admitted for chronic back pain. 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 most likely 2/2 REGAN v EtOH #h/o PM placement and diastolic HF cont BP meds other: cont home PPI dispo: PT advising SNF. CM consult placed previously Subjective 24 Hr Interval Summary Free Text/Dictation L hip pain still present. working with PT at time of my eval Exam/Review of Systems Vital Signs Vitals Vital Signs Date Time Temp Pulse Resp B/P Pulse Ox O2 Delivery O2 Flow Rate FiO2 05/11/17 08:05 98.7 85 20 120/57 93 05/11/17 01:15 3.0 05/10/17 16:30 Room Air Intake and Output 05/10/17 05/10/17 05/11/17 15:00 23:00 07:00 Intake Total 1000 ml 750 ml Output Total 950 ml 650 ml Balance 50 ml 100 ml Exam anxious resp nonlabored no abd distension responds to questions appropriately no rashes Hep C Ab neg Results Result Diagram: 05/11/17 0428 05/11/17427 Results 24 hrs Laboratory Tests Test 05/11/17 04:28 White Blood Count 9.4 Red Blood Count 4.24 L Hemoglobin 10.3 L Hematocrit 34.3 L Mean Corpuscular Volume 80.9 L Mean Corpuscular Hemoglobin 24.3 L Mean Corpuscular Hemoglobin Concent 30.0 L Red Cell Distribution Width 20.6 H Platelet Count 437 H Mean Platelet Volume 9.7 Neutrophils % 65.0 Lymphocytes % 16.0 Monocytes % 14.2 H Eosinophils % 2.8 Basophils % 1.5 Nucleated Red Blood Cells % 0.0 Neutrophils # 6.1 Lymphocytes # 1.5 Monocytes # 1.3 H Eosinophils # 0.3 Basophils # 0.1 Nucleated Red Blood Cells # 0.0 Sodium Level 140 Potassium Level 4.0 Chloride Level 103 Carbon Dioxide Level 27 Anion Gap 14 Blood Urea Nitrogen 10 Creatinine 0.77 Glucose Level 104 Calcium Level 9.5 Total Bilirubin 0.5 Direct Bilirubin 0.00 Indirect Bilirubin 0.5 Aspartate Amino Transf (AST/SGOT) 236 H Alanine Aminotransferase (ALT/SGPT) 70 H Alkaline Phosphatase 283 H Total Protein 7.6 Albumin 3.8 Vitamin B12 Level 939 H Thyroid Stimulating Hormone (TSH) 1.810 Hepatitis C Antibody NEGATIVE Medications Medications Current Medications Lorazepam (Ativan) 0.5 mg Q8H PRN PO ANXIETY Last administered on 05/11/17 10 :32; Admin Dose 0.5 MG; Start 05/07/17 at 01:00 Ondansetron HCl (Zofran Inj) 4 mg Q6H PRN IV NAUSEA AND/OR VOMITING; Start 05/07/17 at 01:00 Acetaminophen (Tylenol Tab) 650 mg Q6H PRN PO PAIN LEVEL 1-3 OR FEVER Last administered on 05/10/17 16:54; Admin Dose 650 MG; Start 05/07/17 at 01:00 Ferrous Sulfate (Ferrous Sulfate (Ec)) 325 mg BID PO Last administered on 05/11 08:52; Admin Dose 325 MG; Start 05/07/17 at 09:00 Folic Acid (Folic Acid) 1 mg DAILY PO Last administered on 05/11/17 08:51; Admin Dose 1 MG; Start 05/07/17 at 09:00 Furosemide (Lasix) 20 mg DAILY PO Last administered on 05/11/17 08:51; Admin Dose 20 MG; Start 05/07/17 at 09:00 Pantoprazole (Protonix Tab) 40 mg BID@,18 PO Last administered on 05/11/17 05:23; Admin Dose 40 MG; Start 05/07/17 at 06:00 Sucralfate (Carafate) 1 gm QID PO Last administered on 05/11/17 13:04; Admin Dose 1 GM; Start 05/07/17 at 09:00 Thiamine HCl (Vitamin B1) 100 mg DAILY PO Last administered on 05/11/17 08:56 ; Admin Dose 100 MG; Start 05/07/17 at 09:00 Polyethylene Glycol (Miralax) 119 gm DAILY PO Last administered on 05/11/17 10:51; Admin Dose 119 GM; Start 05/11/17 at 09:00 Lidocaine (Lidoderm) 1 patch DAILY TD Last administered on 05/11/17 08:53; Admin Dose 1 PATCH; Start 05/10/17 at 17:30 Multivitamins Therapeutic (Theragran) 1 tab DAILY PO Last administered on 05/11 08:51; Admin Dose 1 TAB; Start 05/11/17 at 09:00 Acetaminophen/ Hydrocodone Bitart (Drake (5/325)) 1 tab Q6H PRN PO PAIN LEVEL 4 -6 Last administered on 05/11/17 11:23; Admin Dose 1 TAB; Start 05/11/17 at 00:30 Chlordiazepoxide (Librium) 10 mg ONCE ONCE PO ; Start 05/12/17 at 09:00; Stop 05/12/17 at 09:01 AL DAVIES MD May 11, 2017 13:15
[2017-05-11 14:30] VITALS: BP 111/54; RESP 20
--- NOTE | 2017-05-11 15:22 | RADRPT ---
PROCEDURE: XR lumbar spine CLINICAL INDICATION: Chronic back pain TECHNIQUE: 2 views of the lumbar spine obtained COMPARISON: None available FINDINGS: There is mild dextroconvex lumbar scoliosis with preservation of the lumbar lordosis. No significant spondylolisthesis is seen. No fracture is identified. Vertebral bodies are maintained in height. Th ere are multilevel anterior osteophytes down to the L3-4 level. There is mild disc space narrowing L 3-4. Facet arthropathy is visualized at the L4-5 and L5-S1 levels. IMPRESSION: Multilevel lumbar spondylosis/degenerative enthesopathy. Mild dextroconvex lumbar scoliosis. RPTAT: VV .Franklyn Craven MD, MD Date Time Electronically viewed and signed by .Franklyn Craven MD, on 05/11/2017 15:21 .O/
[2017-05-11] MEDS: HYDROCODONE/APAP (10/325) TAB PO PRN (20:03)
[2017-05-11 20:44] VITALS: BP 115/60; RESP 18
[2017-05-12 01:33] VITALS: BP 129/63; RESP 19
[2017-05-12] MEDS: HYDROCODONE/APAP (10/325) TAB PO PRN ×5 (04:14→16:10)
[2017-05-12] MEDS: PANTOPRAZOLE (EC) 40 MG TAB PO SCH (05:11)
[2017-05-12 05:52] LABS: BASOPHIL # 0.1 10^3/ul (0.0-0.1); BASOPHILS % 1.5 % (0.0-2.0); EOSINOPHILS # 0.3 10^3/ul (0.0-0.5); HEMOGLOBIN 10.7 g/dl (14.0-18.0); LYMPHOCYTES # 1.9 10^3/ul (0.8-2.9); LYMPHOCYTES % 19.9 % (15.0-51.0); MEAN CORPUSCULAR HEMOGLOBIN 24.4 pg (29.0-33.0); MEAN CORPUSCULAR HGB CONC 30.6 g/dl (32.0-37.0); MEAN CORPUSCULAR VOLUME 79.7 fl (82.0-101.0); MEAN PLATELET VOLUME 9.8 fl (7.4-10.4); MONOCYTE # 1.3 10^3/ul (0.3-0.9); MONOCYTES % 14.3 % (0.0-11.0); NEUTROPHIL # 5.6 10^3/ul (1.6-7.5); NEUTROPHILS % 60.7 % (39.0-77.0); PLATELET COUNT 423 10^3/UL (140-415); RED BLOOD COUNT 4.39 10^6/ul (4.70-6.10); WHITE BLOOD COUNT 9.3 10^3/ul (4.8-10.8)
[2017-05-12 06:25] LABS: CALCIUM 9.7 mg/dl (8.4-10.2); CREATININE 0.77 mg/dl (0.61-1.24); POTASSIUM 3.8 mmol/L (3.5-5.1)
[2017-05-12 08:05] VITALS: BP 123/67; RESP 20
[2017-05-12] MEDS: FOLIC ACID 1 MG TAB PO SCH (08:18)
[2017-05-12] MEDS: FERROUS SULFATE (EC) 325 MG TAB PO SCH (08:18)
[2017-05-12] MEDS: SUCRALFATE 1 GM TAB PO SCH ×3 (08:18→17:00)
[2017-05-12] MEDS: THIAMINE 100 MG TAB PO SCH (08:18)
[2017-05-12] MEDS: MULTIVITAMINS THERAPEUTIC TAB PO SCH (08:18)
[2017-05-12] MEDS: FUROSEMIDE 20 MG TAB PO SCH (08:19)
[2017-05-12] MEDS: LIDOCAINE 5% PATCH TD SCH (08:19)
[2017-05-12] MEDS: POLYETHYLENE GLYCOL 3350 119 GM POWDER PO SCH (09:00)
[2017-05-12] MEDS ORDERED: CHLORDIAZEPOXIDE 5 MG CAP PO ONE (09:00)
--- NOTE | 2017-05-12 10:12 | DS ---
Date/Time of Note Date/Time of Note DATE: 05/12/17 TIME: 10:06 Discharge Summary Admission/Discharge Info Admit Date/Time May 06, 2017 at 23:40 Discharge Date/Time Discharge Diagnosis alcohol withdrawal, chronic pain Patient Condition: Stable Consults PT Procedures 12.8: bl hip xrays unremarkable 12.12 LSpine XR IMPRESSION: Multilevel lumbar spondylosis/degenerative enthesopathy. Mild dextroconvex lumbar scoliosis. Hx of Present Illness This is a 52-year-old male with a history of chronic alcohol abuse, duodenal ulcer, pacemaker, pulmonary hypertension, iron deficiency anemia. Patient initially went to an outside hospital complaining of left hip pain and difficulty ambulation. He was transferred to [facility] for insurance reason. Patient drinks almost every other day. He said he has been having left hip pain for the past 6 months which has been progressively getting worse to the point where now ambulating is been difficult. He denied back pain , chest pain, shortness of breath. On physical examination there is no obvious deformity but range of motion at some point was limited due to pain. During my physical examination, patient also started complaining of right hip pain and at that moment he said he actually has been having pain in both of his left and right hip. Patient was admitted here recently and was actually discharged last week after he initially presented with hypoxia, possibly secondary to pneumonia. . Hospital Course 52 yo M with pmhx EtOH abuse, chronic diastolic HF, h/o PM v ICD placement for unclear reasons admitted for chronic hip pain. Pt with + straight leg on L clinically suggestive of sciatica. Pt seen by PT which advised sub acute rehab for more PT. Plain films without evidence of fracture/mass. For pt's EtOHism, pt was safely detoxed with Librium taper. 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 No UE weakness thus no compelling indication for urgent CSpine imaging. Pt to continue PT at rehab and f/u with PCP within 1 week for further evaluation, consideration of NCS/EMG etc. B12/TSH were nl. Pt's labs with transaminitis. Hep C Ab negative and US from August with fatty infiltration. Transaminitis likely 2/2 REGAN + EtOH. EtOH cessation was advised. copy of this dc summary personally faxed to [facility] Home Meds Active Scripts Furosemide (Lasix) 20 Mg Tab, 20 MG PO DAILY, #30 TAB Prov:IMTIAZ NEWELL NP 04/30/17 Chlordiazepoxide* (Chlordiazepoxide*) 5 Mg Capsule, 5 MG PO TID, #6 CAP Prov:IMTIAZ NEWELL NP 04/30/17 Tramadol HCl (Tramadol HCl) 50 Mg Tablet, 50 MG PO Q6H Y for PAIN, #20 TAB Prov:IMTIAZ NEWELL NP 04/30/17 Ferrous Sulfate* (Ferrous Sulfate*) 325 Mg Tabec, 325 MG PO BID, #60 TAB Prov:IMTIAZ NEWELL NP 04/30/17 Sucralfate (Carafate) 1 Gm Tablet, 1 GM PO QID, #120 TAB Prov:IMTIAZ NEWELL NP 04/30/17 Thiamine* (Vitamin B-1*) 100 Mg Tablet, 100 MG PO DAILY, #30 TAB Prov:IMTIAZ NEWELL NP 04/30/17 Folic Acid* (Folic Acid*) 1 Mg Tablet, 1 MG PO DAILY, #30 TAB Prov:IMTIAZ NEWELL NP 04/30/17 Pantoprazole* (Pantoprazole*) 40 Mg Tablet.dr, 40 MG PO BID@06,18, #60 TAB Prov:IMTIAZ NEWELL NP 04/30/17 Reported Medications Lorazepam* (Lorazepam*) 0.5 Mg Tablet, 0.5 MG PO HS Y for ANXIETY, TAB 04/27/17 Follow-up Plan PCP within 7 days Primary Care Provider [facility] [place] [address] Time spent on discharge: > 30 minutes Pending Labs Laboratory Tests Test 05/12/17 04:51 White Blood Count 9.310^3/ul (4.8-10.8) Red Blood Count 4.3910^6/ul (4.70-6.10) Hemoglobin 10.7g/dl (14.0-18.0) Hematocrit 35.0% (42.0-52.0) Mean Corpuscular Volume 79.7fl (82.0-101.0) Mean Corpuscular Hemoglobin 24.4pg (29.0-33.0) Mean Corpuscular Hemoglobin Concent 30.6g/dl (32.0-37.0) Red Cell Distribution Width 21.0% (11.5-14.5) Platelet Count 54126^3/UL (140-415) Mean Platelet Volume 9.8fl (7.4-10.4) Neutrophils % 60.7% (39.0-77.0) Lymphocytes % 19.9% (15.0-51.0) Monocytes % 14.3% (0.0-11.0) Eosinophils % 3.0% (0.0-7.0) Basophils % 1.5% (0.0-2.0) Nucleated Red Blood Cells % 0.0/100WBC (0.0-0.0) Neutrophils # 5.610^3/ul (1.6-7.5) Lymphocytes # 1.910^3/ul (0.8-2.9) Monocytes # 1.310^3/ul (0.3-0.9) Eosinophils # 0.310^3/ul (0.0-0.5) Basophils # 0.110^3/ul (0.0-0.1) Nucleated Red Blood Cells # 0.010^3/ul (0.0-0.0) Sodium Level 141mmol/L (135-144) Potassium Level 3.8mmol/L (3.5-5.1) Chloride Level 104mmol/L (97-110) Carbon Dioxide Level 22mmol/L (21-31) Anion Gap 19 (8-16) Blood Urea Nitrogen 13mg/dl (7-20) Creatinine 0.77mg/dl (0.61-1.24) Glucose Level 141mg/dl (70-220) Calcium Level 9.7mg/dl (8.4-10.2) AL DAVIES MD May 12, 2017 10:12
--- NOTE | 2017-05-12 10:28 | PDOCDIS ---
Discharge Instructions DIAGNOSIS Discharge Diagnosis alcohol withdrawal, chronic pain CONDITION Patient Condition: Stable FOLLOW UP/APPOINTMENTS Follow-up Plan Follow up with your regular health care team at the [facility] in [place] within 7 days Address: [address] [place] [id number] As we discussed, the tingling in your fingers might be due to arthritis in your neck or a problem with the communication between the nerves in your hands. Please ask your regular health care team if they think an xray or a nerve conduction study would be helpful You need to stop drinking to get healthy in the custodial. Please ask your regular doctor for resources in your community to helping with stopping drinking AL DAVIES MD May 12, 2017 10:27
[2017-05-12] MEDS: ACETAMINOPHEN 325 MG TAB PO PRN (11:22)
[2017-05-12] MEDS: LORAZEPAM 0.5 MG TAB PO PRN (12:25)
[2017-05-12 14:18] VITALS: BP 116/75; RESP 20
== END 2017-05-12 17:25 | DRG 552 ==
LOC: MS4 23:40 → MS1 05-10 16:19
PROVIDERS: ADMIT Internal Medicine; ATTEND Internal Medicine
DX: M54.32 Sciatica, left side (principal); I50.32 Chronic diastolic (congestive) heart failure; I27.20 Pulmonary hypertension, unspecified; G62.1 Alcoholic polyneuropathy; M41.86 Other forms of scoliosis, lumbar region; F10.239 Alcohol dependence with withdrawal, unspecified; D50.9 Iron deficiency anemia, unspecified; Z87.11 Personal history of peptic ulcer disease; M25.551 Pain in right hip; Z95.0 Presence of cardiac pacemaker; K75.81 Nonalcoholic steatohepatitis (NASH); G89.29 Other chronic pain; M47.896 Other spondylosis, lumbar region; M46.06 Spinal enthesopathy, lumbar region
CPT/HCPCS: 72100; 73510; 80048; 80053; 80076; 82607; 83540; 83735; 84100; 84443; 85025; 86803; 94640; 94664; 97110; 97116; 97163; 97530; J2060; J2270; J3411; J3475; J7030; J7042